=== PATIENT | male | born 1950 | race Caucasian/White ===

== ENCOUNTER 2018-07-21 07:49 | Inpatient (IN) | payer MEDICARE ==
[2018-07-21 08:38] LABS: ABS Basophils 0 10^3/ul (0-0.2); ABS Eosinophils 0 10^3/ul (0-0.6); ABS Lymphocytes 0.5 10^3/ul (1.0-4.8); ABS Monocytes 1.3 10^3/ul (0-0.8); ABS Neutrophils 15.2 10^3/ul (1.5-7.7); ABS Nucleated RBC 0 10^3/ul; Eosinophil % 0.1 %; Hematocrit 34 % (42-52); Hemoglobin 11.7 g/dl (14.0-18.0); Mean Corpuscular HGB Conc 34 g/dl (31-36); Mean Corpuscular Hemoglobin 31 pg (27-31); Mean Corpuscular Volume 91 fL (80-94); Mean Platelet Volume 6.9 fL (7.4-10.4); Nucleated Red Blood Cells % 0; Platelet Count 347 10^3/ul (150-450); Red Blood Count 3.75 10^6/ul (4.00-5.40); Red Cell Distribution Width 13 % (10.5-15); White Blood Count 17.1 10^3/ul (3.5-10.8)
[2018-07-21] MEDS ORDERED: Levofloxacin 750 MG IVPREMIX(* 750 MG/150 ML BAG IVPB ONE (08:42)
[2018-07-21] MEDS ORDERED: Piperacillin/Tazobac ADVAN(*) 3.375 GM in NS 0.9% 100 ML* 100 ML IVPB ONE (08:42)
--- NOTE | 2018-07-21 08:42 | ED ---
HPI Febrile Illness - HPI Summary HPI Summary: Patient is a 67-year-old male from an adult residential program, the [facility] , presenting to the ED with cough, congestion, fatigue and subjective fevers over the course of 10 days. History of CHF, atrial flutter, prostate cancer and pneumonias which have required hospital admissions. Patient is endorsing cough all evening and not feeling well. Staff noted his fever to be 103 and SPO2 was 91%. Patient was then placed on [address] a non-rebreather mask and sent to the ED. Patient states over the course of the last 10 days he feels he has been worsening and has not gone out of bed much. He also endorses decreased PO intake. - History of Current Complaint Chief Complaint: EDGeneral Time Seen by Provider: 07/21/18 08:02 Hx Obtained From: Patient, Family/Elevator Technician Onset/Duration: Started Days Ago - 10 days ago Timing: Constant Initial Severity: Moderate Current Severity: Moderate Pain Intensity: 4 Pain Scale Used: 0-10 Numeric Aggravating Factors: Nothing Alleviating Factors: Nothing Associated Signs and Symptoms: Chills, Cough, Diaphoresis - Risk Factors Pseudomonas Risk Factors: Negative - Additional Pertinent History Referred By: Other - [facility] Current Antibiotics: No Fever Imaging Clerk Taken: None - Allergy/Home Medications Allergies/Adverse Reactions: Allergies Allergy/AdvReac Type Severity Reaction Status Date / Time warfarin Allergy Unknown Verified 07/21/18 08:03 Reaction Details Home Medications: Home Medications Acetaminophen 650 mg PO SEE INSTRUCTIONS PRN 07/21/18 [History Confirmed ] Al Hydrox/Mg Hydrox/Simet LIQ* [Maalox Plus*] 30 ml PO Q4H PRN 07/21/18 [ History Confirmed 07/21/18] Albuterol inh POWDER (NF) [Proair Respiclick] 2 puff INH SEE INSTRUCTIONS PRN [History Confirmed 07/21/18] Aspirin 325 mg PO DAILY 07/21/18 [History Confirmed 07/21/18] Carvedilol 6.25 mg PO BID 07/21/18 [History Confirmed 07/21/18] Furosemide TAB* [Lasix TAB*] 40 mg PO BID 07/21/18 [History Confirmed 07/21/18] Kaopectate 30 ml PO SEE INSTRUCTIONS PRN 07/21/18 [History Confirmed 07/21/18] Losartan TAB* [Cozaar TAB*] 25 mg PO DAILY 07/21/18 [History Confirmed 07/21/18] Magnesium Hydroxide LIQ* [Milk of Magnesia LIQ*] 30 ml PO BID PRN 07/21/18 [ History Confirmed 07/21/18] guaiFENesin LIQ* [Robitussin*] 5 mg PO Q4H PRN 07/21/18 [History Confirmed 07/21] PMH/Surg Hx/FS Hx/Imm Hx Previously Healthy: Yes - Immunization History Hx Pertussis Vaccination: No Immunizations Up to Date: No Infectious Disease History: No Infectious Disease History: Denies: Traveled Outside the [place] in Last 30 Days - Social History Occupation: Unemployed, Disabled Lives: Snf Alcohol Use: None Hx Substance Use: No Substance Use Type: Reports: None Smoking Status (MU): Never Smoked Tobacco Review of Systems Positive: Fever, Chills, Fatigue, Skin Diaphoresis Negative: Photophobia, Blurred Vision Negative: Palpitations, Chest Pain Positive: Shortness Of Breath, Cough Positive: no symptoms reported, see HPI Negative: Arthralgia, Myalgia Negative: Headache, Weakness All Other Systems Reviewed And Are Negative: Yes Physical Exam Triage Information Reviewed: Yes Vital Signs On Initial Exam: Initial Vitals Temp Pulse Resp BP Pulse Ox 101.5 F 79 22 118/48 95 07/21/18 07:56 07/21/18 07:56 07/21/18 07:56 07/21/18 07:56 07/21/18 07:56 Vital Signs Reviewed: Yes Appearance: Positive: Ill-Appearing Skin: Positive: Skin Color Reflects Adequate Perfusion, Diaphoretic Head/Face: Positive: Normal Head/Face Inspection Eyes: Positive: EOMI, CATIE, Conjunctiva Clear Neck: Positive: No Lymphadenopathy Respiratory/Lung Sounds: Positive: Decreased Breath Sounds, Rhonchi - RLL Cardiovascular: Positive: Pulses are Symmetrical in both Upper and Lower Extremities. Negative: Leg Edema Left, Leg Edema Right Musculoskeletal: Positive: Strength/ROM Intact Neurological: Positive: Speech Normal Psychiatric: Positive: Normal, Affect/Mood Appropriate Diagnostics - Vital Signs Vital Signs Temp Pulse Resp BP Pulse Ox 07/21/18 08:00 79 96 07/21/18 07:59 79 94 07/21/18 07:58 80 118/48 96 07/21/18 07:56 101.5 F 79 22 118/48 95 - Laboratory Lab Results: Lab Results 07/21/18 07/21/18 Range/Units 08:23 08:29 WBC 17.1 H (3.5-10.8) 10^3/ul RBC 3.75 L (4.00-5.40) 10^6/ul Hgb 11.7 L (14.0-18.0) g/dl Hct 34 L (42-52) % MCV 91 (80-94) fL MCH 31 (27-31) pg MCHC 34 (31-36) g/dl RDW 13 (10.5-15) % Plt Count 347 (150-450) 10^3/ul MPV 6.9 L (7.4-10.4) fL Neut % (Auto) 89.3 % Lymph % (Auto) 3.0 % [place] % (Auto) 7.4 % Eos % (Auto) 0.1 % Baso % (Auto) 0.2 % Absolute Neuts (auto) 15.2 H (1.5-7.7) 10^3/ul Absolute Lymphs (auto) 0.5 L (1.0-4.8) 10^3/ul Absolute Monos (auto) 1.3 H (0-0.8) 10^3/ul Absolute Eos (auto) 0 (0-0.6) 10^3/ul Absolute Basos (auto) 0 (0-0.2) 10^3/ul Absolute Nucleated RBC 0 10^3/ul Nucleated RBC % 0 Influenza A (Rapid) Negative (Negative) Influenza B (Rapid) Negative (Negative) Result Diagrams: 07/21/18 08:23 07/21/18 08:23 Lab Statement: Any lab studies that have been ordered have been reviewed, and results considered in the medical decision making process. Course/Dx - Course Course Of Treatment: During the course of treatment, the patient is evaluated for fever, cough, sweats, chills and fatigue. He is high risk for PNA/ immunocompromised d/t his community living situation and CHF. His vital signs on arrival are noted to be 101.5, respirations 22 and 95% on 15L on a nonrebreather mask which he does not normally use at baseline. For these reasons, septic protocol was initiated immediately on arrival. However due to his CHF, began with 1 L fluids until labs were obtained to assess severity of CHF. Zosyn and Levaquin given. He continues to be on the nonrebreather mask with some improvement however his sat continues to remain at around 95%. Labs impressive for a 17,000 white count and significant left shift. Physical exam reveals RLL crackles and decreased breath sounds throughout otherwise. O2 sat at 97% and therefore switched from a nonrebreather mask to nasal cannula. 95% on 5L nasal cannula. He does not use oxygen at baseline at home. IMPRESSION: #. Moderately large subpulmonic RIGHT pleural effusion with proportional atelectasis. #. Probable bilateral inflammatory infiltrates/pneumonia. BNP 292 and another 1L NS ordered. Discussed with Dr. Rodriguez at 10:15am who agrees to see patient in the ED. - Febrile Illness Differential Diagnoses: Bacteremia, Fever of Unknown Origin, Pneumonia - Diagnoses Provider Diagnoses: Pneumonia, Pleural effusion - Provider Notifications Discussed Care Of Patient With: Nabil Rodriguez Time Discussed With Above Provider: 10:15 - will see patient in ED Instructed by Provider To: Admit As Inpatient - Critical Care Time Critical Care Time: 30-74 min Discharge - Sign-Out/Discharge Documenting (check all that apply): Patient Departure - Discharge Plan Condition: Fair Disposition: ADMITTED TO [facility] Referrals: Dickson FRAGOSO,Fermín Costello [Primary Care Provider] - - Billing Disposition and Condition Condition: FAIR Disposition: Admitted to [facility]
[2018-07-21] MEDS ORDERED: NS 0.9% 1000 ML* 1,000 ML IV ONE ×2 (08:44→10:18)
[2018-07-21 09:13] LABS: Albumin 3.1 g/dL (3.2-5.2); Albumin/Globulin Ratio 0.9 (1-3); BUN/Creatinine Ratio 17.6 (8-20); C Reactive Protein 271.47 mg/L (<8.01); Calcium 9.5 mg/dL (8.6-10.3); EGFR Non-African American 105.8 (>60); Globulin 3.4 g/dL (2-4); Total Bilirubin 0.6 mg/dL (0.2-1.0); Total Protein 6.5 g/dL (6.4-8.9)
[2018-07-21] MEDS ORDERED: Piperacillin/Tazobac (*) 3.375 GM BAG ONE (10:35)
[2018-07-21] MEDS ORDERED: Albuterol inh POWDER (NF) 1 PUFF MDI INH PRN (11:07)
[2018-07-21] MEDS ORDERED: guaiFENesin LIQ* 100 MG/5 ML UDC PO PRN (11:07)
[2018-07-21] MEDS ORDERED: Zosyn per Pharmacy* NOTE FOLLOW UP SCH (12:00)
[2018-07-21] MEDS ORDERED: Albuterol/Ipratropium NEB.SOL* Albuterol 2.5 MG/Ipratropium 0.5 MG 3 ML INH SCH (12:00)
[2018-07-21] MEDS ORDERED: Albuterol HFA INHALER* 8 gm MDI INH PRN (12:31)
--- NOTE | 2018-07-21 13:19 | HP ---
CC: Dr. Forman * ADMISSION HISTORY AND PHYSICAL: DATE OF ADMISSION: 07/21/18 PRIMARY CARE PROVIDER: Dr. Forman in [place] at [facility]. ATTENDING FOR THIS ADMISSION: Dr. Nabil Rodriguez.* (DICTATED BY CATE PAREKH NP) CHIEF COMPLAINT: Ten days of malaise, fever, fatigue, cough, and now shortness of breath. HISTORY OF PRESENT ILLNESS: This is a 67-year-old male patient, who resides at the [facility], moved to [place] approximately 7 to 8 months ago from [place] because he required some assistance after having a hospitalization down in [place]. The patient states he had a bout with congestive heart failure, paroxysmal AFib, pneumonia and respiratory failure for which he was hospitalized for 2 months. This all happened in 2014. He was convalescing and still had some additional needs for which he was accepted to reside at the [facility]. The patient states that he was at [facility] last Thursday and felt that he could not get through the mass because he was having fever and chills and felt very fatigued. Workers at the [facility] reported that the patient may have minimized some of his symptoms over the last week and a half and he reportedly had an increasing cough, has not been out of bed, has not wanted to eat or ambulate and today it was discovered that he did have a subjective fever of around 102. He was then brought to the emergency department for evaluation. Upon examination in the ED, he was noted to have some respiratory failure, was placed on 15 L nonrebreather for low O2 saturation, was also found to have high white count and continued fever. For these reasons, we were asked to evaluate the patient for admission. PAST MEDICAL HISTORY: Significant for congestive heart failure, unknown whether diastolic or systolic per the patient's report; history of asthma; history of paroxysmal atrial fibrillation; arthritis; and hypertension. PAST SURGICAL HISTORY: None reported. HOME MEDICATIONS: Include: 1. Guaifenesin 5 mL p.o. q.4 hours as needed. 2. Kaopectate 30 mL p.o. q.6 hours p.r.n. 3. Milk of magnesia 30 mL p.o. b.i.d. p.r.n. 4. Carvedilol 6.25 mg p.o. b.i.d. 5. Aspirin 325 mg daily. 6. Maalox 30 mL q.4 hours as needed. 7. Tylenol 650 mg q.6 hours as needed. 8. Albuterol (ProAir) 2 puffs q.4 hours as needed. 9. Losartan 25 mg p.o. daily. 10. Furosemide 40 mg p.o. b.i.d. FAMILY HISTORY: Both parents with cancer, now . SOCIAL HISTORY: The patient does not report any smoking. Does report a remote history of alcohol abuse. He has been sober since 1997. Denies any illicit drug use. He is unmarried and again lives in a residential at [facility]. His healthcare proxy and emergency contact is his brother, Clem Mckinney, phone number is [phone] or his nephew, Kevan, . They are both local to the area. REVIEW OF SYSTEMS: A 10-point review of systems is negative except as noted in the HPI above. PHYSICAL EXAMINATION GENERAL: The patient is alert, frail, ill-appearing. VITAL SIGNS: Currently, blood pressure 98/65, heart rate 75, respiratory rate 24, O2 saturation 97% on 5 L nasal cannula, temperature is 100.5 down from 101.5 upon arrival. HEENT: The patient is atraumatic, normocephalic. PERRLA with nonicteric sclerae. He does have some exudate from the inner canthus of his left eye that does appear purulent; however, his sclerae are clear. There was no redness or other issues noted. His oral mucosa is dry. Dentition is poor. Tongue is midline. NECK: Supple, nontender. No JVD noted. No carotid bruits auscultated. LUNGS: Clear at the apices. Very poor breath sounds on the right more than senior living up the right base. Left base with some diffuse rhonchi and intermittent rales. No appreciable wheeze. CARDIOVASCULAR: S1, S2 present. Rate and rhythm are regular. No murmurs, gallops, or rubs noted. He has regular sinus rhythm on telemetry. ABDOMEN: Soft, nontender, and nondistended. Positive bowel sounds in all 4 quadrants. : Deferred. MUSCULOSKELETAL: There is no clubbing, no cyanosis, no bipedal edema. He has + 2 distal pulses palpable. He does have some general weakness. NEUROLOGIC: He is grossly intact. Alert and oriented x3 with no focal deficits. PSYCHIATRIC: He is cooperative and appropriate. DIAGNOSTIC STUDIES/LAB DATA: WBCs 17.1, RBCs 3.75, hemoglobin 11.7, hematocrit 34, platelets 347. Sodium 130, potassium 4.0, chloride 97, CO2 25, creatinine 0.74, BUN 13, GFR is 105.8, glucose 104, lactic acid 0.8, calcium 9.5. Bilirubin 0.60, AST 31, ALT 38, alk phos 77. Troponin is negative at 0.03. CRP is 271.47. BNP is 292. Total protein 6.5, albumin 3.1, globulin 3.4. Influenza A and B rapid are negative. Blood cultures are pending. Imaging: EKG shows regular sinus rhythm with a right bundle branch block with no further acute ST segment changes noted. Chest x-ray, official read also evaluated by myself and the ER providers, shows moderately large subpulmonic right pleural effusion with proportional atelectasis and bilateral inflammatory infiltrates/pneumonia. IMPRESSION: This is a 67-year-old male that presented with fever, malaise and cough x10 days, being admitted for same. DIAGNOSES: 1. Bilateral pneumonia, community acquired with right-sided large pleural effusion. The patient does have significant amount of leukocytosis. His influenza swab is negative. We will send him for Strep pneumo and Legionella antigens in the urine. He has already received empiric Zosyn and 1 dose of Levaquin in the emergency department. He is also having accompanying respiratory failure, which is likely secondary to this large right pleural effusion. Initially, he was on 15 L nonrebreather; however, he is satting well on 5 L nasal cannula. This will be continued and titrated and weaned as possible. We will start him on DuoNeb q.6 hours with flutter valve, continue his albuterol and continue guaifenesin. We will also add a lactic acid and follow blood cultures and assess for bacteremia. 2. For the patient's history of heart failure, he does have an echocardiogram from earlier this year that shows preserved ejection fraction. The patient is unsure if he has diastolic dysfunction or systolic dysfunction in the past; however, his most recent echo appears to be stable. We will continue him on his Coreg and his ARB. 3. For his history of hypertension, again continue his ARB. 4. For his history of paroxysmal atrial fibrillation, the patient is currently in regular sinus rhythm. He states he was told he had an allergy to warfarin and was started on full dose aspirin only. This will be continued. 5. For his history of asthma, the patient does take albuterol at home; however , given his significant lung issues, we will also add nebulizers and flutter valve for his treatment. 6. Fluids, electrolytes, and nutrition: The patient will be placed on a heart - healthy diet. He has already had 2 L of IV fluids. He is not appearing bacteremic at this time. His blood pressure is slightly lower right now. He does not have any accompanying tachycardia. IV fluids will be continued at maintenance and we should monitor for fluid overload. 7. DVT prophylaxis: He is scoring high on the evaluation scale. We will continue him on heparin 5000 units q.8 hours. 8. Disposition: The patient is admitted inpatient. Also, Dr. Pratt will be consulted for possibility of tapping the right pleural effusion to increase the patient's oxygenation. The rest of the patient's course will be determined by further diagnostics, laboratories, and any other input from other providers as warranted during this admission. TIME SPENT: Approximately 60 minutes evaluating the patient, physical examination, interfacing with ER providers and also discussing with Dr. Rodriguez, the attending on this case. He was in agreement with this plan. CATE PAREKH NP [id number]/[facility] #: [id number] LYNN
[2018-07-21] MEDS: Acetaminophen TAB* 325 MG PO PRN ×2 (13:31→19:37)
[2018-07-21] MEDS: guaiFENesin ER TAB 600 MG PO SCH ×2 (13:32→19:38)
[2018-07-21] MEDS: Heparin VIAL(*) 5000 UNITS/ML VIAL (FIVE THOUSAND) SUBCUT SCH ×2 (13:33→21:18)
[2018-07-21] MEDS: Albuterol/Ipratropium NEB.SOL* Albuterol 2.5 MG/Ipratropium 0.5 MG 3 ML INH SCH ×2 (13:54→19:23)
[2018-07-21] MEDS ORDERED: ZOSYN 3.375 GM Q8H per EXTENDED INFUSION IVPB SCH ×2 (14:30)
[2018-07-21] MEDS: ZOSYN 3.375 GM Q8H per EXTENDED INFUSION IVPB SCH ×2 (17:18)
--- NOTE | 2018-07-21 18:32 | CONS ---
PULMONARY CONSULTATION REPORT: DATE OF CONSULT: 07/21/18 CONSULTATION REQUESTED BY: Jasmina Hudson NP. REASON FOR CONSULT: Evaluation of pneumonia and pleural effusion. HISTORY OF PRESENT ILLNESS: The patient is a 67-year-old male with a history of congestive heart failure, asthma, paroxysmal atrial fibrillation, arthritis, hypertension, who was transferred from [facility] for evaluation of malaise, fever, cough and shortness of breath. He recently moved to [place] from [place] 7 to 8 months ago. He was hospitalized for congestive heart failure and atrial fibrillation, complicated by pneumonia, respiratory failure for 2 months in the past. He was requiring more help and was in [facility]. He was at [facility] last Thursday, felt like he could not complete the mass and had fevers, chills and felt significantly fatigued. The patient also with fever of 102. He was brought in for further evaluation. He was hypoxemic , required 15 L O2 through nonrebreather when he came in, currently he is changed to O2 with nasal cannula at 4 to 5 L. The patient was seen and examined at bedside. The patient is in significant respiratory distress. He reports feeling feverish. The patient denies chest pain. He has been coughing with significant amount of sputum production. The patient was initiated on antibiotics for pneumonia. The patient had chest x- ray in the emergency room. I personally reviewed the chest x-ray. The patient noted to have large right- sided pleural effusion with basal atelectasis. The patient also with infiltrates bilaterally. He was initiated on broad spectrum antibiotics. He received DuoNeb in the emergency room. He was also started on Mucinex. Septic workup were sent. Pulmonary consultation was requested for evaluation of pleural effusion. PAST MEDICAL HISTORY: 1. Congestive heart failure. 2. Asthma. 3. Paroxysmal atrial fibrillation. 4. Arthritis. 5. Hypertension. PAST SURGICAL HISTORY: None. MEDICATIONS: 1. Guaifenesin. 2. Kaopectate. 3. Milk of magnesia. 4. Carvedilol. 5. Aspirin. 6. Maalox. 7. Tylenol. 8. Albuterol. 9. Losartan. 10. Furosemide. FAMILY HISTORY: Parents with cancer, now . SOCIAL HISTORY: Does not report history of smoking, remote history of alcohol abuse. He has been sober since 1997. Denies drug abuse. REVIEW OF SYSTEMS: All systems were reviewed and as per HPI. PHYSICAL EXAM: The patient in bed, in mild distress. Vital Signs: Temperature 101.1, pulse 79 beats per minute, respiratory rate 20 per minute, O2 sats 96% on 5 L, blood pressure 128/56. HEENT: Pupils equal, reactive to light. Mucous membranes moist. Lungs: Diminished air entry on the right side. Good air entry on the left side. Diffuse rhonchi and rales present. Cardiovascular: S1, S2 present, regular. Abdomen: Soft, nontender, nondistended, bowel sounds present. Extremities: Normal range of motion, 2+ pulses. Neurologic: Alert, awake, oriented x3. No focal deficits. DIAGNOSTIC STUDIES/LAB DATA: WBC count 17.1, hemoglobin 11.7, hematocrit 34, platelet count 347. Sodium 130, potassium 4.0, chloride 97, bicarb 25, BUN 13, creatinine 0.74, lactic acid 0.9, CRP 271, BNP 229. Influenza A and B negative. Sputum cultures are pending. Chest x-ray as described above in HPI. IMPRESSION AND RECOMMENDATION: 67-year-old male with prior history of pneumonia , admitted with generalized malaise, fevers, cough and phlegm, recently was found to be in acute hypoxemic respiratory failure secondary to pneumonia. The patient also with pleural effusion. 1. Community-acquired pneumonia. 2. Hypoxemic respiratory failure. 3. Pleural effusion. Given fever and infiltrate on chest x-ray, will need to rule out parapneumonic effusion or emphysema. Will schedule the patient for thoracentesis with ultrasound guidance. Procedure was discussed in detail with the patient. Associated risks and benefits were thoroughly explained. Risk of pneumothorax was discussed. The patient agreeable to undergoing the procedure. Continue with current antibiotic coverage. Continue with nebulizers. Continue with O2 supplementation. The patient would require close monitoring given hypoxemic respiratory failure as there is concern for clinical deterioration. Thank you for allowing me to participate in the care of your patient. Will follow up with you. [id number]/[facility] #: [id number] LYNN
[2018-07-21] MEDS: Furosemide TAB* 40 MG PO SCH (19:38)
[2018-07-21] MEDS: Carvedilol TAB* 6.25 MG PO SCH (19:38)
[2018-07-22] MEDS: ZOSYN 3.375 GM Q8H per EXTENDED INFUSION IVPB SCH ×6 (00:16→16:02)
[2018-07-22] MEDS: Albuterol/Ipratropium NEB.SOL* Albuterol 2.5 MG/Ipratropium 0.5 MG 3 ML INH SCH ×5 (01:19→21:20)
[2018-07-22] MEDS: Acetaminophen TAB* 325 MG PO PRN ×3 (05:04→21:25)
[2018-07-22] MEDS: Heparin VIAL(*) 5000 UNITS/ML VIAL (FIVE THOUSAND) SUBCUT SCH ×3 (05:04→21:25)
[2018-07-22 07:04] LABS: ABS Basophils 0 10^3/ul (0-0.2); ABS Eosinophils 0 10^3/ul (0-0.6); ABS Lymphocytes 0.7 10^3/ul (1.0-4.8); ABS Monocytes 1.2 10^3/ul (0-0.8); ABS Neutrophils 15.6 10^3/ul (1.5-7.7); ABS Nucleated RBC 0 10^3/ul; Eosinophil % 0.1 %; Hematocrit 33 % (42-52); Hemoglobin 11.3 g/dl (14.0-18.0); Lymphocyte % 4.1 %; Mean Corpuscular HGB Conc 34 g/dl (31-36); Mean Corpuscular Hemoglobin 32 pg (27-31); Mean Corpuscular Volume 92 fL (80-94); Mean Platelet Volume 6.8 fL (7.4-10.4); Nucleated Red Blood Cells % 0; Platelet Count 333 10^3/ul (150-450); Red Blood Count 3.59 10^6/ul (4.00-5.40); Red Cell Distribution Width 13 % (10.5-15); White Blood Count 17.5 10^3/ul (3.5-10.8)
[2018-07-22 07:21] LABS: Albumin 2.8 g/dL (3.2-5.2); Albumin/Globulin Ratio 0.9 (1-3); BUN/Creatinine Ratio 15.9 (8-20); EGFR Non-African American 114.7 (>60); Potassium 3.5 mmol/L (3.5-5.0); Total Bilirubin 0.5 mg/dL (0.2-1.0); Total Protein 5.8 g/dL (6.4-8.9)
[2018-07-22] MEDS: Carvedilol TAB* 6.25 MG PO SCH ×2 (08:47→21:50)
[2018-07-22] MEDS: Aspirin TAB* 325 MG PO SCH (08:47)
[2018-07-22] MEDS: guaiFENesin ER TAB 600 MG PO SCH ×2 (08:47→21:25)
[2018-07-22] MEDS: Furosemide TAB* 40 MG PO SCH (08:48)
[2018-07-22] MEDS ORDERED: Losartan TAB* 25 MG PO SCH (09:00)
[2018-07-22 14:30] LABS: Urine Appearance Clear; Urine Bilirubin Negative (Negative); Urine Blood Negative (Negative); Urine Color Yellow; Urine Glucose Negative (Negative); Urine Ketones Negative (Negative); Urine Nitrite Negative (Negative); Urine Protein Negative (Negative); Urine Specific Gravity 1.008 (1.010-1.030); Urine Urobilinogen Negative (Negative)
[2018-07-22] MEDS ORDERED: Diltiazem IV* 5 MG/ML 5 ML VIAL (for loading dose/IV Push) (25 MG) IV SLOW PU ONE (15:02)
[2018-07-22] MEDS ORDERED: NS 0.9% 1000 ML* 1,000 ML IV ONE (15:02)
[2018-07-22] MEDS ORDERED: Diltiazem IV VIAL* 125 MG in NS 0.9% 100 ML* 100 ML IV SCH (15:30)
[2018-07-22] MEDS: Al Hydrox/Mg Hydrox/Simet LIQ* 30 ML UDC PO PRN ×2 (15:55→21:25)
--- NOTE | 2018-07-22 16:13 | ECHO ---
Patient: DEWAYNE FLANAGAN [facility] Rec#: [id number] : 1950 Date: 07/22/2018 Age: 67y Height: 193 cm / 76.0 in Weight: 111.1 kg / 244.9 lbs Sex: M BSA: 2.41 Room#: 453 Admit Date#: 07/21/2018 Type: Inpatient Referring: Jasmina Austin Reading: Eric Schmidt MD Arch Pad Cementer: Aline TeagueDEAN CC: Fermín Forman MD Transthoracic Echocardiogram Indication: Abnormal EKG BP: 105/54 HR: 113 Rhythm: Tachycardia Findings History: Heart failure, HTN, PAF, COPD. Technical Comments: The study quality is fair. Completed at 1545. Left Ventricle: The left ventricular chamber size is normal. Mild concentric left ventricular hypertrophy is observed. Global left ventricular wall motion and contractility are within normal limits. There is normal left ventricular systolic function. The estimated ejection fraction is 55-60%. There is a left ventricular septal wall motion abnormality observed, possibly due to the presence of a right bundle branch block. The assessment of diastolic function is non-diagnostic. Left Atrium: The left atrium is mildly dilated. Right Ventricle: Moderator Band present. The right ventricle is mildly dilated. The right ventricular global systolic function is low normal. Right Atrium: The right atrial cavity size is normal. Aortic Valve: The aortic valve is trileaflet. The aortic valve leaflets are mildly thickened.especially at the commissures near the annulus. There is trace to mild aortic regurgitation. There is no evidence of aortic stenosis. Mitral Valve: The mitral valve leaflets are mildly thickened. There is a trace of mitral regurgitation. There is no evidence of mitral stenosis. Tricuspid Valve: The tricuspid valve leaflets are normal. There is trace tricuspid regurgitation. The right ventricular systolic pressure is estimated at 19 mmHg. There is no tricuspid stenosis. Pulmonic Valve: The pulmonic valve appears normal. There is a trace pulmonic regurgitation. There is no pulmonic stenosis. Pericardium: A trivial pericardial effusion is visualized. There are no signs of significant hemodynamic compromise. There is a circumferential pericardial effusion. A pericardial fat pad is visualized. Aorta: There is mild dilatation of the ascending aorta. There is no dilatation of the aortic arch. The aortic root is normal in size. Pulmonary Artery: The main pulmonary artery appears normal. Venous: The inferior vena cava appears normal in size. There is a greater than 50% respiratory change in the inferior vena cava dimension. Conclusions The patient was in a rapid irregular heart rhythm during the exam which may be atrial fibrillation and may interfere with this assessment. Mild concentric left ventricular hypertrophy is observed. There is normal left ventricular systolic function. The estimated ejection fraction is 55-60%. There is a left ventricular septal wall motion abnormality observed, possibly due to the presence of a right bundle branch block. The left atrium is mildly dilated. The right ventricle is mildly dilated. The right ventricular global systolic function is low normal. The aortic valve leaflets are mildly thickened.especially at the commissures near the annulus. There is trace to mild aortic regurgitation. There is a trace of mitral regurgitation. There is trace tricuspid regurgitation. The right ventricular systolic pressure is estimated at 19 mmHg. There is mild dilatation of the ascending aorta. Similar to the prior study of 02/2018 except for the rhythm and mild RV dilatation/hypokinesis and the minor pericardial effusion. Measurements Name Value Normal Range RVIDd (AP) 2D 3.6 cm (0.9 - 2.6) RVDdMajor (2D) 4.5 cm (2.2 - 4.4) RAd ISD 4CH 4.8 cm (3.4 - 4.9) RA (A4C)W 3.8 cm (2.9 - 4.6) IVSd (2D) 1.2 cm (0.6 - 1) LVPWd (2D) 1.1 cm (0.6 - 1) LVIDd (2D) 4.8 cm (3.6 - 5.4) LVIDs (2D) 2.8 cm - LV FS (2D) 40 % (25 - 45) Aortic Annulus 2.8 cm (1.4 - 2.6) Ao root diameter (2D) 3.5 cm (2.1 - 3.5) Ascending Ao 3.5 cm (2.1 - 3.4) Aortic arch 3.1 cm (1.8 - 3.4) LA dimension (AP) 2D 5 cm (2.3 - 3.8) LAd ISD 4CH 5.9 cm (2.9 - 5.3) LA ISD 4CH W 4.4 cm (2.5 - 4.5) Name Value Normal Range LA ESV BP (A/L) index 28 ml/m2 - Name Value Normal Range MV E-wave Vmax 0.7 m/sec - MV deceleration time 149 msec - MV A-wave Vmax 1 m/sec - MV E:A ratio 0.7 ratio - LV septal e' Vmax 0.06 m/sec - LV lateral e' Vmax 0.09 m/sec - LV E:e' septal ratio 11.7 ratio - LV E:e' lateral ratio 7.8 ratio - Name Value Normal Range AV Vmax 1.9 m/sec - AV VTI 28 cm - AV peak gradient 14 mmHg - AV mean gradient 5 mmHg - LVOT Vmax 1.2 m/sec - LVOT VTI 19 cm - LVOT peak gradient 6 mmHg - LVOT mean gradient 3 mmHg - [place] Vmax 0.7 m/sec - Name Value Normal Range TR Vmax 2 m/sec - TR peak gradient 16 mmHg - RAP 3 mmHg - RVSP 19 mmHg - IVC diameter 1.6 cm - Name Value Normal Range PV Vmax 0.8 m/sec - PV peak gradient 3 mmHg -
--- NOTE | 2018-07-22 16:40 | PN ---
Progress Note - Progress Note Date of Service: 07/22/18 - Pulm f/u note Note: Pt seen and examined at bedside. Pt reports slight improvement in sx. Still congested and coughing Active Medications Generic Name Dose Route Start Last Admin Trade Name Freq PRN Reason Stop Dose Admin Acetaminophen 650 mg 07/21/18 13:03 07/22/18 10:37 Tylenol Tab* PO 650 mg Q6H PRN Administration fever/discomfort Al Hydrox/Mg Hydrox/Simethicone 30 ml 07/21/18 11:07 07/22/18 15:55 Maalox Plus* PO 30 ml Q4H PRN Administration stomach Albuterol 2 puff 07/21/18 12:31 Ventolin Hfa Inhaler* INH Q4H PRN SOB/WHEEZING Albuterol/Ipratropium 1 neb 07/21/18 13:00 07/22/18 13:14 Duoneb (Albuterol 2.5 Mg/Ipratropium 0.5 Mg) INH 07/22/18 19:01 1 neb [id number] AWAKE PING Administration Aspirin 325 mg 07/22/18 09:00 07/22/18 08:47 Aspirin Tab* PO 325 mg DAILY PING Administration Carvedilol 6.25 mg 07/21/18 21:00 07/22/18 08:47 Coreg Tab* PO 6.25 mg BID PING Administration Furosemide 40 mg 07/21/18 21:00 07/22/18 08:48 Lasix Tab* PO 40 mg BID PING Administration Guaifenesin 600 mg 07/21/18 12:00 07/22/18 08:47 Mucinex* PO 600 mg BID PING Administration Heparin Sodium (Porcine) 5,000 units 07/21/18 14:00 07/22/18 13:20 Heparin Vial(*) SUBCUT 5,000 units Q8HR PING Administration Piperacillin Sod/Tazobactam 100 mls @ 25 mls/hr 07/21/18 16:30 07/22/18 16:02 Sod 3.375 gm/ Sodium Chloride IVPB 25 mls/hr 0030,0830,1630 PING Administration Diltiazem HCl 125 mg/ Sodium 125 mls @ 5 mls/hr 07/22/18 15:30 07/22/18 16:02 Chloride IV 5 mls/hr Q24H PING Administration Protocol Losartan Potassium 25 mg 07/22/18 09:00 07/22/18 08:48 Cozaar Tab* PO 25 mg DAILY PING Administration Pharmacy Consult 1 note 07/21/18 12:00 Zosyn Per Pharmacy* FOLLOW UP .ZOSYN PER PHARMACY PING Vital Signs Temp Pulse Resp BP Pulse Ox 98.4 F 84 20 103/64 91 07/22/18 15:04 07/22/18 16:07 07/22/18 15:04 07/22/18 16:31 07/22/18 16:01 Laboratory Results - last 24 hr 07/22/18 07/22/18 07/22/18 06:56 06:56 14:10 WBC 17.5 H RBC 3.59 L Hgb 11.3 L Hct 33 L MCV 92 MCH 32 H MCHC 34 RDW 13 Plt Count 333 MPV 6.8 L Neut % (Auto) 88.9 Lymph % (Auto) 4.1 [place] % (Auto) 6.7 Eos % (Auto) 0.1 Baso % (Auto) 0.2 Absolute Neuts (auto) 15.6 H Absolute Lymphs (auto) 0.7 L Absolute Monos (auto) 1.2 H Absolute Eos (auto) 0 Absolute Basos (auto) 0 Absolute Nucleated RBC 0 Nucleated RBC % 0 Sodium 132 L Potassium 3.5 Chloride 101 Carbon Dioxide 24 Anion Gap 7 BUN 11 Creatinine 0.69 Est GFR ( Amer) 138.8 Est GFR (Non-Af Amer) 114.7 BUN/Creatinine Ratio 15.9 Glucose 102 H Calcium 9.0 Magnesium Total Bilirubin 0.50 AST 44 H ALT 50 Alkaline Phosphatase 70 Total Protein 5.8 L Albumin 2.8 L Globulin 3.0 Albumin/Globulin Ratio 0.9 L Urine Color Yellow Urine Appearance Clear Urine pH 5.0 Ur Specific [place] 1.008 L Urine Protein Negative Urine Ketones Negative Urine Blood Negative Urine Nitrate Negative Urine Bilirubin Negative Urine Urobilinogen Negative Ur Leukocyte Esterase Negative Urine Glucose Negative 07/22/18 15:33 WBC RBC Hgb Hct MCV MCH MCHC RDW Plt Count MPV Neut % (Auto) Lymph % (Auto) [place] % (Auto) Eos % (Auto) Baso % (Auto) Absolute Neuts (auto) Absolute Lymphs (auto) Absolute Monos (auto) Absolute Eos (auto) Absolute Basos (auto) Absolute Nucleated RBC Nucleated RBC % Sodium Potassium Chloride Carbon Dioxide Anion Gap BUN Creatinine Est GFR ( Amer) Est GFR (Non-Af Amer) BUN/Creatinine Ratio Glucose Calcium Magnesium 2.1 Total Bilirubin AST ALT Alkaline Phosphatase Total Protein Albumin Globulin Albumin/Globulin Ratio Urine Color Urine Appearance Urine pH Ur Specific [place] Urine Protein Urine Ketones Urine Blood Urine Nitrate Urine Bilirubin Urine Urobilinogen Ur Leukocyte Esterase Urine Glucose O/E: Pt in NAD HEENT: PERRLA, no JVD Lungs: Diminished air entry b/l CVS: S1, S2+ Abd: Soft, BS+ Ext: Normal ROM Neuro: Alert, oriented I/R; 67 y o m with PNA. Pt on broad spectrum abx CXR suggestive of possible pl effusion Pt had U/S at bedside for thoracentesis if fluid is confirmed U/S didnot reveal any fluid Evidence of elevated Rt hemidiaphragm and atelectasis was noted Procedure was cancelled as a result c/w abx c/w bronchodialtors Will need CT chest if sx not improving
--- NOTE | 2018-07-22 17:27 | PN ---
Subjective Date of Service: 07/22/18 Interval History: Patient seen and examined. Remains ill-appearing with cough and low grade temps. Denies chills, no chest pain, no further complaints. Per RN, was having changes on tele, appeared to have pauses, EKG showed sinsu lizbeth but now in afib with RVR. Objective Active Medications: Acetaminophen (Tylenol Tab*) 650 mg PO Q6H PRN PRN Reason: fever/discomfort Last Admin: 07/22/18 10:37 Dose: 650 mg Al Hydrox/Mg Hydrox/Simethicone (Maalox Plus*) 30 ml PO Q4H PRN PRN Reason: stomach Last Admin: 07/22/18 15:55 Dose: 30 ml Albuterol (Ventolin Hfa Inhaler*) 2 puff INH Q4H PRN PRN Reason: SOB/WHEEZING Albuterol/Ipratropium (Duoneb (Albuterol 2.5 Mg/Ipratropium 0.5 Mg)) 1 neb INH [id number] AWAKE [facility] Stop: 07/22/18 19:01 Last Admin: 07/22/18 13:14 Dose: 1 neb Aspirin (Aspirin Tab*) 325 mg PO DAILY [facility] Last Admin: 07/22/18 08:47 Dose: 325 mg Carvedilol (Coreg Tab*) 6.25 mg PO BID [facility] Last Admin: 07/22/18 08:47 Dose: 6.25 mg Furosemide (Lasix Tab*) 40 mg PO BID [facility] Last Admin: 07/22/18 08:48 Dose: 40 mg Guaifenesin (Mucinex*) 600 mg PO BID [facility] Last Admin: 07/22/18 08:47 Dose: 600 mg Heparin Sodium (Porcine) (Heparin Vial(*)) 5,000 units SUBCUT Q8HR [facility] Last Admin: 07/22/18 13:20 Dose: 5,000 units Piperacillin Sod/Tazobactam (Sod 3.375 gm/ Sodium Chloride) 100 mls @ 25 mls/ hr IVPB 0030,0830,1630 [facility] Last Admin: 07/22/18 16:02 Dose: 25 mls/hr Diltiazem HCl 125 mg/ Sodium (Chloride) 125 mls @ 5 mls/hr IV Q24H [facility]; Protocol Last Admin: 07/22/18 16:02 Dose: 5 mls/hr Losartan Potassium (Cozaar Tab*) 25 mg PO DAILY [facility] Last Admin: 07/22/18 08:48 Dose: 25 mg Pharmacy Consult (Zosyn Per Pharmacy*) 1 note FOLLOW UP .ZOSYN PER PHARMACY [facility] Vital Signs - 8 hr 07/22/18 07/22/18 07/22/18 11:58 13:15 15:04 Temperature 97.8 F 98.4 F Pulse Rate 57 69 82 Respiratory 16 18 20 Rate Blood Pressure 96/50 (mmHg) O2 Sat by Pulse 95 95 93 Oximetry 07/22/18 07/22/18 07/22/18 16:00 16:01 16:07 Temperature Pulse Rate 112 93 84 Respiratory Rate Blood Pressure 94/57 92/53 (mmHg) O2 Sat by Pulse 90 91 Oximetry 07/22/18 07/22/18 07/22/18 16:11 16:16 16:22 Temperature Pulse Rate Respiratory Rate Blood Pressure 98/67 95/59 78/45 (mmHg) O2 Sat by Pulse Oximetry 07/22/18 07/22/18 07/22/18 16:25 16:26 16:31 Temperature Pulse Rate Respiratory Rate Blood Pressure 83/49 95/50 103/64 (mmHg) O2 Sat by Pulse Oximetry Oxygen Devices in Use Now: Nasal Cannula Appearance: Alert, NAD Eyes: No Scleral Icterus, PERRLA Ears/Nose/Mouth/Throat: NL Teeth, Lips, Gums, Mucous Membranes Moist Neck: NL Appearance and Movements; NL JVP, Trachea Midline Respiratory: Symmetrical Chest Expansion and Respiratory Effort, - - absent breath sounds RML/RLL, diminished throughout on left Cardiovascular: - - afib rate 120's Abdominal: NL Sounds; No Tenderness; No Distention Extremities: No Edema, No Clubbing, Cyanosis Skin: No Rash or Ulcers Neurological: Alert and Oriented x 3 Nutrition: Taking PO's Result Diagrams: 07/22/18 06:56 07/22/18 06:56 Additional Lab and Data: Lab Results 07/21/18 07/21/18 Range/Units 08:23 08:29 WBC 17.1 H (3.5-10.8) 10^3/ul RBC 3.75 L (4.00-5.40) 10^6/ul Hgb 11.7 L (14.0-18.0) g/dl Hct 34 L (42-52) % MCV 91 (80-94) fL MCH 31 (27-31) pg MCHC 34 (31-36) g/dl RDW 13 (10.5-15) % Plt Count 347 (150-450) 10^3/ul MPV 6.9 L (7.4-10.4) fL Neut % (Auto) 89.3 % Lymph % (Auto) 3.0 % [place] % (Auto) 7.4 % Eos % (Auto) 0.1 % Baso % (Auto) 0.2 % Absolute Neuts (auto) 15.2 H (1.5-7.7) 10^3/ul Absolute Lymphs (auto) 0.5 L (1.0-4.8) 10^3/ul Absolute Monos (auto) 1.3 H (0-0.8) 10^3/ul Absolute Eos (auto) 0 (0-0.6) 10^3/ul Absolute Basos (auto) 0 (0-0.2) 10^3/ul Absolute Nucleated RBC 0 10^3/ul Nucleated RBC % 0 Influenza A (Rapid) Negative (Negative) Influenza B (Rapid) Negative (Negative) Microbiology and Other Data: Microbiology 07/21/18 08:23 Aerobic Blood Culture - Preliminary Blood Venous No Growth Day 1 Anaerobic Blood Culture - Preliminary No Growth Day 1 07/21/18 08:23 Aerobic Blood Culture - Preliminary Blood Venous No Growth Day 1 Anaerobic Blood Culture - Preliminary No Growth Day 1 07/21/18 11:56 Legionella Urinary Antigen - Final Urine Negative Legionella Antigen Streptococcus pneumoniae Ag Screen - Final Negative S. pneumo Antigen 07/21/18 14:00 Nasal Screen MRSA (PCR) - Final Nasal Mrsa Detected 07/21/18 11:56 Gram Stain - Final Sputum 07/21/18 08:13 Influenza Types A,B Antigen - Final Nasopharyngeal Specimen received for Influenza A/B Molecular testing Assess/Plan/Problems-Billing Assessment: This is a 67 year old male that presented to ED with 10 day complaint of fever, SOB, cough and chills, admitted for CAP/right pleural effusion. - Patient Problems (1) CAP (community acquired pneumonia) Code(s): J18.9 - PNEUMONIA, UNSPECIFIED ORGANISM SNOMED Code(s): 533901581 Comment: - Pulmonology consult appreciated - Continue zosyn per pharmacy - Follow sputum and blood cultures NTD - Nebs, flutter valve (2) Pleural effusion, right Code(s): J90 - PLEURAL EFFUSION, NOT ELSEWHERE CLASSIFIED SNOMED Code(s): 61105360 Comment: - Per pulmonology, no fluid to drain - Continue supportive care (3) PAF (paroxysmal atrial fibrillation) Code(s): I48.0 - PAROXYSMAL ATRIAL FIBRILLATION SNOMED Code(s): 036125778 Comment: - RVR today, likely secondary to acute critical infection and dehydration - Continue IVF bolus and maintenance - Cardizem 10mg IVP with drip at 5mg per hour, had asymptomatic hypotension while on drip, continue to monitor - ECHO with preserved EF and no acute changes - Remains asymptomatic, sitting up in bed and eating - If patient does not convert, will consult cardiology for additional recs, as patient is already on BB, may increase dose if tolerated - Patient on full dose ASA, has allergy to warfarin and was not recommended for NOAC as per 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 Dispo TBD.
[2018-07-22] MEDS: NS 0.9% 1000 ML* 1,000 ML IV SCH (17:34)
[2018-07-23] MEDS: ZOSYN 3.375 GM Q8H per EXTENDED INFUSION IVPB SCH ×6 (00:10→18:08)
[2018-07-23] MEDS: Albuterol/Ipratropium NEB.SOL* Albuterol 2.5 MG/Ipratropium 0.5 MG 3 ML INH SCH (01:24)
[2018-07-23] MEDS: Al Hydrox/Mg Hydrox/Simet LIQ* 30 ML UDC PO PRN ×3 (04:20→10:11)
[2018-07-23] MEDS: Acetaminophen TAB* 325 MG PO PRN ×3 (04:23→21:41)
[2018-07-23] MEDS: Heparin VIAL(*) 5000 UNITS/ML VIAL (FIVE THOUSAND) SUBCUT SCH ×3 (05:13→21:05)
[2018-07-23 06:55] LABS: ABS Basophils 0 10^3/ul (0-0.2); ABS Eosinophils 0 10^3/ul (0-0.6); ABS Lymphocytes 0.7 10^3/ul (1.0-4.8); ABS Monocytes 0.9 10^3/ul (0-0.8); ABS Neutrophils 13.1 10^3/ul (1.5-7.7); ABS Nucleated RBC 0 10^3/ul; Eosinophil % 0.1 %; Hematocrit 35 % (42-52); Hemoglobin 11.9 g/dl (14.0-18.0); Lymphocyte % 4.8 %; Mean Corpuscular HGB Conc 34 g/dl (31-36); Mean Corpuscular Hemoglobin 31 pg (27-31); Mean Corpuscular Volume 91 fL (80-94); Mean Platelet Volume 6.9 fL (7.4-10.4); Nucleated Red Blood Cells % 0; Platelet Count 376 10^3/ul (150-450); Red Cell Distribution Width 13 % (10.5-15); White Blood Count 14.7 10^3/ul (3.5-10.8)
[2018-07-23 07:11] LABS: Albumin 2.7 g/dL (3.2-5.2); Albumin/Globulin Ratio 0.9 (1-3); BUN/Creatinine Ratio 13.8 (8-20); EGFR Non-African American 122.9 (>60); Globulin 3.1 g/dL (2-4); Potassium 3.9 mmol/L (3.5-5.0); Total Bilirubin 0.5 mg/dL (0.2-1.0); Total Protein 5.8 g/dL (6.4-8.9)
[2018-07-23] MEDS: guaiFENesin ER TAB 600 MG PO SCH ×2 (09:26→21:05)
[2018-07-23] MEDS: Aspirin TAB* 325 MG PO SCH (09:26)
[2018-07-23] MEDS: Carvedilol TAB* 6.25 MG PO SCH ×2 (09:26→21:04)
[2018-07-23] MEDS: NS 0.9% 1000 ML* 1,000 ML IV SCH (09:32)
--- NOTE | 2018-07-23 13:14 | PN ---
Subjective Date of Service: 07/23/18 Interval History: Pt has b/l CAP and AF. He states that he is still feeling unwell. He states that, for the last 4 days, he has had intermittent abdominal pain. Pain intermittent and is located in the LLQ; it is worsened with coughing and he thinks it is made better with Tylenol. He rates the pain as 4/10 and describes it as sharp. Pt denies nausea, vomiting, diarrhea. Pt reports regular BMs, the last one being 0230 this morning. Pt remained on Cardizem throughout the night for continued AF with RVR, which broke in the night. He remains irregular, but in sinus rhythm with a regular rate. Telemetry analyzed, and P waves were noted. Objective Active Medications: Acetaminophen (Tylenol Tab*) 650 mg PO Q6H PRN PRN Reason: fever/discomfort Last Admin: 07/23/18 12:07 Dose: 650 mg Al Hydrox/Mg Hydrox/Simethicone (Maalox Plus*) 30 ml PO Q4H PRN PRN Reason: stomach Last Admin: 07/23/18 10:11 Dose: 30 ml Albuterol (Ventolin Hfa Inhaler*) 2 puff INH Q4H PRN PRN Reason: SOB/WHEEZING Aspirin (Aspirin Tab*) 325 mg PO DAILY [facility] Last Admin: 07/23/18 09:26 Dose: 325 mg Carvedilol (Coreg Tab*) 6.25 mg PO BID [facility] Last Admin: 07/23/18 09:26 Dose: 6.25 mg Guaifenesin (Mucinex*) 600 mg PO BID [facility] Last Admin: 07/23/18 09:26 Dose: 600 mg Heparin Sodium (Porcine) (Heparin Vial(*)) 5,000 units SUBCUT Q8HR [facility] Last Admin: 07/23/18 05:13 Dose: 5,000 units Piperacillin Sod/Tazobactam (Sod 3.375 gm/ Sodium Chloride) 100 mls @ 25 mls/ hr IVPB 0030,0830,1630 [facility] Last Admin: 07/23/18 09:26 Dose: 25 mls/hr Diltiazem HCl 125 mg/ Sodium (Chloride) 125 mls @ 5 mls/hr IV Q24H [facility]; Protocol Last Admin: 07/22/18 16:02 Dose: 5 mls/hr Sodium Chloride (Ns 0.9% 1000 Ml*) 1,000 mls @ 100 mls/hr IV PER RATE [facility] Last Admin: 07/23/18 09:32 Dose: 100 mls/hr Pharmacy Consult (Zosyn Per Pharmacy*) 1 note FOLLOW UP .ZOSYN PER PHARMACY [facility] Vital Signs - 8 hr 07/23/18 07/23/18 07/23/18 05:21 05:45 07:21 Temperature Pulse Rate Blood Pressure 107/69 114/61 128/60 (mmHg) O2 Sat by Pulse Oximetry 07/23/18 08:38 Temperature 99.3 F Pulse Rate 59 Blood Pressure (mmHg) O2 Sat by Pulse 93 Oximetry Oxygen Devices in Use Now: None Eyes: No Scleral Icterus, PERRLA Ears/Nose/Mouth/Throat: NL Teeth, Lips, Gums Neck: Trachea Midline Respiratory: - - Breath sounds diffusely decreased in L lung; rales in RLL. Cardiovascular: NL Sounds; No Murmurs; No JVD, No Edema, - - Rate is controlled ; irregular sinus rhythm with P waves noted on telemetry Abdominal: - - BS in all 4 quadrants. Abdomen is soft, except for LLQ mass noted on palpation. Abdomen is TTP at R and LLQ. Extremities: No Edema Neurological: Alert and Oriented x 3 Result Diagrams: 07/23/18 06:38 07/23/18 06:38 Additional Lab and Data: Lab Results 07/21/18 07/21/18 Range/Units 08:23 08:29 WBC 17.1 H (3.5-10.8) 10^3/ul RBC 3.75 L (4.00-5.40) 10^6/ul Hgb 11.7 L (14.0-18.0) g/dl Hct 34 L (42-52) % MCV 91 (80-94) fL MCH 31 (27-31) pg MCHC 34 (31-36) g/dl RDW 13 (10.5-15) % Plt Count 347 (150-450) 10^3/ul MPV 6.9 L (7.4-10.4) fL Neut % (Auto) 89.3 % Lymph % (Auto) 3.0 % [place] % (Auto) 7.4 % Eos % (Auto) 0.1 % Baso % (Auto) 0.2 % Absolute Neuts (auto) 15.2 H (1.5-7.7) 10^3/ul Absolute Lymphs (auto) 0.5 L (1.0-4.8) 10^3/ul Absolute Monos (auto) 1.3 H (0-0.8) 10^3/ul Absolute Eos (auto) 0 (0-0.6) 10^3/ul Absolute Basos (auto) 0 (0-0.2) 10^3/ul Absolute Nucleated RBC 0 10^3/ul Nucleated RBC % 0 Influenza A (Rapid) Negative (Negative) Influenza B (Rapid) Negative (Negative) Microbiology and Other Data: Microbiology 07/21/18 08:23 Aerobic Blood Culture - Preliminary Blood Venous No Growth Day 1 Anaerobic Blood Culture - Preliminary No Growth Day 1 07/21/18 08:23 Aerobic Blood Culture - Preliminary Blood Venous No Growth Day 1 Anaerobic Blood Culture - Preliminary No Growth Day 1 07/21/18 11:56 Legionella Urinary Antigen - Final Urine Negative Legionella Antigen Streptococcus pneumoniae Ag Screen - Final Negative S. pneumo Antigen 07/21/18 14:00 Nasal Screen MRSA (PCR) - Final Nasal Mrsa Detected 07/21/18 11:56 Gram Stain - Final Sputum 07/21/18 08:13 Influenza Types A,B Antigen - Final Nasopharyngeal Specimen received for Influenza A/B Molecular testing Assess/Plan/Problems-Billing Assessment: This is a 67 year old male that presented to ED with 10 day complaint of fever, SOB, cough and chills, admitted for CAP/right pleural effusion. New complaint of LLQ abdominal pain x4days. - Patient Problems (1) Abdominal pain Code(s): R10.9 - UNSPECIFIED ABDOMINAL PAIN SNOMED Code(s): 53089756 Comment: -Abdominal x-ray ordered; will await results for further planning -Continue Tylenol as ordered prn pain (2) CAP (community acquired pneumonia) Code(s): J18.9 - PNEUMONIA, UNSPECIFIED ORGANISM SNOMED Code(s): 303732852 Comment: - Continue zosyn per pharmacy - Follow sputum and blood cultures NTD - Nebs, flutter valve (3) Pleural effusion, right Code(s): J90 - PLEURAL EFFUSION, NOT ELSEWHERE CLASSIFIED SNOMED Code(s): 29025086 Comment: - Continue supportive care (4) PAF (paroxysmal atrial fibrillation) Code(s): I48.0 - PAROXYSMAL ATRIAL FIBRILLATION SNOMED Code(s): 879207678 Comment: - RVR yesterday; converted while on cardizem drip - Continue maintenance IVF - BB continued - Cardizem IV d/c'd; cardizem 30mg PO ordered - Pt with irregular sinus rhythm and regular rate; continue BB, Cardizem - Patient on full dose ASA, has allergy to warfarin and was not recommended for NOAC as 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 Dispo TBD.
[2018-07-23] MEDS: Polyethylene Glycol 3350* 17 GM PACKET PO SCH (18:09)
[2018-07-24] MEDS: ZOSYN 3.375 GM Q8H per EXTENDED INFUSION IVPB SCH ×6 (00:19→16:55)
[2018-07-24] MEDS: Heparin VIAL(*) 5000 UNITS/ML VIAL (FIVE THOUSAND) SUBCUT SCH ×3 (05:00→20:53)
[2018-07-24] MEDS ORDERED: Diltiazem TAB* 30 MG PO SCH (09:00)
[2018-07-24] MEDS: guaiFENesin ER TAB 600 MG PO SCH ×2 (09:26→20:53)
[2018-07-24] MEDS: Aspirin TAB* 325 MG PO SCH (09:26)
[2018-07-24] MEDS: Polyethylene Glycol 3350* 17 GM PACKET PO SCH (09:27)
[2018-07-24] MEDS: Carvedilol TAB* 6.25 MG PO SCH ×2 (09:27→23:20)
[2018-07-24] MEDS: NS 0.9% 1000 ML* 1,000 ML IV SCH (09:34)
[2018-07-24] MEDS: Acetaminophen TAB* 325 MG PO PRN ×3 (09:34→23:22)
[2018-07-24] MEDS ORDERED: Diltiazem IV* 5 MG/ML 5 ML VIAL (for loading dose/IV Push) (25 MG) IV SLOW PU ONE (12:53)
[2018-07-24] MEDS ORDERED: Diltiazem IV VIAL* 125 MG in NS 0.9% 100 ML* 100 ML IV SCH (13:00)
[2018-07-24] MEDS ORDERED: Diltiazem CD CAP* 120 MG PO SCH (13:00)
[2018-07-24] MEDS ORDERED: Albuterol/Ipratropium NEB.SOL* Albuterol 2.5 MG/Ipratropium 0.5 MG 3 ML INH PRN (13:06)
[2018-07-24] MEDS: Al Hydrox/Mg Hydrox/Simet LIQ* 30 ML UDC PO PRN (14:01)
[2018-07-24 15:44] LABS: ABS Basophils 0.1 10^3/ul (0-0.2); ABS Eosinophils 0.1 10^3/ul (0-0.6); ABS Lymphocytes 1.1 10^3/ul (1.0-4.8); ABS Monocytes 0.8 10^3/ul (0-0.8); ABS Neutrophils 8.5 10^3/ul (1.5-7.7); ABS Nucleated RBC 0 10^3/ul; Eosinophil % 0.7 %; Hematocrit 34 % (42-52); Hemoglobin 11.4 g/dl (14.0-18.0); Lymphocyte % 10.5 %; Mean Corpuscular HGB Conc 34 g/dl (31-36); Mean Corpuscular Hemoglobin 31 pg (27-31); Mean Corpuscular Volume 91 fL (80-94); Mean Platelet Volume 6.5 fL (7.4-10.4); Nucleated Red Blood Cells % 0; Platelet Count 461 10^3/ul (150-450); Red Blood Count 3.66 10^6/ul (4.00-5.40); Red Cell Distribution Width 13 % (10.5-15); White Blood Count 10.6 10^3/ul (3.5-10.8)
--- NOTE | 2018-07-24 15:58 | PN ---
Subjective Date of Service: 07/24/18 Interval History: Patient seen and examined. States he feels "indigestion" this morning and palpitations. Periods of tachycardia noted on tele today. Per moniotr tech, alternating with bradycardia in the 30's which is non-sustained. Patient denies chills but feels hot and flushed, no n/v, tolerating PO, remains weak with productive cough. Objective Active Medications: Acetaminophen (Tylenol Tab*) 650 mg PO Q6H PRN PRN Reason: fever/discomfort Last Admin: 07/24/18 09:34 Dose: 650 mg Al Hydrox/Mg Hydrox/Simethicone (Maalox Plus*) 30 ml PO Q4H PRN PRN Reason: stomach Last Admin: 07/24/18 14:01 Dose: 30 ml Albuterol (Ventolin Hfa Inhaler*) 2 puff INH Q4H PRN PRN Reason: SOB/WHEEZING Albuterol/Ipratropium (Duoneb (Albuterol 2.5 Mg/Ipratropium 0.5 Mg)) 1 neb INH Q6H PRN PRN Reason: SOB/WHEEZING Aspirin (Aspirin Tab*) 325 mg PO DAILY [facility] Last Admin: 07/24/18 09:26 Dose: 325 mg Carvedilol (Coreg Tab*) 6.25 mg PO BID [facility] Last Admin: 07/24/18 09:27 Dose: 6.25 mg Guaifenesin (Mucinex*) 600 mg PO BID [facility] Last Admin: 07/24/18 09:26 Dose: 600 mg Heparin Sodium (Porcine) (Heparin Vial(*)) 5,000 units SUBCUT Q8HR [facility] Last Admin: 07/24/18 14:01 Dose: 5,000 units Piperacillin Sod/Tazobactam (Sod 3.375 gm/ Sodium Chloride) 100 mls @ 25 mls/ hr IVPB 0030,0830,1630 [facility] Last Admin: 07/24/18 09:24 Dose: 25 mls/hr Sodium Chloride (Ns 0.9% 1000 Ml*) 1,000 mls @ 100 mls/hr IV PER RATE [facility] Last Admin: 07/24/18 09:34 Dose: 100 mls/hr Diltiazem HCl 125 mg/ Sodium (Chloride) 125 mls @ 5 mls/hr IV Q24H [facility]; Protocol Last Admin: 07/24/18 14:07 Dose: 5 mls/hr Pharmacy Consult (Zosyn Per Pharmacy*) 1 note FOLLOW UP .ZOSYN PER PHARMACY [facility] Polyethylene Glycol/Electrolytes (Miralax*) 17 gm PO DAILY [facility] Last Admin: 07/24/18 09:27 Dose: 17 gm Vital Signs - 8 hr 07/24/18 07/24/18 07/24/18 08:00 08:03 13:10 Temperature 99.5 F 98.0 F Pulse Rate 60 Respiratory 20 20 Rate Blood Pressure 128/63 (mmHg) O2 Sat by Pulse 93 Oximetry 07/24/18 14:31 Temperature Pulse Rate Respiratory Rate Blood Pressure 98/70 (mmHg) O2 Sat by Pulse Oximetry Oxygen Devices in Use Now: None Appearance: alert, NAD Eyes: PERRLA Ears/Nose/Mouth/Throat: Mucous Membranes Moist Neck: NL Appearance and Movements; NL JVP, Trachea Midline Respiratory: Symmetrical Chest Expansion and Respiratory Effort, - - course breath sounds, rhonchi, no wheeze, poor aeration on right Cardiovascular: NL Sounds; No Murmurs; No JVD, No Edema Abdominal: NL Sounds; No Tenderness; No Distention Extremities: No Edema, No Clubbing, Cyanosis Skin: No Rash or Ulcers Neurological: Alert and Oriented x 3, - - general weakness Nutrition: Taking PO's Result Diagrams: 07/24/18 15:37 07/23/18 06:38 Additional Lab and Data: Lab Results 07/21/18 07/21/18 Range/Units 08:23 08:29 WBC 17.1 H (3.5-10.8) 10^3/ul RBC 3.75 L (4.00-5.40) 10^6/ul Hgb 11.7 L (14.0-18.0) g/dl Hct 34 L (42-52) % MCV 91 (80-94) fL MCH 31 (27-31) pg MCHC 34 (31-36) g/dl RDW 13 (10.5-15) % Plt Count 347 (150-450) 10^3/ul MPV 6.9 L (7.4-10.4) fL Neut % (Auto) 89.3 % Lymph % (Auto) 3.0 % Collier % (Auto) 7.4 % Eos % (Auto) 0.1 % Baso % (Auto) 0.2 % Absolute Neuts (auto) 15.2 H (1.5-7.7) 10^3/ul Absolute Lymphs (auto) 0.5 L (1.0-4.8) 10^3/ul Absolute Monos (auto) 1.3 H (0-0.8) 10^3/ul Absolute Eos (auto) 0 (0-0.6) 10^3/ul Absolute Basos (auto) 0 (0-0.2) 10^3/ul Absolute Nucleated RBC 0 10^3/ul Nucleated RBC % 0 Influenza A (Rapid) Negative (Negative) Influenza B (Rapid) Negative (Negative) Microbiology and Other Data: Microbiology 07/21/18 08:23 Aerobic Blood Culture - Preliminary Blood Venous No Growth Day 1 Anaerobic Blood Culture - Preliminary No Growth Day 1 07/21/18 08:23 Aerobic Blood Culture - Preliminary Blood Venous No Growth Day 1 Anaerobic Blood Culture - Preliminary No Growth Day 1 07/21/18 11:56 Legionella Urinary Antigen - Final Urine Negative Legionella Antigen Streptococcus pneumoniae Ag Screen - Final Negative S. pneumo Antigen 07/21/18 14:00 Nasal Screen MRSA (PCR) - Final Nasal Mrsa Detected 07/21/18 11:56 Gram Stain - Final Sputum 07/21/18 08:13 Influenza Types A,B Antigen - Final Nasopharyngeal Specimen received for Influenza A/B Molecular testing Diagnostic Imaging: Patient Name: DEWAYNE FLANAGAN Medical Record#: [id number] Ordering Physician: Aicha GABRIEL Acct.#: [id number] : 1950 Age: 67 Sex: M Location: EMERGENCY DEPARTMENT Exam Date: 07/21/18803 ADM Status: REG ER Order Information: CHEST PA & LAT 2 VWS Accession Number: [id number] CPT: 01698 INDICATION: Cough, fever, chills, generalized weakness. COMPARISON: No relevant prior exams available on the [facility] for comparison. TECHNIQUE: Sitting AP and lateral chest views. REPORT: Moderately large RIGHT subpulmonic pleural effusion with proportional partial atelectasis of the RIGHT lung. Mild patchy airspace consolidation within the residual aerated RIGHT lung and at the LEFT lung base. Negative for pneumothorax. Accounting for rightward rotation the heart, central pulmonary vasculature, and mediastinal contours are unremarkable. IMPRESSION: #. Moderately large subpulmonic RIGHT pleural effusion with proportional atelectasis. #. Probable bilateral inflammatory infiltrates/pneumonia. <Electronically signed by Anjum De Leon MD in [place]> 07/21/18944 Dictated By: Anjum De Leon MD Dictated Date/Time: 07/21/18944 Transcribed Date/Time: 07/21/18 0942 Copy to: Patient Name: DEWAYNE FLANAGAN Medical Record#: [id number] Ordering Physician: Tanna GABRIEL Acct.#: [id number] : 1950 Age: 67 Sex: M Location: [address] [place] [address] MEDICAL/TELEMETRY Exam Date: 07/23/18 1307 ADM Status: ADM IN Order Information: ABDOMEN (COMPLETE) 2 S Accession Number: [id number] CPT: 12298 INDICATION: Left lower quadrant abdominal pain. COMPARISON: There are no relevant prior studies available for comparison. TECHNIQUE: Supine and decubitus views of the abdomen were obtained. FINDINGS: There is mild gaseous distention of the small bowel. Air is also seen within the colon which is nondistended. There are few scattered air-fluid levels. No free intraperitoneal air is seen. There is a moderate amount retained stool present. 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 IMPRESSION: NONSPECIFIC GAS PATTERN CONSIDER FOLLOW-UP. <Electronically signed by Olayinka Naylor MD in [place]> 07/23/18 163 Dictated By: Olayinka Naylor MD Dictated Date/Time: 07/23/18 163 Transcribed Date/Time: 07/23/18 1630 Copy to: Assess/Plan/Problems-Billing Assessment: This is a 67 year old male that presented to ED with 10 day complaint of fever, SOB, cough and chills, admitted for CAP/right pleural effusion. New complaint of LLQ abdominal pain x4days and periods of bradycardia overnight. - Patient Problems (1) CAP (community acquired pneumonia) Code(s): J18.9 - PNEUMONIA, UNSPECIFIED ORGANISM SNOMED Code(s): 168130519 Comment: - Continue zosyn per pharmacy - sputum and blood cultures from 07/21 NTD - Nebs, flutter valve, pulmonary toilet - Reculture today, patient having fevers overnight and irregular HR with hypotension (2) Pleural effusion, right Code(s): J90 - PLEURAL EFFUSION, NOT ELSEWHERE CLASSIFIED SNOMED Code(s): 18127239 Comment: - No indication for tap as per pulmonology - Continue supportive care (3) PAF (paroxysmal atrial fibrillation) Code(s): I48.0 - PAROXYSMAL ATRIAL FIBRILLATION SNOMED Code(s): 953718279 Comment: - RVR that converted while on cardizem drip yesterday, was tolerating oral cardizem but having bouts of RVR again today alternating with bradycardia - May be SSS, however with acute infection, PM insertion would be contraindicated - Cardizem drip restarted today, however patient had 2 episodes of symptomatic bradycardia last 15-30 seconds with slurred speech but no syncope and were self- limited - Pacer pads placed, cardizem drip discontinued 2/2 hypotension and bradycardia - Follow labs, trops and continue tele - Patient on full dose ASA, allergy to warfarin and was never initiated on NOAC (4) History of CHF (congestive heart failure) Code(s): Z86.79 - PERSONAL HISTORY OF OTHER DISEASES OF THE CIRCULATORY SYSTEM SNOMED Code(s): 422513478 Comment: - Continue BB - Pt continues to be euvolemic - I&Os (5) DVT prophylaxis Code(s): ASP0688 - SNOMED Code(s): 110484631 Comment: - heparin SQ (6) Full code status Code(s): Z78.9 - OTHER SPECIFIED HEALTH STATUS SNOMED Code(s): 821004279 Status and Disposition: Inpatient, remains guarded. Dispo TBD.
[2018-07-24 16:01] LABS: Albumin 2.6 g/dL (3.2-5.2); Albumin/Globulin Ratio 0.8 (1-3); BUN/Creatinine Ratio 14.3 (8-20); Calcium 8.8 mg/dL (8.6-10.3); EGFR Non-African American 112.8 (>60); Globulin 3.4 g/dL (2-4); Magnesium 2.2 mg/dL (1.9-2.7); Total Bilirubin 0.3 mg/dL (0.2-1.0)
[2018-07-25] MEDS: NS 0.9% 1000 ML* 1,000 ML IV SCH ×2 (00:02→16:21)
[2018-07-25] MEDS: ZOSYN 3.375 GM Q8H per EXTENDED INFUSION IVPB SCH ×2 (00:03)
--- NOTE | 2018-07-25 03:08 | PN ---
Hospitalist Progress Note Date of Service: 07/25/18 got calls regarding his b/p pt came in with abd pain. his sbp has been around 180s despite hydralazine 5 mg twice ivp. clonipine was given. pt is on arb despite of allergy to warfarin.
[2018-07-25] MEDS: Acetaminophen TAB* 325 MG PO PRN ×3 (04:23→21:22)
[2018-07-25] MEDS: Heparin VIAL(*) 5000 UNITS/ML VIAL (FIVE THOUSAND) SUBCUT SCH ×3 (05:46→21:22)
[2018-07-25] MEDS: Polyethylene Glycol 3350* 17 GM PACKET PO SCH (08:31)
[2018-07-25] MEDS: cefTRIAXone(*) 1 GM in NS 0.9% 50 ML* 50 ML IVPB SCH (08:31)
[2018-07-25] MEDS: Al Hydrox/Mg Hydrox/Simet LIQ* 30 ML UDC PO PRN ×2 (08:31→15:12)
[2018-07-25] MEDS: Aspirin TAB* 325 MG PO SCH (08:31)
[2018-07-25] MEDS: guaiFENesin ER TAB 600 MG PO SCH ×2 (08:32→19:45)
[2018-07-25] MEDS: Carvedilol TAB* 6.25 MG PO SCH ×2 (08:32→19:44)
[2018-07-25] MEDS ORDERED: Digoxin IV* 0.5 MG/2 ML AMP (0.25 MG/ML) IV SLOW PU ONE ×2 (08:55→15:17)
[2018-07-25] MEDS: Azithromycin IV(*) 500 MG in NS 0.9% 250 ML* 250 ML IVPB SCH (09:41)
--- NOTE | 2018-07-25 15:04 | PN ---
Subjective Date of Service: 07/25/18 Interval History: HOSPITALIST PROGRESS NOTE Patient seen and examined at bedside. Care reviewed and d/w Terence Higgins RN. He offers no new complaints today. Dyspnea is unchanged, cough still present, but with less sputum. Family History: Unchanged from Admission Social History: Unchanged from Admission Past Medical History: Unchanged from Admission Objective Active Medications: Acetaminophen (Tylenol Tab*) 650 mg PO Q6H PRN PRN Reason: fever/discomfort Last Admin: 07/25/18 04:23 Dose: 650 mg Al Hydrox/Mg Hydrox/Simethicone (Maalox Plus*) 30 ml PO Q4H PRN PRN Reason: stomach Last Admin: 07/25/18 08:31 Dose: 30 ml Albuterol (Ventolin Hfa Inhaler*) 2 puff INH Q4H PRN PRN Reason: SOB/WHEEZING Albuterol/Ipratropium (Duoneb (Albuterol 2.5 Mg/Ipratropium 0.5 Mg)) 1 neb INH Q6H PRN PRN Reason: SOB/WHEEZING Aspirin (Aspirin Tab*) 325 mg PO DAILY [facility] Last Admin: 07/25/18 08:31 Dose: 325 mg Carvedilol (Coreg Tab*) 6.25 mg PO BID [facility] Last Admin: 07/25/18 08:32 Dose: 6.25 mg Guaifenesin (Mucinex*) 600 mg PO BID [facility] Last Admin: 07/25/18 08:32 Dose: 600 mg Heparin Sodium (Porcine) (Heparin Vial(*)) 5,000 units SUBCUT Q8HR [facility] Last Admin: 07/25/18 05:46 Dose: 5,000 units Sodium Chloride (Ns 0.9% 1000 Ml*) 1,000 mls @ 100 mls/hr IV PER RATE [facility] Last Admin: 07/25/18 00:02 Dose: 100 mls/hr Ceftriaxone Sodium 1 gm/ (Sodium Chloride) 50 mls @ 200 mls/hr IVPB Q24H [facility] Last Admin: 07/25/18 08:31 Dose: 200 mls/hr Azithromycin 500 mg/ Sodium (Chloride) 250 mls @ 250 mls/hr IVPB Q24H [facility] Last Admin: 07/25/18 09:41 Dose: 250 mls/hr Pharmacy Consult (Zosyn Per Pharmacy*) 1 note FOLLOW UP .ZOSYN PER PHARMACY [facility] Polyethylene Glycol/Electrolytes (Miralax*) 17 gm PO DAILY [facility] Last Admin: 07/25/18 08:31 Dose: 17 gm Vital Signs - 8 hr 07/25/18 07/25/18 07/25/18 07:25 07:57 08:00 Temperature 97.5 F Pulse Rate 122 Respiratory 22 22 Rate Blood Pressure 100/86 (mmHg) O2 Sat by Pulse 93 Oximetry 07/25/18 07/25/18 07/25/18 08:26 08:35 09:25 Temperature Pulse Rate Respiratory 32 Rate Blood Pressure 113/71 99/68 (mmHg) O2 Sat by Pulse Oximetry 07/25/18 07/25/18 07/25/18 09:41 10:22 12:23 Temperature 98.4 F Pulse Rate 100 96 Respiratory 24 18 Rate Blood Pressure 100/70 (mmHg) O2 Sat by Pulse 94 92 Oximetry Oxygen Devices in Use Now: None Appearance: Elderly gentleman sitting up in bed in NAD. Eyes: No Scleral Icterus Ears/Nose/Mouth/Throat: Mucous Membranes Moist Neck: Trachea Midline Respiratory: Symmetrical Chest Expansion and Respiratory Effort, - - BS+ bilaterally diminished right base Cardiovascular: - - Normal S1 and S2, irregulary irregular Neurological: Alert and Oriented x 3, NL Muscle Strength and Tone Result Diagrams: 07/24/18 15:37 07/24/18 15:37 Microbiology and Other Data: Microbiology 07/21/18 08:23 Aerobic Blood Culture - Preliminary Blood Venous No Growth Day 1 Anaerobic Blood Culture - Preliminary No Growth Day 1 07/21/18 08:23 Aerobic Blood Culture - Preliminary Blood Venous No Growth Day 1 Anaerobic Blood Culture - Preliminary No Growth Day 1 07/21/18 11:56 Legionella Urinary Antigen - Final Urine Negative Legionella Antigen Streptococcus pneumoniae Ag Screen - Final Negative S. pneumo Antigen 07/21/18 14:00 Nasal Screen MRSA (PCR) - Final Nasal Mrsa Detected 07/21/18 11:56 Gram Stain - Final Sputum 07/21/18 08:13 Influenza Types A,B Antigen - Final Nasopharyngeal Specimen received for Influenza A/B Molecular testing Assess/Plan/Problems-Billing Assessment: This is a 67 year old male that presented to ED with 10 day complaint of fever, SOB, cough and chills, admitted for CAP/right pleural effusion. New complaint of LLQ abdominal pain x4days and periods of bradycardia overnight. - Patient Problems (1) CAP (community acquired pneumonia) Comment: - D/c Zosyn and start Ceftriaxone/Zithromax. - Legionella and pneumococcal Ags are negative and cultures show no growth. (2) PAF (paroxysmal atrial fibrillation) Comment: - Had symptomatic bradycardia with Cardizem. - Will give digoxin and monitor. - On full dose Aspirin as he is allergic to Warfarin and was told by his previous Cardiology in [place] he would not be a good candidate for NOAC. - [id number] is 2 - will obtain records from PCP before starting any NOAC. (3) Diastolic CHF Comment: - Stable. - Continue Coreg. (4) DVT prophylaxis Comment: - SQ heparin. (5) Full code status Status and Disposition: Inpatient.
[2018-07-26] MEDS: NS 0.9% 1000 ML* 1,000 ML IV SCH (02:27)
[2018-07-26] MEDS: Heparin VIAL(*) 5000 UNITS/ML VIAL (FIVE THOUSAND) SUBCUT SCH ×3 (05:43→20:58)
[2018-07-26 08:02] LABS: ABS Basophils 0 10^3/ul (0-0.2); ABS Eosinophils 0.1 10^3/ul (0-0.6); ABS Lymphocytes 0.9 10^3/ul (1.0-4.8); ABS Monocytes 0.5 10^3/ul (0-0.8); ABS Neutrophils 7.1 10^3/ul (1.5-7.7); ABS Nucleated RBC 0 10^3/ul; Eosinophil % 1.1 %; Hematocrit 35 % (42-52); Hemoglobin 11.9 g/dl (14.0-18.0); Lymphocyte % 10.9 %; Mean Corpuscular HGB Conc 34 g/dl (31-36); Mean Corpuscular Hemoglobin 31 pg (27-31); Mean Corpuscular Volume 92 fL (80-94); Mean Platelet Volume 6.7 fL (7.4-10.4); Nucleated Red Blood Cells % 0; Platelet Count 508 10^3/ul (150-450); Red Blood Count 3.82 10^6/ul (4.00-5.40); Red Cell Distribution Width 13 % (10.5-15); White Blood Count 8.6 10^3/ul (3.5-10.8)
[2018-07-26] MEDS: cefTRIAXone(*) 1 GM in NS 0.9% 50 ML* 50 ML IVPB SCH (08:12)
[2018-07-26] MEDS: Polyethylene Glycol 3350* 17 GM PACKET PO SCH (08:18)
[2018-07-26] MEDS: Digoxin TAB* 0.125 MG PO SCH (08:18)
[2018-07-26] MEDS: Aspirin TAB* 325 MG PO SCH (08:18)
[2018-07-26 08:19] LABS: BUN/Creatinine Ratio 13.4 (8-20); C Reactive Protein 91.62 mg/L (<8.01); Calcium 8.8 mg/dL (8.6-10.3); EGFR Non-African American 118.7 (>60); Potassium 4.4 mmol/L (3.5-5.0)
[2018-07-26] MEDS: guaiFENesin ER TAB 600 MG PO SCH ×2 (08:19→20:58)
[2018-07-26] MEDS: Carvedilol TAB* 6.25 MG PO SCH ×2 (08:19→20:58)
[2018-07-26] MEDS: Acetaminophen TAB* 325 MG PO PRN ×3 (08:22→21:03)
[2018-07-26 08:32] LABS: Digoxin 0.3 ng/ml (0.8-2.0)
[2018-07-26] MEDS: Azithromycin IV(*) 500 MG in NS 0.9% 250 ML* 250 ML IVPB SCH (09:30)
--- NOTE | 2018-07-26 13:34 | PN ---
Subjective Date of Service: 07/26/18 Interval History: HOSPITALIST PROGRESS NOTE Patient seen and examined at bedside. Care reviewed and d/w Mary Ruiz RN. He offers no new complaints. Dyspnea is a little improved, still has productive cough with yellowish sputum. Denies chest pain. Has palpitations with exertion. Family History: Unchanged from Admission Social History: Unchanged from Admission Past Medical History: Unchanged from Admission Objective Active Medications: Acetaminophen (Tylenol Tab*) 650 mg PO Q6H PRN PRN Reason: fever/discomfort Last Admin: 07/26/18 08:22 Dose: 650 mg Al Hydrox/Mg Hydrox/Simethicone (Maalox Plus*) 30 ml PO Q4H PRN PRN Reason: stomach Last Admin: 07/25/18 15:12 Dose: 30 ml Albuterol (Ventolin Hfa Inhaler*) 2 puff INH Q4H PRN PRN Reason: SOB/WHEEZING Albuterol/Ipratropium (Duoneb (Albuterol 2.5 Mg/Ipratropium 0.5 Mg)) 1 neb INH Q6H PRN PRN Reason: SOB/WHEEZING Aspirin (Aspirin Tab*) 325 mg PO DAILY [facility] Last Admin: 07/26/18 08:18 Dose: 325 mg Carvedilol (Coreg Tab*) 6.25 mg PO BID [facility] Last Admin: 07/26/18 08:19 Dose: 6.25 mg Digoxin (Lanoxin Tab*) 0.125 mg PO 0900 [facility] Last Admin: 07/26/18 08:18 Dose: 0.125 mg Guaifenesin (Mucinex*) 600 mg PO BID [facility] Last Admin: 07/26/18 08:19 Dose: 600 mg Heparin Sodium (Porcine) (Heparin Vial(*)) 5,000 units SUBCUT Q8HR [facility] Last Admin: 07/26/18 05:43 Dose: 5,000 units Ceftriaxone Sodium 1 gm/ (Sodium Chloride) 50 mls @ 200 mls/hr IVPB Q24H [facility] Last Admin: 07/26/18 08:12 Dose: 200 mls/hr Azithromycin 500 mg/ Sodium (Chloride) 250 mls @ 250 mls/hr IVPB Q24H [facility] Last Admin: 07/26/18 09:30 Dose: 250 mls/hr Pharmacy Consult (Zosyn Per Pharmacy*) 1 note FOLLOW UP .ZOSYN PER PHARMACY [facility] Polyethylene Glycol/Electrolytes (Miralax*) 17 gm PO DAILY [facility] Last Admin: 07/26/18 08:18 Dose: 17 gm Vital Signs - 8 hr 07/26/18 07/26/18 07/26/18 07:31 08:00 08:18 Temperature 98.4 F Pulse Rate 94 94 Respiratory 24 24 Rate Blood Pressure 114/59 (mmHg) O2 Sat by Pulse 96 Oximetry Oxygen Devices in Use Now: None Appearance: Elderly gentleman sitting up in bed in NAD. Eyes: No Scleral Icterus Ears/Nose/Mouth/Throat: Mucous Membranes Moist Neck: Trachea Midline Respiratory: Symmetrical Chest Expansion and Respiratory Effort, - - BS+ bilaterally coarse, diminished in right base Cardiovascular: - - Normal S1 and S2, irregularly irregular Neurological: Alert and Oriented x 3, NL Muscle Strength and Tone Result Diagrams: 07/26/18 07:50 07/26/18 07:50 Assess/Plan/Problems-Billing Assessment: This is a 67 year old male that presented to ED with 10 day complaint of fever, SOB, cough and chills, admitted for CAP/right pleural effusion. New complaint of LLQ abdominal pain x4days and periods of bradycardia overnight. - Patient Problems (1) CAP (community acquired pneumonia) Comment: - Continue Ceftriaxone/Zithromax. - Legionella and pneumococcal Ags are negative and cultures show no growth. (2) PAF (paroxysmal atrial fibrillation) Comment: - Had symptomatic bradycardia with Cardizem. - Will give digoxin and monitor. - On full dose Aspirin as he is allergic to Warfarin and was told by his previous Cardiology in [place] he would not be a good candidate for NOAC. - [id number] is 2 - will obtain records from [place] before starting any NOAC. (3) Diastolic CHF Comment: - Stable. - Continue Coreg. (4) DVT prophylaxis Comment: - SQ heparin. (5) Full code status Status and Disposition: Inpatient.
[2018-07-26] MEDS: Al Hydrox/Mg Hydrox/Simet LIQ* 30 ML UDC PO PRN (20:58)
[2018-07-27] MEDS: Heparin VIAL(*) 5000 UNITS/ML VIAL (FIVE THOUSAND) SUBCUT SCH (05:57)
[2018-07-27] MEDS: Acetaminophen TAB* 325 MG PO PRN ×2 (06:01→20:37)
[2018-07-27] MEDS: cefTRIAXone(*) 1 GM in NS 0.9% 50 ML* 50 ML IVPB SCH (09:38)
[2018-07-27] MEDS: Aspirin TAB* 325 MG PO SCH (09:39)
[2018-07-27] MEDS: Polyethylene Glycol 3350* 17 GM PACKET PO SCH (09:39)
[2018-07-27] MEDS: guaiFENesin ER TAB 600 MG PO SCH ×2 (09:39→20:36)
[2018-07-27] MEDS: Digoxin TAB* 0.125 MG PO SCH (09:39)
[2018-07-27] MEDS: Carvedilol TAB* 6.25 MG PO SCH (09:40)
[2018-07-27] MEDS: Azithromycin IV(*) 500 MG in NS 0.9% 250 ML* 250 ML IVPB SCH (10:07)
[2018-07-27] MEDS ORDERED: Carvedilol TAB* 25 MG PO ONE (10:34)
--- NOTE | 2018-07-27 10:49 | PN ---
Subjective Date of Service: 07/27/18 Interval History: HOSPITALIST PROGRESS NOTE Patient seen and examined at bedside. Care reviewed and d/w Allison Ruiz RN. He feels a little better today, with less dyspnea and cough. Denies chest pain, still has tachycardia with exertion. Family History: Unchanged from Admission Social History: Unchanged from Admission Past Medical History: Unchanged from Admission Objective Active Medications: Acetaminophen (Tylenol Tab*) 650 mg PO Q6H PRN PRN Reason: fever/discomfort Last Admin: 07/27/18 06:01 Dose: 650 mg Al Hydrox/Mg Hydrox/Simethicone (Maalox Plus*) 30 ml PO Q4H PRN PRN Reason: stomach Last Admin: 07/26/18 20:58 Dose: 30 ml Albuterol (Ventolin Hfa Inhaler*) 2 puff INH Q4H PRN PRN Reason: SOB/WHEEZING Albuterol/Ipratropium (Duoneb (Albuterol 2.5 Mg/Ipratropium 0.5 Mg)) 1 neb INH Q6H PRN PRN Reason: SOB/WHEEZING Aspirin (Aspirin Ec Tab*) 81 mg PO DAILY [facility] Carvedilol (Coreg Tab*) 25 mg PO BID [facility] Digoxin (Lanoxin Tab*) 0.125 mg PO 0900 [facility] Last Admin: 07/27/18 09:39 Dose: 0.125 mg Enoxaparin Sodium (Lovenox(*)) 110 mg SUBCUT Q12H [facility] Guaifenesin (Mucinex*) 600 mg PO BID [facility] Last Admin: 07/27/18 09:39 Dose: 600 mg Ceftriaxone Sodium 1 gm/ (Sodium Chloride) 50 mls @ 200 mls/hr IVPB Q24H [facility] Last Admin: 07/27/18 09:38 Dose: 200 mls/hr Doxycycline Hyclate 100 mg/ (Sodium Chloride) 250 mls @ 250 mls/hr IVPB Q12H [facility] Metoprolol Tartrate (Lopressor Iv*) 5 mg IV Q6H PRN PRN Reason: HR>120 Polyethylene Glycol/Electrolytes (Miralax*) 17 gm PO DAILY [facility] Last Admin: 07/27/18 09:39 Dose: 17 gm Vital Signs - 8 hr 07/27/18 07/27/18 03:44 09:39 Temperature 97.7 F Pulse Rate 96 127 Respiratory 16 Rate Blood Pressure 100/64 (mmHg) O2 Sat by Pulse 97 Oximetry Oxygen Devices in Use Now: None Appearance: Elderly gentleman sitting up in bed in NAD. Eyes: No Scleral Icterus Ears/Nose/Mouth/Throat: Mucous Membranes Moist Neck: Trachea Midline Respiratory: Symmetrical Chest Expansion and Respiratory Effort, - - BS+ bilaterally, diminished in right base Cardiovascular: - - Normal S1 and S2, irregularly irregular Abdominal: NL Sounds; No Tenderness; No Distention Neurological: Alert and Oriented x 3, NL Muscle Strength and Tone Result Diagrams: 07/26/18 07:50 07/26/18 07:50 Assess/Plan/Problems-Billing Assessment: This is a 67 year old male that presented to ED with 10 day complaint of fever, SOB, cough and chills, admitted for CAP/right pleural effusion. New complaint of LLQ abdominal pain x4days and periods of bradycardia overnight. - Patient Problems (1) CAP (community acquired pneumonia) Comment: - Continue Ceftriaxone. D/c Zithromax and add doxycycline. - Legionella and pneumococcal Ags are negative and cultures show no growth. (2) PAF (paroxysmal atrial fibrillation) Comment: - Had symptomatic bradycardia with Cardizem. - Continue digoxin, increase Carvedilol with holding parameters and monitor. - Records reviewed so far don't indicate any contraindication for anticoagulation - will start full dose Lovenox and change Aspirin to 81mg. Awaiting records from Cardiology. - [id number] is 2 - may be a candidate for NOAC. (3) Dysphagia Comment: - Patient was admitted to [facility] in 2010 with aspiration pneumonia/pneumothorax and empyema, secondary to dysphagia. 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 Will get records from his Neurologists in [place]. - Swallow evaluation. (4) Diastolic CHF Comment: - Stable. - Continue Coreg. (5) DVT prophylaxis Comment: - SQ heparin. (6) Full code status Status and Disposition: Inpatient.
[2018-07-27] MEDS: DOXYcycline IV* 100 MG in NS 0.9% 250 ML* 250 ML IVPB SCH ×2 (11:35→23:20)
[2018-07-27] MEDS: Enoxaparin(*) 150 MG/ML 1 ML SYRINGE SUBCUT SCH ×2 (11:45→23:23)
[2018-07-27] MEDS: Al Hydrox/Mg Hydrox/Simet LIQ* 30 ML UDC PO PRN (11:57)
[2018-07-27] MEDS: Carvedilol TAB* 25 MG PO SCH (20:37)
[2018-07-28] MEDS: Acetaminophen TAB* 325 MG PO PRN ×2 (06:06→19:31)
[2018-07-28] MEDS: Aspirin EC TAB* 81 MG TAB.EC PO SCH (08:52)
[2018-07-28] MEDS: guaiFENesin ER TAB 600 MG PO SCH ×2 (08:52→21:57)
[2018-07-28] MEDS: cefTRIAXone(*) 1 GM in NS 0.9% 50 ML* 50 ML IVPB SCH (08:52)
[2018-07-28] MEDS: Carvedilol TAB* 25 MG PO SCH ×2 (08:52→21:04)
[2018-07-28] MEDS: Polyethylene Glycol 3350* 17 GM PACKET PO SCH (08:52)
[2018-07-28] MEDS: Digoxin TAB* 0.125 MG PO SCH (08:52)
[2018-07-28] MEDS: DOXYcycline IV* 100 MG in NS 0.9% 250 ML* 250 ML IVPB SCH (11:53)
[2018-07-28] MEDS: Enoxaparin(*) 150 MG/ML 1 ML SYRINGE SUBCUT SCH ×2 (12:04→21:57)
[2018-07-28] MEDS: Al Hydrox/Mg Hydrox/Simet LIQ* 30 ML UDC PO PRN (12:31)
--- NOTE | 2018-07-28 16:36 | PN ---
Subjective Date of Service: 07/28/18 Interval History: HOSPITALIST PROGRESS NOTE Patient seen and examined at bedside. Care reviewed and d/w Terence Higgins RN. He feels better today. Dyspnea and cough are improved, but HR is still fast with exertion. Family History: Unchanged from Admission Social History: Unchanged from Admission Past Medical History: Unchanged from Admission Objective Active Medications: Acetaminophen (Tylenol Tab*) 650 mg PO Q6H PRN PRN Reason: fever/discomfort Last Admin: 07/28/18 06:06 Dose: 650 mg Al Hydrox/Mg Hydrox/Simethicone (Maalox Plus*) 30 ml PO Q4H PRN PRN Reason: stomach Last Admin: 07/28/18 12:31 Dose: 30 ml Albuterol (Ventolin Hfa Inhaler*) 2 puff INH Q4H PRN PRN Reason: SOB/WHEEZING Albuterol/Ipratropium (Duoneb (Albuterol 2.5 Mg/Ipratropium 0.5 Mg)) 1 neb INH Q6H PRN PRN Reason: SOB/WHEEZING Aspirin (Aspirin Ec Tab*) 81 mg PO DAILY [facility] Last Admin: 07/28/18 08:52 Dose: 81 mg Carvedilol (Coreg Tab*) 25 mg PO BID [facility] Last Admin: 07/28/18 08:52 Dose: 25 mg Digoxin (Lanoxin Tab*) 0.125 mg PO 0900 [facility] Last Admin: 07/28/18 08:52 Dose: 0.125 mg Enoxaparin Sodium (Lovenox(*)) 110 mg SUBCUT Q12H [facility] Last Admin: 07/28/18 12:04 Dose: 110 mg Guaifenesin (Mucinex*) 600 mg PO BID [facility] Last Admin: 07/28/18 08:52 Dose: 600 mg Ceftriaxone Sodium 1 gm/ (Sodium Chloride) 50 mls @ 200 mls/hr IVPB Q24H [facility] Last Admin: 07/28/18 08:52 Dose: 200 mls/hr Doxycycline Hyclate 100 mg/ (Sodium Chloride) 250 mls @ 250 mls/hr IVPB Q12H [facility] Last Admin: 07/28/18 11:53 Dose: 250 mls/hr Metoprolol Tartrate (Lopressor Iv*) 5 mg IV Q6H PRN PRN Reason: HR>120 Polyethylene Glycol/Electrolytes (Miralax*) 17 gm PO DAILY [facility] Last Admin: 07/28/18 08:52 Dose: 17 gm Vital Signs - 8 hr 07/28/18 07/28/18 07/28/18 08:52 11:28 15:29 Temperature 97.9 F 98.1 F Pulse Rate 100 92 42 Respiratory 20 16 Rate Blood Pressure 104/44 91/56 (mmHg) O2 Sat by Pulse 94 96 Oximetry Oxygen Devices in Use Now: None Appearance: Elderly gentleman sitting up in a chair in NAD Eyes: No Scleral Icterus Ears/Nose/Mouth/Throat: Mucous Membranes Moist Neck: Trachea Midline Respiratory: Symmetrical Chest Expansion and Respiratory Effort, - - BS+ bilaterally, diminished in right base, no added sounds Cardiovascular: - - Normal S1 and S2, irregularly irregular Neurological: Alert and Oriented x 3, NL Muscle Strength and Tone Result Diagrams: 07/26/18 07:50 07/26/18 07:50 Assess/Plan/Problems-Billing Assessment: This is a 67 year old male that presented to ED with 10 day complaint of fever, SOB, cough and chills, admitted for CAP/right pleural effusion. New complaint of LLQ abdominal pain x4days and periods of bradycardia overnight. - Patient Problems (1) CAP (community acquired pneumonia) Comment: - Continue doxycycline. - Legionella and pneumococcal Ags are negative and cultures show no growth. (2) PAF (paroxysmal atrial fibrillation) Comment: - Had symptomatic bradycardia with Cardizem. - Continue digoxin, Carvedilol increased to 25mg BID with holding parameters and monitor. - Records from [facility] in 2010 showed cardiac cath with EF 60% and normal coronary angiogram with dominant RCA, no MR and no . - Notes from Dr Higgins (as400 consultant) - 11/25 doesn't mention any Warfarin allergy. - Continue Lovenox and Aspirin 81mg. - [id number] is 2 - may be a candidate for NOAC on discharge. (3) Dysphagia Comment: - Patient was admitted to [facility] in 2010 with aspiration pneumonia/pneumothorax and empyema, secondary to dysphagia. 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 Will get records from his Neurologists in [place]. - Swallow evaluation appreciated - no abnormalities at this time. (4) Idiopathic progressive neuropathy Comment: - Records from Neurology reviewed - thought to have a possible mitochondrial disorder due to his ptosis, hearing loss, balding, macrocephaly, and moderately severe axonal neuropathy. There was also concern for myotonic distrophy, but EMG was negative. - Recommended creatine, CoQ10, riboflavin to help suspected mitochondrial condition. (5) Diastolic CHF Comment: - Stable. - Continue Coreg. (6) DVT prophylaxis Comment: - SQ heparin. (7) Full code status Status and Disposition: Inpatient. Will likely need KELLEN.
[2018-07-28] MEDS: Riboflavin (B2) (NF) 100 MG TAB PO SCH (21:40)
[2018-07-28] MEDS: DOXYcycline CAP(*) 100 MG PO SCH (21:57)
[2018-07-29] MEDS: Metoprolol Tartrate IV* 1 MG/ML 5 ML VIAL IV PRN ×2 (02:26→09:12)
--- NOTE | 2018-07-29 03:46 | PN ---
Progress Note - Progress Note Date of Service: 07/29/18 Note: patient feeling the urge to urinate but unable to - scan shows approx 600 mls. Will straight cath x 1
[2018-07-29 07:20] LABS: BUN/Creatinine Ratio 21.7 (8-20); Calcium 9.3 mg/dL (8.6-10.3); EGFR Non-African American 114.7 (>60); Potassium 4.2 mmol/L (3.5-5.0)
[2018-07-29 07:33] LABS: Digoxin 0.4 ng/ml (0.8-2.0)
[2018-07-29] MEDS: DOXYcycline CAP(*) 100 MG PO SCH ×2 (08:34→21:10)
[2018-07-29] MEDS: Carvedilol TAB* 25 MG PO SCH ×2 (08:34→21:10)
[2018-07-29] MEDS: Digoxin TAB* 0.125 MG PO SCH (08:34)
[2018-07-29] MEDS: Aspirin EC TAB* 81 MG TAB.EC PO SCH (08:34)
[2018-07-29] MEDS: guaiFENesin ER TAB 600 MG PO SCH ×2 (08:34→21:10)
[2018-07-29] MEDS: Polyethylene Glycol 3350* 17 GM PACKET PO SCH ×2 (08:34→09:30)
[2018-07-29] MEDS: Riboflavin (B2) (NF) 100 MG TAB PO SCH ×2 (08:35→21:08)
[2018-07-29] MEDS: Coenzyme Q10 (NF) ** ENTER STREGNTH IN LABEL DIRECTIONS PO SCH (08:35)
[2018-07-29] MEDS: Acetaminophen TAB* 325 MG PO PRN ×2 (09:12→17:55)
[2018-07-29] MEDS ORDERED: Carvedilol TAB* 6.25 MG PO ONE (10:00)
[2018-07-29] MEDS: Enoxaparin(*) 150 MG/ML 1 ML SYRINGE SUBCUT SCH ×2 (13:28→22:52)
[2018-07-29] MEDS ORDERED: NS 0.9% 500 ML* 500 ML IV ONE (15:17)
[2018-07-29] MEDS: Digoxin IV* 0.5 MG/2 ML AMP (0.25 MG/ML) IV SLOW PU SCH ×2 (16:24→22:33)
--- NOTE | 2018-07-29 16:32 | PN ---
Subjective Date of Service: 07/29/18 Interval History: Pt seen and examined. Meds and labs reviewed. CC: N/A ROS: Denied FAUST/dizziness, F/C, N/V, CP, SOB, increased cough, sputum production , abd pain, diarrhea, constipation, dysuria, myalgias, arthralgias, throat pain , and new skin lesions. The rest of the 14 point ROS are unremarkable. PHYSICAL EXAM: GEN APPEARANCE: Awake, not in acute distress HEENT: NC/AT, PERRLA, moist oral mucosa, (-) throat erythema NECK: Soft, supple, (-) cervical LAD, (-)JVD HEART: S1S2 WNL, irregularly irregular, No MRG CHEST: CTA, BL, GAE, No W/R/R ABD: Soft, ND/NT, NABS 4x Q EXT: No C/C/E SKIN: Warm to touch PSYCH: No active psychosis, hallucinations, depression, SI/HI Family History: Unchanged from Admission Social History: Unchanged from Admission Past Medical History: Unchanged from Admission Objective Active Medications: Acetaminophen (Tylenol Tab*) 650 mg PO Q6H PRN PRN Reason: fever/discomfort Last Admin: 07/29/18 09:12 Dose: 650 mg Al Hydrox/Mg Hydrox/Simethicone (Maalox Plus*) 30 ml PO Q4H PRN PRN Reason: stomach Last Admin: 07/28/18 12:31 Dose: 30 ml Albuterol (Ventolin Hfa Inhaler*) 2 puff INH Q4H PRN PRN Reason: SOB/WHEEZING Albuterol/Ipratropium (Duoneb (Albuterol 2.5 Mg/Ipratropium 0.5 Mg)) 1 neb INH Q6H PRN PRN Reason: SOB/WHEEZING Aspirin (Aspirin Ec Tab*) 81 mg PO DAILY [facility] Last Admin: 07/29/18 08:34 Dose: 81 mg Carvedilol (Coreg Tab*) 25 mg PO BID [facility] Coenzyme Q10 (Coenzyme Q10 (Nf)) 1 cap PO DAILY [facility] Last Admin: 07/29/18 08:35 Dose: Not Given Digoxin (Lanoxin Tab*) 0.125 mg PO 0900 [facility] Last Admin: 07/29/18 08:34 Dose: 0.125 mg Digoxin (Digoxin Iv*) 0.25 mg IV SLOW PU Q6H [facility] Stop: 07/29/18 22:01 Last Admin: 07/29/18 16:24 Dose: 0.25 mg Doxycycline Hyclate (Vibramycin Cap(*)) 100 mg PO BID [facility] Last Admin: 07/29/18 08:34 Dose: 100 mg Enoxaparin Sodium (Lovenox(*)) 110 mg SUBCUT Q12H [facility] Last Admin: 07/29/18 13:28 Dose: 110 mg Guaifenesin (Mucinex*) 600 mg PO BID [facility] Last Admin: 07/29/18 08:34 Dose: 600 mg Metoprolol Tartrate (Lopressor Iv*) 5 mg IV Q6H PRN PRN Reason: HR>120 Last Admin: 07/29/18 09:12 Dose: 5 mg Polyethylene Glycol/Electrolytes (Miralax*) 17 gm PO DAILY [facility] Last Admin: 07/29/18 09:30 Dose: Not Given Riboflavin (Vitamin B-2 (Nf)) 200 mg PO BID [facility] Last Admin: 07/29/18 08:35 Dose: Not Given Vital Signs - 8 hr 07/29/18 07/29/18 07/29/18 08:34 11:21 13:14 Temperature 97.3 F Pulse Rate 110 69 42 Respiratory 14 16 Rate Blood Pressure 84/52 95/62 (mmHg) O2 Sat by Pulse 95 97 Oximetry 07/29/18 07/29/18 07/29/18 14:18 14:19 15:30 Temperature 97.2 F Pulse Rate 93 Respiratory 16 Rate Blood Pressure 88/62 85/60 86/60 (mmHg) O2 Sat by Pulse 97 Oximetry 07/29/18 16:24 Temperature Pulse Rate 99 Respiratory Rate Blood Pressure (mmHg) O2 Sat by Pulse Oximetry Oxygen Devices in Use Now: None Result Diagrams: 07/26/18 07:50 07/29/18 06:39 Additional Lab and Data: Lab Results 07/21/18 07/21/18 Range/Units 08:23 08:29 WBC 17.1 H (3.5-10.8) 10^3/ul RBC 3.75 L (4.00-5.40) 10^6/ul Hgb 11.7 L (14.0-18.0) g/dl Hct 34 L (42-52) % MCV 91 (80-94) fL MCH 31 (27-31) pg MCHC 34 (31-36) g/dl RDW 13 (10.5-15) % Plt Count 347 (150-450) 10^3/ul MPV 6.9 L (7.4-10.4) fL Neut % (Auto) 89.3 % Lymph % (Auto) 3.0 % Isabela % (Auto) 7.4 % Eos % (Auto) 0.1 % Baso % (Auto) 0.2 % Absolute Neuts (auto) 15.2 H (1.5-7.7) 10^3/ul Absolute Lymphs (auto) 0.5 L (1.0-4.8) 10^3/ul Absolute Monos (auto) 1.3 H (0-0.8) 10^3/ul Absolute Eos (auto) 0 (0-0.6) 10^3/ul Absolute Basos (auto) 0 (0-0.2) 10^3/ul Absolute Nucleated RBC 0 10^3/ul Nucleated RBC % 0 Influenza A (Rapid) Negative (Negative) Influenza B (Rapid) Negative (Negative) Microbiology and Other Data: Microbiology 07/21/18 08:23 Aerobic Blood Culture - Preliminary Blood Venous No Growth Day 1 Anaerobic Blood Culture - Preliminary No Growth Day 1 07/21/18 08:23 Aerobic Blood Culture - Preliminary Blood Venous No Growth Day 1 Anaerobic Blood Culture - Preliminary No Growth Day 1 07/21/18 11:56 Legionella Urinary Antigen - Final Urine Negative Legionella Antigen Streptococcus pneumoniae Ag Screen - Final Negative S. pneumo Antigen 07/21/18 14:00 Nasal Screen MRSA (PCR) - Final Nasal Mrsa Detected 07/21/18 11:56 Gram Stain - Final Sputum 07/21/18 08:13 Influenza Types A,B Antigen - Final Nasopharyngeal Specimen received for Influenza A/B Molecular testing Diagnostic Imaging: Patient Name: DEWAYNE FLANAGAN Medical Record#: [id number] Ordering Physician: Aicha GABRIEL Acct.#: [id number] : 1950 Age: 67 Sex: M Location: EMERGENCY DEPARTMENT Exam Date: 07/21/18 0804 ADM Status: REG ER Order Information: CHEST PA & LAT 2 VWS Accession Number: [id number] CPT: 69991 INDICATION: Cough, fever, chills, generalized weakness. COMPARISON: No relevant prior exams available on the [facility] PACS for comparison. TECHNIQUE: Sitting AP and lateral chest views. REPORT: Moderately large RIGHT subpulmonic pleural effusion with proportional partial atelectasis of the RIGHT lung. Mild patchy airspace consolidation within the residual aerated RIGHT lung and at the LEFT lung base. Negative for pneumothorax. Accounting for rightward rotation the heart, central pulmonary vasculature, and mediastinal contours are unremarkable. IMPRESSION: #. Moderately large subpulmonic RIGHT pleural effusion with proportional atelectasis. #. Probable bilateral inflammatory infiltrates/pneumonia. <Electronically signed by Anjum De Leon MD in [place]> 07/21/18944 Dictated By: Anjum De Leon MD Dictated Date/Time: 07/21/18944 Transcribed Date/Time: 07/21/18941 Copy to: Patient Name: DEWAYNE FLANAGAN Medical Record#: [id number] Ordering Physician: Tanna GABRIEL Acct.#: [id number] : 1950 Age: 67 Sex: M Location: [address] [place] [address] MEDICAL/TELEMETRY Exam Date: 07/23/18 1307 ADM Status: ADM IN Order Information: ABDOMEN (COMPLETE) 2 [facility] Accession Number: [id number] CPT: 00855 INDICATION: Left lower quadrant abdominal pain. COMPARISON: There are no relevant prior studies available for comparison. TECHNIQUE: Supine and decubitus views of the abdomen were obtained. FINDINGS: There is mild gaseous distention of the small bowel. Air is also seen within the colon which is nondistended. There are few scattered air-fluid levels. No free intraperitoneal air is seen. There is a moderate amount retained stool present. 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 IMPRESSION: NONSPECIFIC GAS PATTERN CONSIDER FOLLOW-UP. <Electronically signed by Olayinka Naylor MD in [place]> 07/23/18 1633 Dictated By: Olayinka Naylor MD Dictated Date/Time: 07/23/18 1633 Transcribed Date/Time: 07/23/18 1630 Copy to: Assess/Plan/Problems-Billing Assessment: This is a 67 year old male that presented to ED with 10 day complaint of fever, SOB, cough and chills, admitted for CAP/right pleural effusion. New complaint of LLQ abdominal pain x4days and periods of bradycardia overnight. - Patient Problems (1) Hypotension Current Visit: Yes Status: Acute Comment: #Mild hypotension: -Increased carvedilol early in AM, unfortunately BP slightly decreased and was subsequently bloused -Digoxin at low levels and reviewed loading dose history with pharmacist---per pharmacist, pt received only total of 0.375 g of Digoxin -Will Give 0.25 gIV q6h X2 loading today and recheck levels in AM (2) CAP (community acquired pneumonia) Current Visit: Yes Status: Acute Code(s): J18.9 - PNEUMONIA, UNSPECIFIED ORGANISM SNOMED Code(s): 865858245 Comment: -Continue Doxycycline, abx 03/19 (3) PAF (paroxysmal atrial fibrillation) Current Visit: Yes Status: Acute Code(s): I48.0 - PAROXYSMAL ATRIAL FIBRILLATION SNOMED Code(s): 361316654 Comment: -Please see above discussion for changes in digoxin dose Records from [facility] in 2010 showed cardiac cath with EF 60% and normal coronary angiogram with dominant RCA, no MR and no . - Notes from Dr Higgins (deep well contractor) - 11/25 doesn't mention any Warfarin allergy. - Continue Lovenox and Aspirin 81mg. - [id number] is 2 - may be a candidate for NOAC on discharge. (4) Idiopathic progressive neuropathy Current Visit: Yes Status: Acute Code(s): G60.3 - IDIOPATHIC PROGRESSIVE NEUROPATHY SNOMED Code(s): 342646699 Comment: - Records from Neurology reviewed - thought to have a possible mitochondrial disorder due to his ptosis, hearing loss, balding, macrocephaly, and moderately severe axonal neuropathy. There was also concern for myotonic distrophy, but EMG was negative. - Recommended creatine, CoQ10, riboflavin to help suspected mitochondrial condition. (5) Diastolic CHF Current Visit: Yes Status: Acute Code(s): I50.30 - UNSPECIFIED DIASTOLIC ( CONGESTIVE) HEART FAILURE SNOMED Code(s): 922562295 Comment: - Stable. - Continue Coreg. (6) DVT prophylaxis Current Visit: Yes Status: Acute Code(s): IHV4634 - SNOMED Code(s): 952513487 Comment: - SQ heparin. Status and Disposition: Inpatient. Will likely need KELLEN.
[2018-07-29] MEDS ORDERED: Carvedilol TAB* 25 MG PO SCH (21:00)
[2018-07-30] MEDS: Acetaminophen TAB* 325 MG PO PRN ×4 (00:27→22:15)
[2018-07-30 06:58] LABS: ABS Basophils 0 10^3/ul (0-0.2); ABS Eosinophils 0.1 10^3/ul (0-0.6); ABS Lymphocytes 1.2 10^3/ul (1.0-4.8); ABS Monocytes 0.5 10^3/ul (0-0.8); ABS Neutrophils 5.7 10^3/ul (1.5-7.7); ABS Nucleated RBC 0 10^3/ul; Eosinophil % 1.7 %; Hematocrit 37 % (42-52); Hemoglobin 12.6 g/dl (14.0-18.0); Lymphocyte % 16.3 %; Mean Corpuscular HGB Conc 34 g/dl (31-36); Mean Corpuscular Hemoglobin 31 pg (27-31); Mean Corpuscular Volume 92 fL (80-94); Mean Platelet Volume 6.7 fL (7.4-10.4); Nucleated Red Blood Cells % 0; Platelet Count 487 10^3/ul (150-450); Red Blood Count 4.04 10^6/ul (4.00-5.40); Red Cell Distribution Width 13 % (10.5-15); White Blood Count 7.6 10^3/ul (3.5-10.8)
[2018-07-30 07:08] LABS: Albumin 2.8 g/dL (3.2-5.2); Albumin/Globulin Ratio 0.9 (1-3); BUN/Creatinine Ratio 21.9 (8-20); Calcium 9.3 mg/dL (8.6-10.3); EGFR Non-African American 125.1 (>60); Globulin 3.2 g/dL (2-4); Magnesium 2.2 mg/dL (1.9-2.7); Potassium 4.3 mmol/L (3.5-5.0); Total Bilirubin 0.3 mg/dL (0.2-1.0)
[2018-07-30 07:26] LABS: Digoxin 0.9 ng/ml (0.8-2.0)
[2018-07-30] MEDS: Digoxin TAB* 0.125 MG PO SCH (09:35)
[2018-07-30] MEDS: Aspirin EC TAB* 81 MG TAB.EC PO SCH (09:37)
[2018-07-30] MEDS: Polyethylene Glycol 3350* 17 GM PACKET PO SCH (09:37)
[2018-07-30] MEDS: guaiFENesin ER TAB 600 MG PO SCH ×2 (09:37→20:12)
[2018-07-30] MEDS: Carvedilol TAB* 25 MG PO SCH (09:37)
[2018-07-30] MEDS: Coenzyme Q10 (NF) ** ENTER STREGNTH IN LABEL DIRECTIONS PO SCH (09:37)
[2018-07-30] MEDS: DOXYcycline CAP(*) 100 MG PO SCH ×2 (09:37→20:12)
[2018-07-30] MEDS: Riboflavin (B2) (NF) 100 MG TAB PO SCH ×2 (09:38→20:13)
[2018-07-30] MEDS: Enoxaparin(*) 150 MG/ML 1 ML SYRINGE SUBCUT SCH ×2 (12:06→21:02)
[2018-07-30] MEDS ORDERED: NS 0.9% 500 ML* 500 ML IV ONE (12:42)
[2018-07-30] MEDS: NS 0.9% 1000 ML* 1,000 ML IV SCH (14:33)
--- NOTE | 2018-07-30 15:49 | PN ---
Progress Note - Progress Note Date of Service: 07/30/18 - Pulm f/u note Note: Pt seen and examined at bedside. Pt reports feeling better, pt reports improvement in SOB, still continues to have cough with white and thick phleghm though decreased in amounts from before Has been having lizbeth and tachycardia issue. Was noted to have hypotension and was started on IVF. Active Medications Generic Name Dose Route Start Last Admin Trade Name Freq PRN Reason Stop Dose Admin Acetaminophen 650 mg 07/21/18 13:03 07/30/18 15:29 Tylenol Tab* PO 650 mg Q6H PRN Administration fever/discomfort Al Hydrox/Mg Hydrox/Simethicone 30 ml 07/21/18 11:07 07/28/18 12:31 Maalox Plus* PO 30 ml Q4H PRN Administration stomach Albuterol 2 puff 07/21/18 12:31 Ventolin Hfa Inhaler* INH Q4H PRN SOB/WHEEZING Albuterol/Ipratropium 1 neb 07/24/18 13:06 Duoneb (Albuterol 2.5 Mg/Ipratropium 0.5 Mg) INH Q6H PRN SOB/WHEEZING Aspirin 81 mg 07/28/18 09:00 07/30/18 09:37 Aspirin Ec Tab* PO 81 mg DAILY [facility] Administration Carvedilol 25 mg 07/29/18 21:00 07/30/18 09:37 Coreg Tab* PO 25 mg BID [facility] Administration Coenzyme Q10 1 cap 07/29/18 09:00 07/30/18 09:37 Coenzyme Q10 (Nf) PO Not Given DAILY [facility] Digoxin 0.125 mg 07/26/18 08:00 07/30/18 09:35 Lanoxin Tab* PO 0.125 mg 0900 [facility] Administration Doxycycline Hyclate 100 mg 07/28/18 21:00 07/30/18 09:37 Vibramycin Cap(*) PO 100 mg BID [facility] Administration Enoxaparin Sodium 110 mg 07/27/18 11:00 07/30/18 12:06 Lovenox(*) SUBCUT 110 mg Q12H [facility] Administration Guaifenesin 600 mg 07/21/18 12:00 07/30/18 09:37 Mucinex* PO 600 mg BID [facility] Administration Sodium Chloride 1,000 mls @ 75 mls/hr 07/30/18 12:45 07/30/18 14:33 Ns 0.9% 1000 Ml* IV 75 mls/hr PER RATE [facility] Administration Metoprolol Tartrate 5 mg 07/27/18 10:35 07/29/18 09:12 Lopressor Iv* IV 5 mg Q6H PRN Administration HR>120 Polyethylene Glycol/Electrolytes 17 gm 07/23/18 18:00 07/30/18 09:37 Miralax* PO 17 gm DAILY [facility] Administration Riboflavin 200 mg 07/28/18 21:00 07/30/18 09:38 Vitamin B-2 (Nf) PO Not Given BID [facility] Vital Signs Temp Pulse Resp BP Pulse Ox 97.9 F 62 16 88/56 96 07/30/18 11:19 07/30/18 11:19 07/30/18 11:19 07/30/18 12:12 07/30/18 11:19 O/E: Pt in NAD HEENT: PERRLA, No JVD Lungs: Crackles at bases CVS: S1, S2+, regular Abd: Soft, BS+ Ext: Normal ROM Skin: No rash Laboratory Results - last 24 hr 07/30/18 07/30/18 06:42 06:42 WBC 7.6 RBC 4.04 Hgb 12.6 L Hct 37 L MCV 92 MCH 31 MCHC 34 RDW 13 Plt Count 487 H MPV 6.7 L Neut % (Auto) 75.1 Lymph % (Auto) 16.3 Crisp % (Auto) 6.4 Eos % (Auto) 1.7 Baso % (Auto) 0.5 Absolute Neuts (auto) 5.7 Absolute Lymphs (auto) 1.2 Absolute Monos (auto) 0.5 Absolute Eos (auto) 0.1 Absolute Basos (auto) 0 Absolute Nucleated RBC 0 Nucleated RBC % 0 Sodium 135 Potassium 4.3 Chloride 105 Carbon Dioxide 25 Anion Gap 5 BUN 14 Creatinine 0.64 L Est GFR ( Amer) 151.4 Est GFR (Non-Af Amer) 125.1 BUN/Creatinine Ratio 21.9 H Glucose 89 Calcium 9.3 Phosphorus 3.0 Magnesium 2.2 Total Bilirubin 0.30 AST 41 H ALT 70 H Alkaline Phosphatase 55 Total Protein 6.0 L Albumin 2.8 L Globulin 3.2 Albumin/Globulin Ratio 0.9 L Digoxin 0.9 I/R: 67 y o m with h/o mitochondrial disease/myopathy, CAD a/f management of PNA , CXR also showed concern with possible rt pl effusion, U/S at bedside didnot reveal any effusion Pt continues to have productive cough, improved from before He is not requiring O2 supplementation He is able to expectorate phleghm, would encourage him to use flutter device regularly Was noted to have paroxysmal A.fib Became hypotensive after betablocker dose was increased he is receiving IVF He was started on anticoagulation CT chest was reviewed and was discussed with pt- Basal consolidations and small effusions Stable from pulm perspective Discussed with bedside RN
--- NOTE | 2018-07-30 19:43 | PN ---
Subjective Date of Service: 07/30/18 Interval History: Pt seen and examined. Meds and labs reviewed. CC: N/A ROS: Denied FAUST/dizziness, F/C, N/V, CP, SOB, increased cough, sputum production , abd pain, diarrhea, constipation, dysuria, myalgias, arthralgias, throat pain , and new skin lesions. The rest of the 14 point ROS are unremarkable. PHYSICAL EXAM: GEN APPEARANCE: Awake, not in acute distress HEENT: NC/AT, PERRLA, moist oral mucosa, (-) throat erythema NECK: Soft, supple, (-) cervical LAD, (-)JVD HEART: S1S2 WNL, irregularly irregular, No MRG CHEST: CTA, BL, GAE, No W/R/R ABD: Soft, ND/NT, NABS 4x Q EXT: No C/C/E SKIN: Warm to touch PSYCH: No active psychosis, hallucinations, depression, SI/HI Family History: Unchanged from Admission Social History: Unchanged from Admission Past Medical History: Unchanged from Admission Objective Active Medications: Acetaminophen (Tylenol Tab*) 650 mg PO Q6H PRN PRN Reason: fever/discomfort Last Admin: 07/30/18 15:29 Dose: 650 mg Al Hydrox/Mg Hydrox/Simethicone (Maalox Plus*) 30 ml PO Q4H PRN PRN Reason: stomach Last Admin: 07/28/18 12:31 Dose: 30 ml Albuterol (Ventolin Hfa Inhaler*) 2 puff INH Q4H PRN PRN Reason: SOB/WHEEZING Albuterol/Ipratropium (Duoneb (Albuterol 2.5 Mg/Ipratropium 0.5 Mg)) 1 neb INH Q6H PRN PRN Reason: SOB/WHEEZING Aspirin (Aspirin Ec Tab*) 81 mg PO DAILY [facility] Last Admin: 07/30/18 09:37 Dose: 81 mg Carvedilol (Coreg Tab*) 6.25 mg PO BID [facility] Coenzyme Q10 (Coenzyme Q10 (Nf)) 1 cap PO DAILY [facility] Last Admin: 07/30/18 09:37 Dose: Not Given Digoxin (Lanoxin Tab*) 0.125 mg PO 0900 [facility] Last Admin: 07/30/18 09:35 Dose: 0.125 mg Doxycycline Hyclate (Vibramycin Cap(*)) 100 mg PO BID [facility] Last Admin: 07/30/18 09:37 Dose: 100 mg Enoxaparin Sodium (Lovenox(*)) 110 mg SUBCUT Q12H [facility] Last Admin: 07/30/18 12:06 Dose: 110 mg Guaifenesin (Mucinex*) 600 mg PO BID [facility] Last Admin: 07/30/18 09:37 Dose: 600 mg Sodium Chloride (Ns 0.9% 1000 Ml*) 1,000 mls @ 75 mls/hr IV PER RATE [facility] Last Admin: 07/30/18 14:33 Dose: 75 mls/hr Metoprolol Tartrate (Lopressor Iv*) 5 mg IV Q6H PRN PRN Reason: HR>120 Last Admin: 07/29/18 09:12 Dose: 5 mg Polyethylene Glycol/Electrolytes (Miralax*) 17 gm PO DAILY [facility] Last Admin: 07/30/18 09:37 Dose: 17 gm Riboflavin (Vitamin B-2 (Nf)) 200 mg PO BID [facility] Last Admin: 07/30/18 09:38 Dose: Not Given Vital Signs - 8 hr 07/30/18 07/30/18 12:12 15:48 Temperature 97.2 F Pulse Rate 74 Respiratory 14 Rate Blood Pressure 88/56 92/62 (mmHg) O2 Sat by Pulse 97 Oximetry Oxygen Devices in Use Now: None Result Diagrams: 07/30/18 06:42 07/30/18 06:42 Additional Lab and Data: Lab Results 07/21/18 07/21/18 Range/Units 08:23 08:29 WBC 17.1 H (3.5-10.8) 10^3/ul RBC 3.75 L (4.00-5.40) 10^6/ul Hgb 11.7 L (14.0-18.0) g/dl Hct 34 L (42-52) % MCV 91 (80-94) fL MCH 31 (27-31) pg MCHC 34 (31-36) g/dl RDW 13 (10.5-15) % Plt Count 347 (150-450) 10^3/ul MPV 6.9 L (7.4-10.4) fL Neut % (Auto) 89.3 % Lymph % (Auto) 3.0 % [place] % (Auto) 7.4 % Eos % (Auto) 0.1 % Baso % (Auto) 0.2 % Absolute Neuts (auto) 15.2 H (1.5-7.7) 10^3/ul Absolute Lymphs (auto) 0.5 L (1.0-4.8) 10^3/ul Absolute Monos (auto) 1.3 H (0-0.8) 10^3/ul Absolute Eos (auto) 0 (0-0.6) 10^3/ul Absolute Basos (auto) 0 (0-0.2) 10^3/ul Absolute Nucleated RBC 0 10^3/ul Nucleated RBC % 0 Influenza A (Rapid) Negative (Negative) Influenza B (Rapid) Negative (Negative) Microbiology and Other Data: Microbiology 07/21/18 08:23 Aerobic Blood Culture - Preliminary Blood Venous No Growth Day 1 Anaerobic Blood Culture - Preliminary No Growth Day 1 07/21/18 08:23 Aerobic Blood Culture - Preliminary Blood Venous No Growth Day 1 Anaerobic Blood Culture - Preliminary No Growth Day 1 07/21/18 11:56 Legionella Urinary Antigen - Final Urine Negative Legionella Antigen Streptococcus pneumoniae Ag Screen - Final Negative S. pneumo Antigen 07/21/18 14:00 Nasal Screen MRSA (PCR) - Final Nasal Mrsa Detected 07/21/18 11:56 Gram Stain - Final Sputum 07/21/18 08:13 Influenza Types A,B Antigen - Final Nasopharyngeal Specimen received for Influenza A/B Molecular testing Diagnostic Imaging: Patient Name: DEWAYNE FLANAGAN Medical Record#: [id number] Ordering Physician: Aicha GABRIEL Acct.#: [id number] : 1950 Age: 67 Sex: M Location: EMERGENCY DEPARTMENT Exam Date: 07/21/18803 ADM Status: REG ER Order Information: CHEST PA & LAT 2 VWS Accession Number: [id number] CPT: 13193 INDICATION: Cough, fever, chills, generalized weakness. COMPARISON: No relevant prior exams available on the [facility]. TECHNIQUE: Sitting AP and lateral chest views. REPORT: Moderately large RIGHT subpulmonic pleural effusion with proportional partial atelectasis of the RIGHT lung. Mild patchy airspace consolidation within the residual aerated RIGHT lung and at the LEFT lung base. Negative for pneumothorax. Accounting for rightward rotation the heart, central pulmonary vasculature, and mediastinal contours are unremarkable. IMPRESSION: #. Moderately large subpulmonic RIGHT pleural effusion with proportional atelectasis. #. Probable bilateral inflammatory infiltrates/pneumonia. <Electronically signed by Anjum De Leon MD in [place]> 07/21/18944 Dictated By: Anjum De Leon MD Dictated Date/Time: 07/21/18944 Transcribed Date/Time: 07/21/1842 Copy to: Patient Name: DEWAYNE FLANAGAN Medical Record#: [id number] Ordering Physician: Tanna GABRIEL Acct.#: [id number] : 1950 Age: 67 Sex: M Location: [address] [place] [address] MEDICAL/TELEMETRY Exam Date: 07/23/18 1307 ADM Status: ADM IN Order Information: ABDOMEN (COMPLETE) 2 S Accession Number: [id number] CPT: 20299 INDICATION: Left lower quadrant abdominal pain. COMPARISON: There are no relevant prior studies available for comparison. TECHNIQUE: Supine and decubitus views of the abdomen were obtained. FINDINGS: There is mild gaseous distention of the small bowel. Air is also seen within the colon which is nondistended. There are few scattered air-fluid levels. No free intraperitoneal air is seen. There is a moderate amount retained stool present. 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 IMPRESSION: NONSPECIFIC GAS PATTERN CONSIDER FOLLOW-UP. <Electronically signed by Olayinka Naylor MD in [place]> 07/23/18 163 Dictated By: Olayinka Naylor MD Dictated Date/Time: 07/23/18 163 Transcribed Date/Time: 07/23/18 163 Copy to: Assess/Plan/Problems-Billing Assessment: This is a 67 year old male that presented to ED with 10 day complaint of fever, SOB, cough and chills, admitted for CAP/right pleural effusion. New complaint of LLQ abdominal pain x4days and periods of bradycardia overnight. - Patient Problems (1) Hypotension Current Visit: Yes Status: Acute Comment: #Mild hypotension: -Decreased Carvedilol back to home levels as Digoxin dose optimized -Gave bolus and currently on IVFs (2) CAP (community acquired pneumonia) Current Visit: Yes Status: Acute Code(s): J18.9 - PNEUMONIA, UNSPECIFIED ORGANISM SNOMED Code(s): 766348298 Comment: -Continue Doxycycline, abx 04/19 (3) PAF (paroxysmal atrial fibrillation) Current Visit: Yes Status: Acute Code(s): I48.0 - PAROXYSMAL ATRIAL FIBRILLATION SNOMED Code(s): 534038516 Comment: -Please see above discussion for changes in digoxin dose Records from [facility] in 2010 showed cardiac cath with EF 60% and normal coronary angiogram with dominant RCA, no MR and no . - Notes from Dr Higgins (lathe mechanic) - 11/25 doesn't mention any Warfarin allergy. - Continue Lovenox and Aspirin 81mg. - [id number] is 2 - may be a candidate for NOAC on discharge. (4) Idiopathic progressive neuropathy Current Visit: Yes Status: Acute Code(s): G60.3 - IDIOPATHIC PROGRESSIVE NEUROPATHY SNOMED Code(s): 466198456 Comment: - Records from Neurology reviewed - thought to have a possible mitochondrial disorder due to his ptosis, hearing loss, balding, macrocephaly, and moderately severe axonal neuropathy. There was also concern for myotonic distrophy, but EMG was negative. - Recommended creatine, CoQ10, riboflavin to help suspected mitochondrial condition. (5) Diastolic CHF Current Visit: Yes Status: Acute Code(s): I50.30 - UNSPECIFIED DIASTOLIC ( CONGESTIVE) HEART FAILURE SNOMED Code(s): 163595239 Comment: - Stable. - Continue Coreg. (6) DVT prophylaxis Current Visit: Yes Status: Acute Code(s): QTD4243 - SNOMED Code(s): 826369849 Comment: - SQ heparin. Status and Disposition: -Inpatient. Will likely need KELLEN. -Possible D/C once in AM if w/place
[2018-07-30] MEDS ORDERED: NS 0.9% 250 ML* 250 ML IV ONE (19:57)
[2018-07-30] MEDS: Carvedilol TAB* 6.25 MG PO SCH ×2 (20:12→20:16)
[2018-07-31] MEDS: NS 0.9% 1000 ML* 1,000 ML IV SCH ×2 (05:45→23:02)
[2018-07-31] MEDS: Acetaminophen TAB* 325 MG PO PRN ×3 (05:51→23:02)
[2018-07-31 06:10] LABS: ABS Basophils 0.1 10^3/ul (0-0.2); ABS Eosinophils 0.1 10^3/ul (0-0.6); ABS Monocytes 0.6 10^3/ul (0-0.8); ABS Neutrophils 6.4 10^3/ul (1.5-7.7); ABS Nucleated RBC 0 10^3/ul; Eosinophil % 1.3 %; Hematocrit 38 % (42-52); Hemoglobin 13.1 g/dl (14.0-18.0); Lymphocyte % 12.4 %; Mean Corpuscular HGB Conc 35 g/dl (31-36); Mean Corpuscular Hemoglobin 32 pg (27-31); Mean Corpuscular Volume 92 fL (80-94); Mean Platelet Volume 6.5 fL (7.4-10.4); Nucleated Red Blood Cells % 0; Platelet Count 506 10^3/ul (150-450); Red Blood Count 4.13 10^6/ul (4.00-5.40); Red Cell Distribution Width 13 % (10.5-15); White Blood Count 8.2 10^3/ul (3.5-10.8)
[2018-07-31 06:28] LABS: Albumin 2.9 g/dL (3.2-5.2); Albumin/Globulin Ratio 0.9 (1-3); BUN/Creatinine Ratio 18.9 (8-20); Calcium 9.2 mg/dL (8.6-10.3); EGFR Non-African American 105.8 (>60); Globulin 3.1 g/dL (2-4); Magnesium 2.2 mg/dL (1.9-2.7); Phosphorus 2.9 mg/dL (2.5-5.0); Potassium 4.3 mmol/L (3.5-5.0); Total Bilirubin 0.3 mg/dL (0.2-1.0)
[2018-07-31] MEDS: Coenzyme Q10 (NF) ** ENTER STREGNTH IN LABEL DIRECTIONS PO SCH (08:53)
[2018-07-31] MEDS: Riboflavin (B2) (NF) 100 MG TAB PO SCH ×2 (08:53→20:15)
[2018-07-31] MEDS: Digoxin TAB* 0.125 MG PO SCH (09:19)
[2018-07-31] MEDS: guaiFENesin ER TAB 600 MG PO SCH ×2 (09:19→20:15)
[2018-07-31] MEDS: DOXYcycline CAP(*) 100 MG PO SCH ×2 (09:19→20:15)
[2018-07-31] MEDS: Polyethylene Glycol 3350* 17 GM PACKET PO SCH (09:20)
[2018-07-31] MEDS: Carvedilol TAB* 6.25 MG PO SCH ×2 (09:20→20:16)
[2018-07-31] MEDS: Aspirin EC TAB* 81 MG TAB.EC PO SCH (09:20)
[2018-07-31] MEDS: Enoxaparin(*) 150 MG/ML 1 ML SYRINGE SUBCUT SCH ×2 (11:32→23:01)
--- NOTE | 2018-07-31 16:08 | PN ---
Subjective Date of Service: 07/31/18 Interval History: Pt seen and examined. Meds and labs reviewed. Spoke w/pt's brother on the phone and updated him of pt's status CC: Initially epigastric discomfort that migrated today to RUQ ROS: Denied FAUST/dizziness, F/C, N/V, CP, SOB, increased cough, sputum production , abd pain, diarrhea, constipation, dysuria, myalgias, arthralgias, throat pain , and new skin lesions. The rest of the 14 point ROS are unremarkable. PHYSICAL EXAM: GEN APPEARANCE: Awake, not in acute distress HEENT: NC/AT, PERRLA, moist oral mucosa, (-) throat erythema NECK: Soft, supple, (-) cervical LAD, (-)JVD HEART: S1S2 WNL, RRR, No MRG CHEST: CTA, BL, GAE, No W/R/R ABD: Soft, ND/NT, NABS 4x Q EXT: No C/C/E SKIN: Warm to touch PSYCH: No active psychosis, hallucinations, depression, SI/HI Family History: Unchanged from Admission Social History: Unchanged from Admission Past Medical History: Unchanged from Admission Objective Active Medications: Acetaminophen (Tylenol Tab*) 650 mg PO Q6H PRN PRN Reason: fever/discomfort Last Admin: 07/31/18 14:58 Dose: 650 mg Al Hydrox/Mg Hydrox/Simethicone (Maalox Plus*) 30 ml PO Q4H PRN PRN Reason: stomach Last Admin: 07/28/18 12:31 Dose: 30 ml Albuterol (Ventolin Hfa Inhaler*) 2 puff INH Q4H PRN PRN Reason: SOB/WHEEZING Albuterol/Ipratropium (Duoneb (Albuterol 2.5 Mg/Ipratropium 0.5 Mg)) 1 neb INH Q6H PRN PRN Reason: SOB/WHEEZING Aspirin (Aspirin Ec Tab*) 81 mg PO DAILY [facility] Last Admin: 07/31/18 09:20 Dose: 81 mg Carvedilol (Coreg Tab*) 6.25 mg PO BID [facility] Last Admin: 07/31/18 09:20 Dose: 6.25 mg Coenzyme Q10 (Coenzyme Q10 (Nf)) 1 cap PO DAILY [facility] Last Admin: 07/31/18 08:53 Dose: Not Given Digoxin (Lanoxin Tab*) 0.125 mg PO 0900 [facility] Last Admin: 07/31/18 09:19 Dose: 0.125 mg Doxycycline Hyclate (Vibramycin Cap(*)) 100 mg PO BID [facility] Last Admin: 07/31/18 09:19 Dose: 100 mg Enoxaparin Sodium (Lovenox(*)) 110 mg SUBCUT Q12H [facility] Last Admin: 07/31/18 11:32 Dose: 110 mg Guaifenesin (Mucinex*) 600 mg PO BID [facility] Last Admin: 07/31/18 09:19 Dose: 600 mg Sodium Chloride (Ns 0.9% 1000 Ml*) 1,000 mls @ 75 mls/hr IV PER RATE [facility] Last Admin: 07/31/18 05:45 Dose: 75 mls/hr Lactobacillus Rhamnosus (Lactobacillus Acidophilus*) 2 tab PO DAILY [facility] Metoprolol Tartrate (Lopressor Iv*) 5 mg IV Q6H PRN PRN Reason: HR>120 Last Admin: 07/29/18 09:12 Dose: 5 mg Omeprazole (Prilosec Cap*) 20 mg PO DAILY@0730 [facility] Polyethylene Glycol/Electrolytes (Miralax*) 17 gm PO DAILY [facility] Last Admin: 07/31/18 09:20 Dose: 17 gm Riboflavin (Vitamin B-2 (Nf)) 200 mg PO BID [facility] Last Admin: 07/31/18 08:53 Dose: Not Given Vital Signs - 8 hr 07/31/18 07/31/18 07/31/18 08:46 09:19 11:40 Temperature 97.8 F 97.3 F Pulse Rate 101 113 81 Respiratory 20 18 Rate Blood Pressure 98/54 102/60 (mmHg) O2 Sat by Pulse 97 98 Oximetry 07/31/18 11:49 Temperature Pulse Rate 127 Respiratory Rate Blood Pressure 104/69 (mmHg) O2 Sat by Pulse Oximetry Oxygen Devices in Use Now: None Result Diagrams: 07/31/18 06:00 07/31/18 06:00 Additional Lab and Data: Lab Results 07/21/18 07/21/18 Range/Units 08:23 08:29 WBC 17.1 H (3.5-10.8) 10^3/ul RBC 3.75 L (4.00-5.40) 10^6/ul Hgb 11.7 L (14.0-18.0) g/dl Hct 34 L (42-52) % MCV 91 (80-94) fL MCH 31 (27-31) pg MCHC 34 (31-36) g/dl RDW 13 (10.5-15) % Plt Count 347 (150-450) 10^3/ul MPV 6.9 L (7.4-10.4) fL Neut % (Auto) 89.3 % Lymph % (Auto) 3.0 % [place] % (Auto) 7.4 % Eos % (Auto) 0.1 % Baso % (Auto) 0.2 % Absolute Neuts (auto) 15.2 H (1.5-7.7) 10^3/ul Absolute Lymphs (auto) 0.5 L (1.0-4.8) 10^3/ul Absolute Monos (auto) 1.3 H (0-0.8) 10^3/ul Absolute Eos (auto) 0 (0-0.6) 10^3/ul Absolute Basos (auto) 0 (0-0.2) 10^3/ul Absolute Nucleated RBC 0 10^3/ul Nucleated RBC % 0 Influenza A (Rapid) Negative (Negative) Influenza B (Rapid) Negative (Negative) Microbiology and Other Data: Microbiology 07/21/18 08:23 Aerobic Blood Culture - Preliminary Blood Venous No Growth Day 1 Anaerobic Blood Culture - Preliminary No Growth Day 1 07/21/18 08:23 Aerobic Blood Culture - Preliminary Blood Venous No Growth Day 1 Anaerobic Blood Culture - Preliminary No Growth Day 1 07/21/18 11:56 Legionella Urinary Antigen - Final Urine Negative Legionella Antigen Streptococcus pneumoniae Ag Screen - Final Negative S. pneumo Antigen 07/21/18 14:00 Nasal Screen MRSA (PCR) - Final Nasal Mrsa Detected 07/21/18 11:56 Gram Stain - Final Sputum 07/21/18 08:13 Influenza Types A,B Antigen - Final Nasopharyngeal Specimen received for Influenza A/B Molecular testing Diagnostic Imaging: Patient Name: DEWAYNE FLANAGAN Medical Record#: [id number] Ordering Physician: Aicha GABRIEL Acct.#: [id number] : 1950 Age: 67 Sex: M Location: EMERGENCY DEPARTMENT Exam Date: 07/21/18803 ADM Status: REG ER Order Information: CHEST PA & LAT 2 VWS Accession Number: [id number] CPT: 69235 INDICATION: Cough, fever, chills, generalized weakness. COMPARISON: No relevant prior exams available on the [facility] [place]ACS for comparison. TECHNIQUE: Sitting AP and lateral chest views. REPORT: Moderately large RIGHT subpulmonic pleural effusion with proportional partial atelectasis of the RIGHT lung. Mild patchy airspace consolidation within the residual aerated RIGHT lung and at the LEFT lung base. Negative for pneumothorax. Accounting for rightward rotation the heart, central pulmonary vasculature, and mediastinal contours are unremarkable. IMPRESSION: #. Moderately large subpulmonic RIGHT pleural effusion with proportional atelectasis. #. Probable bilateral inflammatory infiltrates/pneumonia. <Electronically signed by Anjum De Leon MD in [place]> 07/21/18944 Dictated By: Anjum De Leon MD Dictated Date/Time: 07/21/18944 Transcribed Date/Time: 07/21/18941 Copy to: Patient Name: DEWAYNE FLANAGAN Medical Record#: [id number] Ordering Physician: Tanna GABRIEL Acct.#: [id number] : 1950 Age: 67 Sex: M Location: [address] [place] [address]/TELEMETRY Exam Date: 07/23/18 1307 ADM Status: ADM IN Order Information: ABDOMEN (COMPLETE) 2 [facility] Accession Number: [id number] CPT: 50675 INDICATION: Left lower quadrant abdominal pain. COMPARISON: There are no relevant prior studies available for comparison. TECHNIQUE: Supine and decubitus views of the abdomen were obtained. FINDINGS: There is mild gaseous distention of the small bowel. Air is also seen within the colon which is nondistended. There are few scattered air-fluid levels. No free intraperitoneal air is seen. There is a moderate amount retained stool present. 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 IMPRESSION: NONSPECIFIC GAS PATTERN CONSIDER FOLLOW-UP. <Electronically signed by Olayinka Naylor MD in [place]> 07/23/18 1633 Dictated By: Olayinka Naylor MD Dictated Date/Time: 07/23/18 1633 Transcribed Date/Time: 07/23/18 1630 Copy to: Assess/Plan/Problems-Billing Assessment: This is a 67 year old male that presented to ED with 10 day complaint of fever, SOB, cough and chills, admitted for CAP/right pleural effusion. New complaint of LLQ abdominal pain x4days and periods of bradycardia overnight. - Patient Problems (1) Abdominal pain Current Visit: Yes Status: Acute Code(s): R10.9 - UNSPECIFIED ABDOMINAL PAIN SNOMED Code(s): 14639248 Comment: -Unclear cause -Benign abdominal exam -Only mildly elevated LFTs but improved likely due to multiple comorbidities along with known history of ETOH abuse -Check viral screen -Will await result of abd U/S -Possibly due to GERD---started pt on pantoprazole -Encouraged pt to ask for PRN Miralax (2) Hypotension Current Visit: Yes Status: Acute Comment: #Mild hypotension: -Decreased Carvedilol back to home levels as Digoxin dose optimized -Improved -Orthostatic VS shows POTS, without drop in BP -Continue IVFs for now and consider D/C in AM (3) CAP (community acquired pneumonia) Current Visit: Yes Status: Acute Code(s): J18.9 - PNEUMONIA, UNSPECIFIED ORGANISM SNOMED Code(s): 413066020 Comment: -Continue Doxycycline, abx 05/19 -Place pt on Lactobacillus supp (4) PAF (paroxysmal atrial fibrillation) Current Visit: Yes Status: Acute Code(s): I48.0 - PAROXYSMAL ATRIAL FIBRILLATION SNOMED Code(s): 064201414 Comment: -Please see above discussion for changes in digoxin dose Records from [facility] in 2010 showed cardiac cath with EF 60% and normal coronary angiogram with dominant RCA, no MR and no . - Notes from Dr Higgins (pen ruler operator) - 11/25 doesn't mention any Warfarin allergy. - Continue Lovenox and Aspirin 81mg. - [id number] is 2 - may be a candidate for NOAC on discharge. 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 There was also concern for myotonic distrophy, but EMG was negative. - Recommended creatine, CoQ10, riboflavin to help suspected mitochondrial condition. (6) Diastolic CHF Current Visit: Yes Status: Acute Code(s): I50.30 - UNSPECIFIED DIASTOLIC ( CONGESTIVE) HEART FAILURE SNOMED Code(s): 320131643 Comment: - Stable. - Continue Coreg. (7) DVT prophylaxis Current Visit: Yes Status: Acute Code(s): XAG4462 - SNOMED Code(s): 332837925 Comment: - SQ heparin. Status and Disposition: -D/C with KELLEN placement pending
[2018-07-31] MEDS: Lactobacillus Acidophilus* 1 TAB PO SCH (16:26)
[2018-07-31] MEDS: Omeprazole CAP* 20 MG PO SCH (16:26)
[2018-08-01] MEDS: Acetaminophen TAB* 325 MG PO PRN ×3 (05:54→20:53)
[2018-08-01 06:16] LABS: Hematocrit 38 % (42-52); Hemoglobin 12.8 g/dl (14.0-18.0); Mean Corpuscular HGB Conc 34 g/dl (31-36); Mean Corpuscular Hemoglobin 31 pg (27-31); Mean Corpuscular Volume 92 fL (80-94); Mean Platelet Volume 6.7 fL (7.4-10.4); Platelet Count 458 10^3/ul (150-450); Red Blood Count 4.14 10^6/ul (4.00-5.40); Red Cell Distribution Width 13 % (10.5-15); White Blood Count 8.7 10^3/ul (3.5-10.8)
[2018-08-01 06:33] LABS: Calcium 9.2 mg/dL (8.6-10.3); EGFR Non-African American 137.4 (>60); Potassium 4.2 mmol/L (3.5-5.0)
[2018-08-01] MEDS: Carvedilol TAB* 6.25 MG PO SCH ×2 (08:34→20:48)
[2018-08-01] MEDS: Lactobacillus Acidophilus* 1 TAB PO SCH (08:34)
[2018-08-01] MEDS: Polyethylene Glycol 3350* 17 GM PACKET PO SCH (08:34)
[2018-08-01] MEDS: Digoxin TAB* 0.125 MG PO SCH (08:34)
[2018-08-01] MEDS: guaiFENesin ER TAB 600 MG PO SCH ×2 (08:34→20:48)
[2018-08-01] MEDS: Aspirin EC TAB* 81 MG TAB.EC PO SCH (08:34)
[2018-08-01] MEDS: Omeprazole CAP* 20 MG PO SCH (08:34)
[2018-08-01] MEDS: DOXYcycline CAP(*) 100 MG PO SCH (08:35)
[2018-08-01] MEDS: Coenzyme Q10 (NF) ** ENTER STREGNTH IN LABEL DIRECTIONS PO SCH (08:35)
[2018-08-01] MEDS: Riboflavin (B2) (NF) 100 MG TAB PO SCH ×2 (08:35→20:49)
[2018-08-01] MEDS ORDERED: NS 0.9% 1000 ML* 1,000 ML IV SCH (09:30)
[2018-08-01 09:51] LABS: Hepatitis B Surface Antigen Nonreactive (Nonreactive)
[2018-08-01] MEDS: Metoprolol Tartrate IV* 1 MG/ML 5 ML VIAL IV PRN (10:11)
[2018-08-01] MEDS: Enoxaparin(*) 150 MG/ML 1 ML SYRINGE SUBCUT SCH ×2 (10:11→21:57)
[2018-08-01 10:15] LABS: Hepatitis C Antibody Nonreactive (Nonreactive)
--- NOTE | 2018-08-01 16:12 | PN ---
Subjective Date of Service: 08/01/18 Interval History: Pt seen and examined. Meds and labs reviewed. Mentions abd pain has resolved and PPI added helped. However, requests Maalox be changed to Tums since he has intermittent loose stools when he gets them. CC: N/A ROS: Denied FAUST/dizziness, F/C, N/V, CP, SOB, increased cough, sputum production , abd pain, diarrhea, constipation, dysuria, myalgias, arthralgias, throat pain , and new skin lesions. The rest of the 14 point ROS are unremarkable. PHYSICAL EXAM: GEN APPEARANCE: Awake, not in acute distress HEENT: NC/AT, PERRLA, moist oral mucosa, (-) throat erythema NECK: Soft, supple, (-) cervical LAD, (-)JVD HEART: S1S2 WNL, RRR, No MRG CHEST: CTA, BL, GAE, No W/R/R ABD: Soft, ND/NT, NABS 4x Q EXT: No C/C/E SKIN: Warm to touch PSYCH: No active psychosis, hallucinations, depression, SI/HI Family History: Unchanged from Admission Social History: Unchanged from Admission Past Medical History: Unchanged from Admission Objective Active Medications: Acetaminophen (Tylenol Tab*) 650 mg PO Q6H PRN PRN Reason: fever/discomfort Last Admin: 08/01/18 14:14 Dose: 650 mg Albuterol (Ventolin Hfa Inhaler*) 2 puff INH Q4H PRN PRN Reason: SOB/WHEEZING Albuterol/Ipratropium (Duoneb (Albuterol 2.5 Mg/Ipratropium 0.5 Mg)) 1 neb INH Q6H PRN PRN Reason: SOB/WHEEZING Aspirin (Aspirin Ec Tab*) 81 mg PO DAILY [facility] Last Admin: 08/01/18 08:34 Dose: 81 mg Calcium Carbonate (Tums*) 500 mg PO Q4H PRN PRN Reason: Breakthrough dyspepsia/abd dis Carvedilol (Coreg Tab*) 6.25 mg PO BID [facility] Last Admin: 08/01/18 08:34 Dose: 6.25 mg Coenzyme Q10 (Coenzyme Q10 (Nf)) 1 cap PO DAILY [facility] Last Admin: 08/01/18 08:35 Dose: Not Given Digoxin (Lanoxin Tab*) 0.125 mg PO 0900 [facility] Last Admin: 08/01/18 08:34 Dose: 0.125 mg Enoxaparin Sodium (Lovenox(*)) 110 mg SUBCUT Q12H [facility] Last Admin: 08/01/18 10:11 Dose: 110 mg Guaifenesin (Mucinex*) 600 mg PO BID [facility] Last Admin: 08/01/18 08:34 Dose: 600 mg Sodium Chloride (Ns 0.9% 1000 Ml*) 1,000 mls @ 75 mls/hr IV PER RATE PING Stop: 08/01/18 22:49 Last Admin: 08/01/18 09:55 Dose: 75 mls/hr Lactobacillus Rhamnosus (Lactobacillus Acidophilus*) 2 tab PO DAILY [facility] Last Admin: 08/01/18 08:34 Dose: 2 tab Metoprolol Tartrate (Lopressor Iv*) 5 mg IV Q6H PRN PRN Reason: HR>120 Last Admin: 08/01/18 10:11 Dose: 5 mg Omeprazole (Prilosec Cap*) 20 mg PO DAILY@0730 [facility] Last Admin: 08/01/18 08:34 Dose: 20 mg Polyethylene Glycol/Electrolytes (Miralax*) 17 gm PO DAILY [facility] Last Admin: 08/01/18 08:34 Dose: 17 gm Riboflavin (Vitamin B-2 (Nf)) 200 mg PO BID [facility] Last Admin: 08/01/18 08:35 Dose: Not Given Vital Signs - 8 hr 08/01/18 08/01/18 08/01/18 08:17 08:34 10:05 Temperature 98.6 F Pulse Rate 107 110 119 Respiratory 20 Rate Blood Pressure 91/55 151/104 (mmHg) O2 Sat by Pulse 95 Oximetry 08/01/18 12:05 Temperature 98.7 F Pulse Rate 92 Respiratory 18 Rate Blood Pressure 92/44 (mmHg) O2 Sat by Pulse 98 Oximetry Oxygen Devices in Use Now: None Result Diagrams: 08/01/18 06:09 08/01/18 06:09 Additional Lab and Data: Lab Results 07/21/18 07/21/18 Range/Units 08:23 08:29 WBC 17.1 H (3.5-10.8) 10^3/ul RBC 3.75 L (4.00-5.40) 10^6/ul Hgb 11.7 L (14.0-18.0) g/dl Hct 34 L (42-52) % MCV 91 (80-94) fL MCH 31 (27-31) pg MCHC 34 (31-36) g/dl RDW 13 (10.5-15) % Plt Count 347 (150-450) 10^3/ul MPV 6.9 L (7.4-10.4) fL Neut % (Auto) 89.3 % Lymph % (Auto) 3.0 % [place] % (Auto) 7.4 % Eos % (Auto) 0.1 % Baso % (Auto) 0.2 % Absolute Neuts (auto) 15.2 H (1.5-7.7) 10^3/ul Absolute Lymphs (auto) 0.5 L (1.0-4.8) 10^3/ul Absolute Monos (auto) 1.3 H (0-0.8) 10^3/ul Absolute Eos (auto) 0 (0-0.6) 10^3/ul Absolute Basos (auto) 0 (0-0.2) 10^3/ul Absolute Nucleated RBC 0 10^3/ul Nucleated RBC % 0 Influenza A (Rapid) Negative (Negative) Influenza B (Rapid) Negative (Negative) Microbiology and Other Data: Microbiology 07/21/18 08:23 Aerobic Blood Culture - Preliminary Blood Venous No Growth Day 1 Anaerobic Blood Culture - Preliminary No Growth Day 1 07/21/18 08:23 Aerobic Blood Culture - Preliminary Blood Venous No Growth Day 1 Anaerobic Blood Culture - Preliminary No Growth Day 1 07/21/18 11:56 Legionella Urinary Antigen - Final Urine Negative Legionella Antigen Streptococcus pneumoniae Ag Screen - Final Negative S. pneumo Antigen 07/21/18 14:00 Nasal Screen MRSA (PCR) - Final Nasal Mrsa Detected 07/21/18 11:56 Gram Stain - Final Sputum 07/21/18 08:13 Influenza Types A,B Antigen - Final Nasopharyngeal Specimen received for Influenza A/B Molecular testing Diagnostic Imaging: Patient Name: DEWAYNE FLANAGAN Medical Record#: [id number] Ordering Physician: Aicha GABRIEL Acct.#: [id number] : 1950 Age: 67 Sex: M Location: EMERGENCY DEPARTMENT Exam Date: 07/21/18803 ADM Status: REG ER Order Information: CHEST PA & LAT 2 VWS Accession Number: [id number] CPT: 43744 INDICATION: Cough, fever, chills, generalized weakness. COMPARISON: No relevant prior exams available on the [facility] PACS for comparison. TECHNIQUE: Sitting AP and lateral chest views. REPORT: Moderately large RIGHT subpulmonic pleural effusion with proportional partial atelectasis of the RIGHT lung. Mild patchy airspace consolidation within the residual aerated RIGHT lung and at the LEFT lung base. Negative for pneumothorax. Accounting for rightward rotation the heart, central pulmonary vasculature, and mediastinal contours are unremarkable. IMPRESSION: #. Moderately large subpulmonic RIGHT pleural effusion with proportional atelectasis. #. Probable bilateral inflammatory infiltrates/pneumonia. <Electronically signed by Anjum De Leon MD in OV> 07/21/18944 Dictated By: Anjum De Leon MD Dictated Date/Time: 07/21/18944 Transcribed Date/Time: 07/21/18941 Copy to: Patient Name: DEWAYNE FLANAGAN Medical Record#: [id number] Ordering Physician: Tanna GABRIEL Acct.#: [id number] : 1950 Age: 67 Sex: M Location: [address] [place] [address]/TELEMETRY Exam Date: 07/23/18 1307 ADM Status: ADM IN Order Information: ABDOMEN (COMPLETE) 2 [facility] Accession Number: [id number] CPT: 64643 INDICATION: Left lower quadrant abdominal pain. COMPARISON: There are no relevant prior studies available for comparison. TECHNIQUE: Supine and decubitus views of the abdomen were obtained. FINDINGS: There is mild gaseous distention of the small bowel. Air is also seen within the colon which is nondistended. There are few scattered air-fluid levels. No free intraperitoneal air is seen. There is a moderate amount retained stool present. 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 IMPRESSION: NONSPECIFIC GAS PATTERN CONSIDER FOLLOW-UP. <Electronically signed by Olayinka Naylor MD in OV> 07/23/181632 Dictated By: Olayinka Naylor MD Dictated Date/Time: 07/23/18 163 Transcribed Date/Time: 07/23/18 1630 Copy to: Assess/Plan/Problems-Billing Assessment: This is a 67 year old male that presented to ED with 10 day complaint of fever, SOB, cough and chills, admitted for CAP/right pleural effusion. New complaint of LLQ abdominal pain x4days and periods of bradycardia overnight. - Patient Problems (1) Abdominal pain Current Visit: Yes Status: Acute Code(s): R10.9 - UNSPECIFIED ABDOMINAL PAIN SNOMED Code(s): 04923226 Comment: -Likely due to GERD given improvement w/PPI and PRN Maalox (w/c will be replaced w/Tums per pt request) -Benign abdominal exam -Only mildly elevated LFTs but improved likely due to multiple comorbidities along with known history of ETOH abuse -Hepatitis viral screen (-) -Will await result of abd U/S -Possibly due to GERD---started pt on pantoprazole (2) Hypotension Current Visit: Yes Status: Acute Comment: #Mild hypotension: -Decreased Carvedilol back to home levels as Digoxin dose optimized -Improved -Re-check Digoxin level in AM -Orthostatic VS shows POTS, without drop in BP -Continue IVFs for now until order transpires then reassess (3) CAP (community acquired pneumonia) Current Visit: Yes Status: Acute Code(s): J18.9 - PNEUMONIA, UNSPECIFIED ORGANISM SNOMED Code(s): 905656664 Comment: -D/Cd Doxycylcine---completed 10 day therapy -Continue Lactobacillus supp (4) PAF (paroxysmal atrial fibrillation) Current Visit: Yes Status: Acute Code(s): I48.0 - PAROXYSMAL ATRIAL FIBRILLATION SNOMED Code(s): 046980904 Comment: -Will recheck Digoxin levels in AM Records from [facility] in 2010 showed cardiac cath with EF 60% and normal coronary angiogram with dominant RCA, no MR and no . - Notes from Dr Higgins (customs import specialist) - 11/25 doesn't mention any Warfarin allergy. - Continue Lovenox and Aspirin 81mg. - [id number] is 2 - may be a candidate for NOAC on discharge. (5) Idiopathic progressive neuropathy Current Visit: Yes Status: Acute Code(s): G60.3 - IDIOPATHIC PROGRESSIVE NEUROPATHY SNOMED Code(s): 073316158 Comment: - Records from Neurology reviewed - thought to have a possible mitochondrial disorder due to his ptosis, hearing loss, balding, macrocephaly, and moderately severe axonal neuropathy. There was also concern for myotonic distrophy, but EMG was negative. - Recommended creatine, CoQ10, riboflavin to help suspected mitochondrial condition. (6) Diastolic CHF Current Visit: Yes Status: Acute Code(s): I50.30 - UNSPECIFIED DIASTOLIC ( CONGESTIVE) HEART FAILURE SNOMED Code(s): 356837522 Comment: - Stable. - Continue Coreg. (7) DVT prophylaxis Current Visit: Yes Status: Acute Code(s): UDW4628 - SNOMED Code(s): 799682017 Comment: - SQ heparin. Status and Disposition: -D/C with [facility] placement pending
[2018-08-02 06:43] LABS: ABS Basophils 0.1 10^3/ul (0-0.2); ABS Eosinophils 0.1 10^3/ul (0-0.6); ABS Lymphocytes 0.9 10^3/ul (1.0-4.8); ABS Monocytes 0.6 10^3/ul (0-0.8); ABS Neutrophils 7.7 10^3/ul (1.5-7.7); ABS Nucleated RBC 0 10^3/ul; Eosinophil % 1.3 %; Hematocrit 37 % (42-52); Hemoglobin 12.5 g/dl (14.0-18.0); Mean Corpuscular HGB Conc 34 g/dl (31-36); Mean Corpuscular Hemoglobin 31 pg (27-31); Mean Corpuscular Volume 91 fL (80-94); Mean Platelet Volume 6.8 fL (7.4-10.4); Nucleated Red Blood Cells % 0; Platelet Count 477 10^3/ul (150-450); Red Blood Count 4.07 10^6/ul (4.00-5.40); Red Cell Distribution Width 14 % (10.5-15); White Blood Count 9.5 10^3/ul (3.5-10.8)
[2018-08-02] MEDS: Acetaminophen TAB* 325 MG PO PRN ×2 (06:43→20:30)
[2018-08-02 06:58] LABS: Albumin 2.9 g/dL (3.2-5.2); Albumin/Globulin Ratio 0.9 (1-3); BUN/Creatinine Ratio 20.6 (8-20); Calcium 9.3 mg/dL (8.6-10.3); EGFR Non-African American 127.4 (>60); Globulin 3.1 g/dL (2-4); Phosphorus 2.8 mg/dL (2.5-5.0); Potassium 4.2 mmol/L (3.5-5.0); Total Bilirubin 0.4 mg/dL (0.2-1.0)
[2018-08-02 07:08] LABS: Digoxin 0.4 ng/ml (0.8-2.0)
[2018-08-02] MEDS: Omeprazole CAP* 20 MG PO SCH (09:08)
[2018-08-02] MEDS: Carvedilol TAB* 6.25 MG PO SCH ×2 (09:08→20:11)
[2018-08-02] MEDS: Digoxin TAB* 0.125 MG PO SCH (09:08)
[2018-08-02] MEDS: Aspirin EC TAB* 81 MG TAB.EC PO SCH (09:08)
[2018-08-02] MEDS: guaiFENesin ER TAB 600 MG PO SCH ×2 (09:08→20:14)
[2018-08-02] MEDS: Coenzyme Q10 (NF) ** ENTER STREGNTH IN LABEL DIRECTIONS PO SCH (09:10)
[2018-08-02] MEDS: Polyethylene Glycol 3350* 17 GM PACKET PO SCH (09:10)
[2018-08-02] MEDS: Riboflavin (B2) (NF) 100 MG TAB PO SCH ×2 (09:13→21:29)
[2018-08-02] MEDS: Metoprolol Tartrate IV* 1 MG/ML 5 ML VIAL IV PRN (09:59)
--- NOTE | 2018-08-02 10:30 | PN ---
Subjective Date of Service: 08/02/18 Interval History: Almost no cough. No abd pain. Good appetite. No bowel c/o. No new c/o. Family History: Unchanged from Admission Social History: Unchanged from Admission Past Medical History: Unchanged from Admission Objective Active Medications: Acetaminophen (Tylenol Tab*) 650 mg PO Q6H PRN PRN Reason: fever/discomfort Last Admin: 08/02/18 06:43 Dose: 650 mg Albuterol (Ventolin Hfa Inhaler*) 2 puff INH Q4H PRN PRN Reason: SOB/WHEEZING Albuterol/Ipratropium (Duoneb (Albuterol 2.5 Mg/Ipratropium 0.5 Mg)) 1 neb INH Q6H PRN PRN Reason: SOB/WHEEZING Aspirin (Aspirin Ec Tab*) 81 mg PO DAILY [facility] Last Admin: 08/02/18 09:08 Dose: 81 mg Calcium Carbonate (Tums*) 500 mg PO Q4H PRN PRN Reason: Breakthrough dyspepsia/abd dis Carvedilol (Coreg Tab*) 9.375 mg PO BID [facility] Coenzyme Q10 (Coenzyme Q10 (Nf)) 1 cap PO DAILY [facility] Last Admin: 08/02/18 09:10 Dose: Not Given Enoxaparin Sodium (Lovenox(*)) 110 mg SUBCUT Q12H [facility] Last Admin: 08/01/18 21:57 Dose: 110 mg Guaifenesin (Mucinex*) 600 mg PO BID [facility] Last Admin: 08/02/18 09:08 Dose: 600 mg Lactobacillus Rhamnosus (Lactobacillus Acidophilus*) 2 tab PO DAILY [facility] Last Admin: 08/01/18 08:34 Dose: 2 tab Metoprolol Tartrate (Lopressor Iv*) 5 mg IV Q6H PRN PRN Reason: HR>120 Last Admin: 08/02/18 09:59 Dose: 5 mg Omeprazole (Prilosec Cap*) 20 mg PO DAILY@0730 [facility] Last Admin: 08/02/18 09:08 Dose: 20 mg Polyethylene Glycol/Electrolytes (Miralax*) 17 gm PO DAILY [facility] Last Admin: 08/02/18 09:10 Dose: 17 gm Riboflavin (Vitamin B-2 (Nf)) 200 mg PO BID [facility] Last Admin: 08/02/18 09:13 Dose: Not Given Vital Signs - 8 hr 08/02/18 08/02/18 04:06 09:08 Temperature 97.5 F Pulse Rate 88 100 Respiratory 16 Rate Blood Pressure 101/59 (mmHg) O2 Sat by Pulse 95 Oximetry Oxygen Devices in Use Now: None Appearance: Alert, partly up in bed. In good spirits. Looks comfortable. Eyes: No Scleral Icterus Ears/Nose/Mouth/Throat: Clear Oropharnyx, Mucous Membranes Moist, - - many missing teeth Cardiovascular: No Edema, - - irreg irreg Extremities: No Edema, No Clubbing, Cyanosis, - Skin: No Rash or Ulcers, No Nodules or Sclerosis, - Neurological: Alert and Oriented x 3, NL Sensation Result Diagrams: 08/02/18 06:35 08/02/18 06:35 Additional Lab and Data: Lab Results 07/21/18 07/21/18 Range/Units 08:23 08:29 WBC 17.1 H (3.5-10.8) 10^3/ul RBC 3.75 L (4.00-5.40) 10^6/ul Hgb 11.7 L (14.0-18.0) g/dl Hct 34 L (42-52) % MCV 91 (80-94) fL MCH 31 (27-31) pg MCHC 34 (31-36) g/dl RDW 13 (10.5-15) % Plt Count 347 (150-450) 10^3/ul MPV 6.9 L (7.4-10.4) fL Neut % (Auto) 89.3 % Lymph % (Auto) 3.0 % [place] % (Auto) 7.4 % Eos % (Auto) 0.1 % Baso % (Auto) 0.2 % Absolute Neuts (auto) 15.2 H (1.5-7.7) 10^3/ul Absolute Lymphs (auto) 0.5 L (1.0-4.8) 10^3/ul Absolute Monos (auto) 1.3 H (0-0.8) 10^3/ul Absolute Eos (auto) 0 (0-0.6) 10^3/ul Absolute Basos (auto) 0 (0-0.2) 10^3/ul Absolute Nucleated RBC 0 10^3/ul Nucleated RBC % 0 Influenza A (Rapid) Negative (Negative) Influenza B (Rapid) Negative (Negative) Microbiology and Other Data: Microbiology 07/21/18 08:23 Aerobic Blood Culture - Preliminary Blood Venous No Growth Day 1 Anaerobic Blood Culture - Preliminary No Growth Day 1 07/21/18 08:23 Aerobic Blood Culture - Preliminary Blood Venous No Growth Day 1 Anaerobic Blood Culture - Preliminary No Growth Day 1 07/21/18 11:56 Legionella Urinary Antigen - Final Urine Negative Legionella Antigen Streptococcus pneumoniae Ag Screen - Final Negative S. pneumo Antigen 07/21/18 14:00 Nasal Screen MRSA (PCR) - Final Nasal Mrsa Detected 07/21/18 11:56 Gram Stain - Final Sputum 07/21/18 08:13 Influenza Types A,B Antigen - Final Nasopharyngeal Specimen received for Influenza A/B Molecular testing Diagnostic Imaging: Patient Name: DEWAYNE FLANAGAN Medical Record#: [id number] Ordering Physician: Aicha GABRIEL Acct.#: [id number] : 1950 Age: 67 Sex: M Location: EMERGENCY DEPARTMENT Exam Date: 07/21/18803 ADM Status: REG ER Order Information: CHEST PA & LAT 2 VWS Accession Number: [id number] CPT: 22142 INDICATION: Cough, fever, chills, generalized weakness. COMPARISON: No relevant prior exams available on the [facility] PACS for comparison. TECHNIQUE: Sitting AP and lateral chest views. REPORT: Moderately large RIGHT subpulmonic pleural effusion with proportional partial atelectasis of the RIGHT lung. Mild patchy airspace consolidation within the residual aerated RIGHT lung and at the LEFT lung base. Negative for pneumothorax. Accounting for rightward rotation the heart, central pulmonary vasculature, and mediastinal contours are unremarkable. IMPRESSION: #. Moderately large subpulmonic RIGHT pleural effusion with proportional atelectasis. #. Probable bilateral inflammatory infiltrates/pneumonia. <Electronically signed by Anjum De Leon MD in OV> 07/21/18944 Dictated By: Anjum De Leon MD Dictated Date/Time: 07/21/18944 Transcribed Date/Time: 07/21/18941 Copy to: Patient Name: DEWAYNE FLANAGAN Medical Record#: [id number] Ordering Physician: Tanna GABRIEL Acct.#: [id number] : 1950 Age: 67 Sex: M Location: [address] [place] [address] - MEDICAL/TELEMETRY Exam Date: 07/23/18 1307 ADM Status: ADM IN Order Information: ABDOMEN (COMPLETE) 2 VWS Accession Number: [id number] CPT: 36573 INDICATION: Left lower quadrant abdominal pain. COMPARISON: There are no relevant prior studies available for comparison. TECHNIQUE: Supine and decubitus views of the abdomen were obtained. FINDINGS: There is mild gaseous distention of the small bowel. Air is also seen within the colon which is nondistended. There are few scattered air-fluid levels. No free intraperitoneal air is seen. There is a moderate amount retained stool present. 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 IMPRESSION: NONSPECIFIC GAS PATTERN CONSIDER FOLLOW-UP. <Electronically signed by Olayinka Naylor MD in OV> 07/23/18 1633 Dictated By: Olayinka Naylor MD Dictated Date/Time: 07/23/18 1633 Transcribed Date/Time: 07/23/18 1630 Copy to: Assess/Plan/Problems-Billing Assessment: This is a 67 year old male that presented to ED with 10 day complaint of fever, SOB, cough and chills, admitted for CAP/right pleural effusion. New complaint of LLQ abdominal pain x4days and periods of bradycardia overnight. - Patient Problems (1) Abdominal pain Current Visit: Yes Status: Acute Code(s): R10.9 - UNSPECIFIED ABDOMINAL PAIN SNOMED Code(s): 16023383 Comment: Likely due to GERD given improvement w/PPI and PRN Maalox (w/c will be replaced w/Tums per pt request) GB U/S neg 08/01/18. Possibly due to GERD, change to famotidine. (2) CAP (community acquired pneumonia) Current Visit: Yes Status: Acute Code(s): J18.9 - PNEUMONIA, UNSPECIFIED ORGANISM SNOMED Code(s): 544667124 Comment: -D/Cd Doxycylcine---completed 10 day therapy (3) PAF (paroxysmal atrial fibrillation) Current Visit: Yes Status: Acute Code(s): I48.0 - PAROXYSMAL ATRIAL FIBRILLATION SNOMED Code(s): 164308600 Comment: D/C Digoxin 08/02, increase carvedilol to 9.375 mg bid start 08/02 PM. Records from [facility] in 2010 showed cardiac cath with EF 60% and normal coronary angiogram with dominant RCA, no MR and no . - Notes from Dr Higgins (legal adviser) - 11/25 doesn't mention any Warfarin allergy. - Continue Lovenox and Aspirin 81mg. - [id number] is 2 - may be a candidate for NOAC on discharge, will defer decision to PCP. 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 There was also concern for myotonic distrophy, but EMG was negative. - Recommended creatine, CoQ10, riboflavin to help suspected mitochondrial condition. Note thenar mucscle atrophy BL. Accepted to [facility] for rehab on 08/04. Status and Disposition: -D/C with [facility] placement pending
[2018-08-02] MEDS ORDERED: Carvedilol TAB* 3.125 MG PO ONE ×2 (10:56→13:17)
[2018-08-02] MEDS: Lactobacillus Acidophilus* 1 TAB PO SCH (11:00)
[2018-08-02] MEDS: Enoxaparin(*) 150 MG/ML 1 ML SYRINGE SUBCUT SCH ×2 (11:27→23:57)
[2018-08-02] MEDS: Calcium Carbonate CHEW TAB* 500 MG (TUMS) PO PRN ×2 (15:45→20:14)
[2018-08-02] MEDS ORDERED: Carvedilol TAB* 6.25 MG PO SCH (21:00)
[2018-08-03] MEDS: Calcium Carbonate CHEW TAB* 500 MG (TUMS) PO PRN ×4 (00:03→20:34)
[2018-08-03] MEDS: Acetaminophen TAB* 325 MG PO PRN ×3 (06:32→20:21)
[2018-08-03] MEDS: Aspirin EC TAB* 81 MG TAB.EC PO SCH (10:53)
[2018-08-03] MEDS: guaiFENesin ER TAB 600 MG PO SCH ×2 (10:53→20:21)
[2018-08-03] MEDS: Famotidine TAB* 20 MG PO SCH (10:53)
[2018-08-03] MEDS: Carvedilol TAB* 6.25 MG PO SCH ×3 (10:53→20:21)
[2018-08-03] MEDS: Polyethylene Glycol 3350* 17 GM PACKET PO SCH (11:06)
[2018-08-03] MEDS: Riboflavin (B2) (NF) 100 MG TAB PO SCH ×2 (11:07→20:34)
[2018-08-03] MEDS: Coenzyme Q10 (NF) ** ENTER STREGNTH IN LABEL DIRECTIONS PO SCH (11:07)
--- NOTE | 2018-08-03 11:42 | PN ---
Subjective Date of Service: 08/03/18 Interval History: Appetite OK, ate all of his breakfast today. No bowel c/o. Mild cough. Family History: Unchanged from Admission Social History: Unchanged from Admission Past Medical History: Unchanged from Admission Objective Active Medications: Acetaminophen (Tylenol Tab*) 650 mg PO Q6H PRN PRN Reason: fever/discomfort Last Admin: 08/03/18 06:32 Dose: 650 mg Albuterol (Ventolin Hfa Inhaler*) 2 puff INH Q4H PRN PRN Reason: SOB/WHEEZING Albuterol/Ipratropium (Duoneb (Albuterol 2.5 Mg/Ipratropium 0.5 Mg)) 1 neb INH Q6H PRN PRN Reason: SOB/WHEEZING Aspirin (Aspirin Ec Tab*) 81 mg PO DAILY [facility] Last Admin: 08/03/18 10:53 Dose: 81 mg Calcium Carbonate (Tums*) 500 mg PO Q4H PRN PRN Reason: Breakthrough dyspepsia/abd dis Last Admin: 08/03/18 06:32 Dose: 500 mg Carvedilol (Coreg Tab*) 12.5 mg PO BID [facility] Last Admin: 08/03/18 11:07 Dose: 12.5 mg Coenzyme Q10 (Coenzyme Q10 (Nf)) 1 cap PO DAILY [facility] Last Admin: 08/03/18 11:07 Dose: Not Given Famotidine (Pepcid Tab*) 20 mg PO DAILY [facility] Last Admin: 08/03/18 10:53 Dose: 20 mg Guaifenesin (Mucinex*) 600 mg PO BID [facility] Last Admin: 08/03/18 10:53 Dose: 600 mg Metoprolol Tartrate (Lopressor Iv*) 5 mg IV Q6H PRN PRN Reason: HR>120 Last Admin: 08/02/18 09:59 Dose: 5 mg Polyethylene Glycol/Electrolytes (Miralax*) 17 gm PO DAILY [facility] Last Admin: 08/03/18 11:06 Dose: 17 gm Riboflavin (Vitamin B-2 (Nf)) 200 mg PO BID [facility] Last Admin: 08/03/18 11:07 Dose: Not Given Vital Signs - 8 hr 08/03/18 08/03/18 03:41 06:53 Temperature 98.5 F 98.2 F Pulse Rate 90 104 Respiratory 19 24 Rate Blood Pressure 106/58 89/66 (mmHg) O2 Sat by Pulse 97 95 Oximetry Oxygen Devices in Use Now: None Appearance: Alert, partly up in bed. In good spirits. Looks comfortable. Eyes: No Scleral Icterus Respiratory: Symmetrical Chest Expansion and Respiratory Effort, Clear to Auscultation, Clear to Percussion Cardiovascular: No Edema, - - irreg Extremities: No Edema, No Clubbing, Cyanosis, - Skin: No Rash or Ulcers, No Nodules or Sclerosis, - Neurological: Alert and Oriented x 3, NL Sensation Result Diagrams: 08/02/18 06:35 08/02/18 06:35 Additional Lab and Data: Lab Results 07/21/18 07/21/18 Range/Units 08:23 08:29 WBC 17.1 H (3.5-10.8) 10^3/ul RBC 3.75 L (4.00-5.40) 10^6/ul Hgb 11.7 L (14.0-18.0) g/dl Hct 34 L (42-52) % MCV 91 (80-94) fL MCH 31 (27-31) pg MCHC 34 (31-36) g/dl RDW 13 (10.5-15) % Plt Count 347 (150-450) 10^3/ul MPV 6.9 L (7.4-10.4) fL Neut % (Auto) 89.3 % Lymph % (Auto) 3.0 % [place] % (Auto) 7.4 % Eos % (Auto) 0.1 % Baso % (Auto) 0.2 % Absolute Neuts (auto) 15.2 H (1.5-7.7) 10^3/ul Absolute Lymphs (auto) 0.5 L (1.0-4.8) 10^3/ul Absolute Monos (auto) 1.3 H (0-0.8) 10^3/ul Absolute Eos (auto) 0 (0-0.6) 10^3/ul Absolute Basos (auto) 0 (0-0.2) 10^3/ul Absolute Nucleated RBC 0 10^3/ul Nucleated RBC % 0 Influenza A (Rapid) Negative (Negative) Influenza B (Rapid) Negative (Negative) Microbiology and Other Data: Microbiology 07/21/18 08:23 Aerobic Blood Culture - Preliminary Blood Venous No Growth Day 1 Anaerobic Blood Culture - Preliminary No Growth Day 1 07/21/18 08:23 Aerobic Blood Culture - Preliminary Blood Venous No Growth Day 1 Anaerobic Blood Culture - Preliminary No Growth Day 1 07/21/18 11:56 Legionella Urinary Antigen - Final Urine Negative Legionella Antigen Streptococcus pneumoniae Ag Screen - Final Negative S. pneumo Antigen 07/21/18 14:00 Nasal Screen MRSA (PCR) - Final Nasal Mrsa Detected 07/21/18 11:56 Gram Stain - Final Sputum 07/21/18 08:13 Influenza Types A,B Antigen - Final Nasopharyngeal Specimen received for Influenza A/B Molecular testing Diagnostic Imaging: Patient Name: DEWAYNE FLANAGAN Medical Record#: [id number] Ordering Physician: Aicha GABRIEL Acct.#: [id number] : 1950 Age: 67 Sex: M Location: EMERGENCY DEPARTMENT Exam Date: 07/21/18803 ADM Status: REG ER Order Information: CHEST PA & LAT 2 VWS Accession Number: [id number] CPT: 07440 INDICATION: Cough, fever, chills, generalized weakness. COMPARISON: No relevant prior exams available on the [facility] [place]. TECHNIQUE: Sitting AP and lateral chest views. REPORT: Moderately large RIGHT subpulmonic pleural effusion with proportional partial atelectasis of the RIGHT lung. Mild patchy airspace consolidation within the residual aerated RIGHT lung and at the LEFT lung base. Negative for pneumothorax. Accounting for rightward rotation the heart, central pulmonary vasculature, and mediastinal contours are unremarkable. IMPRESSION: #. Moderately large subpulmonic RIGHT pleural effusion with proportional atelectasis. #. Probable bilateral inflammatory infiltrates/pneumonia. <Electronically signed by Anjum De Leon MD in OV> 07/21/18944 Dictated By: Anjum De Leon MD Dictated Date/Time: 07/21/18944 Transcribed Date/Time: 07/21/18941 Copy to: Patient Name: DEWAYNE FLANAGAN Medical Record#: [id number] Ordering Physician: Tanna GABRIEL Acct.#: [id number] : 1950 Age: 67 Sex: M Location: [address] [place] [address] MEDICAL/TELEMETRY Exam Date: 07/23/18 1307 ADM Status: ADM IN Order Information: ABDOMEN (COMPLETE) 2 VWS Accession Number: [id number] CPT: 15880 INDICATION: Left lower quadrant abdominal pain. COMPARISON: There are no relevant prior studies available for comparison. TECHNIQUE: Supine and decubitus views of the abdomen were obtained. FINDINGS: There is mild gaseous distention of the small bowel. Air is also seen within the colon which is nondistended. There are few scattered air-fluid levels. No free intraperitoneal air is seen. There is a moderate amount retained stool present. 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 IMPRESSION: NONSPECIFIC GAS PATTERN CONSIDER FOLLOW-UP. <Electronically signed by Olayinka Naylor MD in [place]> 07/23/18 1633 Dictated By: Olayinka Naylor MD Dictated Date/Time: 07/23/18 1633 Transcribed Date/Time: 07/23/18 1630 Copy to: Assess/Plan/Problems-Billing Assessment: This is a 67 year old male that presented to ED with 10 day complaint of fever, SOB, cough and chills, admitted for CAP/right pleural effusion. New complaint of LLQ abdominal pain x4days and periods of bradycardia overnight. - Patient Problems (1) Abdominal pain Current Visit: Yes Status: Acute Code(s): R10.9 - UNSPECIFIED ABDOMINAL PAIN SNOMED Code(s): 20982956 Comment: GB U/S neg 08/01/18. Continue famotidine. (2) CAP (community acquired pneumonia) Current Visit: Yes Status: Acute Code(s): J18.9 - PNEUMONIA, UNSPECIFIED ORGANISM SNOMED Code(s): 399742807 Comment: -D/Cd Doxycylcine---completed 10 day therapy (3) PAF (paroxysmal atrial fibrillation) Current Visit: Yes Status: Acute Code(s): I48.0 - PAROXYSMAL ATRIAL FIBRILLATION SNOMED Code(s): 044893514 Comment: Continue carvedilol to 12.5 mg bid started 08/02 PM. HR 90-110 range. Asymptomatic. Records from [facility] in 2010 showed cardiac cath with EF 60% and normal coronary angiogram with dominant RCA, no MR and no . 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 - Continue Lovenox and Aspirin 81mg. - DUNOf4Oydp is 2 - may be a candidate for NOAC on discharge, will defer decision to PCP. 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 There was also concern for myotonic distrophy, but EMG was negative. - Recommended creatine, CoQ10, riboflavin to help suspected mitochondrial condition. Note thenar mucscle atrophy BL. Accepted to [facility] for rehab on 08/04. Status and Disposition: -D/C with [facility] placement pending
--- NOTE | 2018-08-03 18:29 | PN ---
Progress Note - Progress Note Date of Service: 08/03/18 Note: Time spent on discharge including exam of pt, discussion with patient, nurse, CM , review of EMR and preparation of discharge documents is 35 minutes.
--- NOTE | 2018-08-03 21:48 | TRS ---
CC: Dr. Fermín Forman * TRANSFER SUMMARY: DATE OF ADMISSION: 07/21/18 DATE OF TRANSFER: 08/04/18 HISTORY OF PRESENT ILLNESS: This 67-year-old man was admitted with a chief complaint of 10 days of fever, cough, fatigue, and shortness of breath. He was a resident of the [facility]. The history is detailed in the admission note. Chest x-ray showed moderately large subpulmonic right pleural effusion with atelectasis and bilateral inflammatory infiltrates, felt clinically to be pneumonia. He was treated with piperacillin-tazobactam. He got 1 dose of levofloxacin in the emergency room. He did well in the hospital. We completed therapy with doxycycline and had 10 days of antibiotics. His respiratory status was quite stable at the end of his hospital stay. He was on room air, saturating 95% to 97%. Records were received from other facilities showing that he may have a mitochondrial disorder. He is known to have some type of idiopathic progressive neuropathy, which could be based on mitochondrial disease. Apparently, he has an axonal neuropathy. The outside neurologist recommended coenzyme Q right before even treating. The patient is transferred to [facility] for rehabilitation. DISCHARGE DIAGNOSES: 1. Pneumonia. 2. Paroxysmal atrial fibrillation. 3. Idiopathic progressive neuropathy. TRANSFER MEDICATIONS: 1. Aspirin 81 mg daily. 2. Calcium carbonate 500 mg every 4 hours p.r.n. 3. Carvedilol 12.5 mg b.i.d. 4. Coenzyme Q 1 capsule daily. 5. Famotidine 20 mg daily. 6. Guaifenesin ER 600 mg b.i.d. 7. Polyethylene glycol 17 g daily. 8. Riboflavin 200 mg b.i.d. 9. Acetaminophen 650 mg as needed every 4 hours. 10. Albuterol powder 2 puffs inhaled every 4 hours p.r.n. CONDITION ON DISCHARGE: Stable. DISPOSITION ON DISCHARGE: Transfer to [facility]. [id number]/[facility] #: [id number] LYNN
[2018-08-04] MEDS: Acetaminophen TAB* 325 MG PO PRN (06:57)
[2018-08-04] MEDS: Calcium Carbonate CHEW TAB* 500 MG (TUMS) PO PRN (06:57)
[2018-08-04] MEDS: Polyethylene Glycol 3350* 17 GM PACKET PO SCH (07:50)
[2018-08-04] MEDS: Carvedilol TAB* 6.25 MG PO SCH (07:51)
[2018-08-04] MEDS: Famotidine TAB* 20 MG PO SCH (07:51)
[2018-08-04] MEDS: guaiFENesin ER TAB 600 MG PO SCH (07:51)
[2018-08-04] MEDS: Aspirin EC TAB* 81 MG TAB.EC PO SCH (07:51)
[2018-08-04] MEDS: Coenzyme Q10 (NF) ** ENTER STREGNTH IN LABEL DIRECTIONS PO SCH (07:53)
[2018-08-04] MEDS: Riboflavin (B2) (NF) 100 MG TAB PO SCH (07:53)
[2018-08-04 09:48] VITALS: BP 91/55
== END 2018-08-04 10:00 | DRG 193 ==
LOC: ED 07:49 → MEDTELE 10:58
PROVIDERS: ADMIT Internal Medicine; ATTEND Internal Medicine
DX: J18.9 Pneumonia, unspecified organism (principal); J96.91 Respiratory failure, unspecified with hypoxia; J90 Pleural effusion, not elsewhere classified; I50.30 Unspecified diastolic (congestive) heart failure; J98.11 Atelectasis; G60.3 Idiopathic progressive neuropathy; I11.0 Hypertensive heart disease with heart failure; I48.0 Paroxysmal atrial fibrillation; I95.9 Hypotension, unspecified; R13.10 Dysphagia, unspecified; J45.909 Unspecified asthma, uncomplicated; B95.62 Methicillin resistant Staphylococcus aureus infection as the cause of diseases classified elsewhere; G31.9 Degenerative disease of nervous system, unspecified; M19.90 Unspecified osteoarthritis, unspecified site; R10.9 Unspecified abdominal pain; K21.9 Gastro-esophageal reflux disease without esophagitis; I45.10 Unspecified right bundle-branch block; Z79.1 Long term (current) use of non-steroidal anti-inflammatories (NSAID); Z79.82 Long term (current) use of aspirin; Z79.51 Long term (current) use of inhaled steroids; Z79.899 Other long term (current) drug therapy; Z80.9 Family history of malignant neoplasm, unspecified
CPT/HCPCS: 36415; 71045; 71046; 71250; 74019; 76604; 76705; 80048; 80053; 80074; 80162; 81003; 83605; 83735; 83880; 84100; 84484; 85025; 85027; 86140; 86705; 86709; 86803; 87040; 87070; 87077; 87205; 87641; 87899; 93005; 93306; 94640; 99284; A9270-GY; G8978-GP-CK; G8979-GP-CI; G8987-GO-CK; G8988-GO-CI; J0456; J0696; J1160; J1644; J1650; J2543; J3490

== ENCOUNTER 2020-08-24 11:05 | Inpatient (IN) ==
[2020-08-24] MEDS ORDERED: HYDROcodone/ACETAMIN 5/325 mg TAB PO ONE (12:37)
[2020-08-24] MEDS ORDERED: Azithromycin 500 mg/250 ml NS 500 MG/250 ML BAG IVPB ONE (12:41)
[2020-08-24] MEDS ORDERED: cefTRIAXone 1 gm/50 mL NS BAG 1 GM/50 ML BAG IV ONE (12:41)
[2020-08-24] MEDS ORDERED: NS 0.9% 1000 ml BAG 1,000 ML IV.FLUID IV ONE (12:41)
[2020-08-24 13:49] LABS: ABS Lymphocytes 0.5 10^3/ul (1.0-4.8); ABS Monocytes 0.9 10^3/ul (0-0.8); Hematocrit 43 % (42-52); Hemoglobin 14.3 g/dL (14.0-18.0); Lymphocyte % 3.7 %; Mean Corpuscular HGB Conc 33 g/dL (31-36); Mean Corpuscular Hemoglobin 30 pg (27-31); Mean Corpuscular Volume 91 fL (80-94); Mean Platelet Volume 8.5 fL (7.4-10.4); Platelet Count 130 10^3/uL (150-450); Red Blood Count 4.74 10^6 /uL (4.18-5.48); Red Cell Distribution Width 14 % (10-15); White Blood Count 12.4 10^3/uL (3.5-10.8)
[2020-08-24 14:08] LABS: ALT 27 U/L (7-52); AST 49 U/L (13-39); Albumin 3.7 g/dL (3.2-5.2); Albumin/Globulin Ratio 1.1 (1-3); Alkaline Phosphatase 52 U/L (34-104); Anion Gap 6 mmol/L (2-11); BUN/Creatinine Ratio 19.6 (8-20); Blood Urea Nitrogen 18 mg/dL (6-24); C Reactive Protein 288.29 mg/L (<8.01); CO2 Carbon Dioxide 26 mmol/L (22-32); Calcium 9.5 mg/dL (8.6-10.3); Chloride 99 mmol/L (101-111); EGFR Non-African American 81.8 (>60); Globulin 3.3 g/dL (2-4); Glucose 112 mg/dL (70-100); Potassium 3.7 mmol/L (3.5-5.0); Sodium 131 mmol/L (135-145)
[2020-08-24 14:13] LABS: Troponin I 0.04 ng/mL (<0.03)
[2020-08-24 14:19] LABS: Activated Partial Thrombo Time 38.2 seconds (26.0-38.0); INR 1.68 (0.82-1.09)
[2020-08-24] MEDS ORDERED: NS 0.9% 1000 ml BAG 1,000 ML IV ONE (16:12)
[2020-08-24 17:38] LABS: Troponin I 0.04 ng/mL (<0.03)
[2020-08-24 19:22] LABS: Magnesium 1.8 mg/dL (1.9-2.7)
[2020-08-24 19:59] LABS: Troponin I 0.04 ng/mL (<0.03)
[2020-08-24] MEDS ORDERED: Albuterol HFA INHALER 8 gm MDI INH PRN (20:29)
[2020-08-24] MEDS: Riboflavin (B2) 100 mg TAB(NF) PO SCH (21:42)
[2020-08-24 22:36] LABS: Troponin I 0.04 ng/mL (<0.03)
[2020-08-25 06:11] LABS: ABS Lymphocytes 0.4 10^3/ul (1.0-4.8); ABS Monocytes 0.8 10^3/ul (0-0.8); Hematocrit 37 % (42-52); Hemoglobin 12.8 g/dL (14.0-18.0); Lymphocyte % 3.5 %; Mean Corpuscular HGB Conc 35 g/dL (31-36); Mean Corpuscular Hemoglobin 31 pg (27-31); Mean Corpuscular Volume 89 fL (80-94); Mean Platelet Volume 8.7 fL (7.4-10.4); Platelet Count 119 10^3/uL (150-450); Red Blood Count 4.18 10^6 /uL (4.18-5.48); Red Cell Distribution Width 14 % (10-15); White Blood Count 12.2 10^3/uL (3.5-10.8)
[2020-08-25 06:31] LABS: BUN/Creatinine Ratio 21.1 (8-20); Calcium 8.6 mg/dL (8.6-10.3); EGFR African American 133.5 (>60); EGFR Non-African American 110.3 (>60); Indirect Bilirubin 0.4 mg/dL (0.3-1.0); Potassium 3.6 mmol/L (3.5-5.0); Total Bilirubin 0.6 mg/dL (0.2-1.0)
[2020-08-25] MEDS: Riboflavin (B2) 100 mg TAB(NF) PO SCH ×2 (09:25→21:02)
[2020-08-25] MEDS: Nystatin TOP POWDER 15 GM BTL TOPICAL SCH ×2 (15:12→21:02)
[2020-08-25] MEDS: Calcium Carb (TUMS) 500 mg CHEW TAB PO PRN (21:24)
[2020-08-26 05:58] LABS: ABS Lymphocytes 0.3 10^3/ul (1.0-4.8); ABS Monocytes 0.8 10^3/ul (0-0.8); ABS Neutrophils 12.2 10^3/ul (1.5-7.7); Hematocrit 38 % (42-52); Lymphocyte % 2.5 %; Mean Corpuscular HGB Conc 34 g/dL (31-36); Mean Corpuscular Hemoglobin 31 pg (27-31); Mean Corpuscular Volume 90 fL (80-94); Mean Platelet Volume 8.8 fL (7.4-10.4); Platelet Count 143 10^3/uL (150-450); Red Blood Count 4.25 10^6 /uL (4.18-5.48); Red Cell Distribution Width 14 % (10-15); White Blood Count 13.4 10^3/uL (3.5-10.8)
[2020-08-26 07:31] LABS: Calcium 9.3 mg/dL (8.6-10.3)
[2020-08-26 07:37] LABS: BUN/Creatinine Ratio 24.2 (8-20); EGFR African American 156.1 (>60)
[2020-08-26] MEDS: Senna TAB 8.6 mg TAB PO PRN (10:04)
[2020-08-26] MEDS: Nystatin TOP POWDER 15 GM BTL TOPICAL SCH ×3 (10:04→21:26)
[2020-08-26] MEDS: Riboflavin (B2) 100 mg TAB(NF) PO SCH ×2 (10:06→22:14)
[2020-08-26] MEDS: Calcium Carb (TUMS) 500 mg CHEW TAB PO PRN ×2 (10:57→22:12)
[2020-08-26] MEDS: Magnesium Hydroxide LIQ 30 ML UDC PO PRN ×2 (16:45→22:39)
[2020-08-27 06:51] LABS: ABS Lymphocytes 0.3 10^3/ul (1.0-4.8); ABS Monocytes 0.7 10^3/ul (0-0.8); ABS Neutrophils 12.5 10^3/ul (1.5-7.7); Hematocrit 38 % (42-52); Hemoglobin 12.9 g/dL (14.0-18.0); Mean Corpuscular HGB Conc 34 g/dL (31-36); Mean Corpuscular Hemoglobin 31 pg (27-31); Mean Corpuscular Volume 90 fL (80-94); Mean Platelet Volume 8.5 fL (7.4-10.4); Platelet Count 188 10^3/uL (150-450); Red Blood Count 4.16 10^6 /uL (4.18-5.48); Red Cell Distribution Width 14 % (10-15); White Blood Count 13.5 10^3/uL (3.5-10.8)
[2020-08-27 07:05] LABS: BUN/Creatinine Ratio 33.9 (8-20); Calcium 8.8 mg/dL (8.6-10.3); EGFR African American 165.3 (>60); EGFR Non-African American 136.6 (>60)
[2020-08-27] MEDS ORDERED: NS 0.9% 1000 ml BAG 1,000 ML IV SCH (09:30)
[2020-08-27] MEDS: Magnesium Hydroxide LIQ 30 ML UDC PO PRN (09:37)
[2020-08-27] MEDS: Riboflavin (B2) 100 mg TAB(NF) PO SCH (10:54)
[2020-08-27] MEDS: COENZYME Q10 200 MG PO SCH (10:54)
[2020-08-27] MEDS: Nystatin TOP POWDER 15 GM BTL TOPICAL SCH ×3 (10:56→20:56)
[2020-08-27] MEDS: Multivitamins/Minerals TAB PO SCH (12:36)
[2020-08-27] MEDS: RIBOFLAVIN 100 MG PO SCH (20:57)
[2020-08-28 08:32] LABS: ABS Lymphocytes 0.3 10^3/ul (1.0-4.8); ABS Monocytes 0.9 10^3/ul (0-0.8); Eosinophil % 0.1 %; Hematocrit 42 % (42-52); Hemoglobin 14.1 g/dL (14.0-18.0); Lymphocyte % 2.1 %; Mean Corpuscular HGB Conc 34 g/dL (31-36); Mean Corpuscular Hemoglobin 32 pg (27-31); Mean Corpuscular Volume 94 fL (80-94); Mean Platelet Volume 8.9 fL (7.4-10.4); Nucleated Red Blood Cells % 0.2; Platelet Count 293 10^3/uL (150-450); Red Blood Count 4.47 10^6 /uL (4.18-5.48); Red Cell Distribution Width 14 % (10-15); White Blood Count 14.2 10^3/uL (3.5-10.8)
[2020-08-28 09:04] LABS: Calcium 8.8 mg/dL (8.6-10.3); EGFR African American 162.1 (>60); Magnesium 2.3 mg/dL (1.9-2.7); Potassium 4.5 mmol/L (3.5-5.0)
[2020-08-28] MEDS: Multivitamins/Minerals TAB PO SCH (10:04)
[2020-08-28] MEDS: RIBOFLAVIN 100 MG PO SCH ×2 (10:04→21:11)
[2020-08-28] MEDS: COENZYME Q10 200 MG PO SCH (10:04)
[2020-08-28] MEDS: Nystatin TOP POWDER 15 GM BTL TOPICAL SCH ×3 (10:09→21:10)
[2020-08-28] MEDS: Calcium Carb (TUMS) 500 mg CHEW TAB PO PRN ×3 (10:16→23:59)
[2020-08-29 07:22] LABS: Calcium 8.9 mg/dL (8.6-10.3); EGFR African American 165.3 (>60); EGFR Non-African American 136.6 (>60); Potassium 4.5 mmol/L (3.5-5.0)
[2020-08-29 07:48] LABS: ABS Lymphocytes 0.3 10^3/ul (1.0-4.8); ABS Monocytes 0.9 10^3/ul (0-0.8); ABS Neutrophils 12.1 10^3/ul (1.5-7.7); Hematocrit 40 % (42-52); Hemoglobin 13.3 g/dL (14.0-18.0); Lymphocyte % 2.5 %; Mean Corpuscular HGB Conc 33 g/dL (31-36); Mean Corpuscular Hemoglobin 30 pg (27-31); Mean Corpuscular Volume 91 fL (80-94); Mean Platelet Volume 7.8 fL (7.4-10.4); Nucleated Red Blood Cells % 0.1; Platelet Count 311 10^3/uL (150-450); Red Blood Count 4.37 10^6 /uL (4.18-5.48); Red Cell Distribution Width 14 % (10-15); White Blood Count 13.4 10^3/uL (3.5-10.8)
[2020-08-29] MEDS: Nystatin TOP POWDER 15 GM BTL TOPICAL SCH ×3 (09:15→20:50)
[2020-08-29] MEDS: Multivitamins/Minerals TAB PO SCH (09:15)
[2020-08-29] MEDS: RIBOFLAVIN 100 MG PO SCH ×2 (09:16→20:51)
[2020-08-29] MEDS: COENZYME Q10 200 MG PO SCH (18:24)
[2020-08-29] MEDS ORDERED: NS 0.9% 500 ml BAG 500 ML IV ONE (18:40)
[2020-08-29] MEDS: Calcium Carb (TUMS) 500 mg CHEW TAB PO PRN (20:50)
[2020-08-30] MEDS: Calcium Carb (TUMS) 500 mg CHEW TAB PO PRN ×2 (07:45→20:51)
[2020-08-30] MEDS: Multivitamins/Minerals TAB PO SCH (07:45)
[2020-08-30] MEDS: Nystatin TOP POWDER 15 GM BTL TOPICAL SCH ×3 (07:47→20:51)
[2020-08-30] MEDS: RIBOFLAVIN 100 MG PO SCH ×2 (07:47→20:51)
[2020-08-30] MEDS: COENZYME Q10 200 MG PO SCH (07:47)
[2020-08-30 07:58] LABS: ABS Lymphocytes 0.4 10^3/ul (1.0-4.8); ABS Monocytes 0.7 10^3/ul (0-0.8); Eosinophil % 0.1 %; Hematocrit 40 % (42-52); Hemoglobin 13.5 g/dL (14.0-18.0); Lymphocyte % 3.1 %; Mean Corpuscular HGB Conc 34 g/dL (31-36); Mean Corpuscular Hemoglobin 30 pg (27-31); Mean Corpuscular Volume 90 fL (80-94); Nucleated Red Blood Cells % 0.1; Platelet Count 358 10^3/uL (150-450); Red Blood Count 4.43 10^6 /uL (4.18-5.48); Red Cell Distribution Width 14 % (10-15); White Blood Count 14.2 10^3/uL (3.5-10.8)
[2020-08-30 08:08] LABS: BUN/Creatinine Ratio 37.7 (8-20); Calcium 8.6 mg/dL (8.6-10.3); EGFR African American 159.1 (>60); EGFR Non-African American 131.5 (>60); Potassium 4.4 mmol/L (3.5-5.0)
[2020-08-30] MEDS ORDERED: Azithromycin 500 mg/250 ml NS 500 MG/250 ML BAG IVPB ONE (11:00)
[2020-08-30] MEDS: cefTRIAXone 1 gm/50 mL NS BAG 1 GM/50 ML BAG IVPB SCH (12:05)
[2020-08-30] MEDS ORDERED: Furosemide 20 mg/2 ml IV VIAL IV SLOW PU ONE (13:20)
[2020-08-30 14:50] LABS: Urine Appearance Clear; Urine Bilirubin Negative (Negative); Urine Blood Negative (Negative); Urine Color Yellow; Urine Glucose Negative (Negative); Urine Ketones Negative (Negative); Urine Nitrite Negative (Negative); Urine Protein Negative (Negative); Urine Specific Gravity 1.008 (1.010-1.030); Urine Urobilinogen Negative (Negative)
[2020-08-30] MEDS ORDERED: Remdesivir 100 mg Vial 200 MG in NS 0.9% 250 ml 210 ML IV ONE (15:30)
[2020-08-31 06:15] LABS: Hematocrit 38 % (42-52); Hemoglobin 13.2 g/dL (14.0-18.0); Mean Corpuscular HGB Conc 35 g/dL (31-36); Mean Corpuscular Hemoglobin 31 pg (27-31); Mean Corpuscular Volume 89 fL (80-94); Mean Platelet Volume 7.2 fL (7.4-10.4); Platelet Count 363 10^3/uL (150-450); Red Blood Count 4.31 10^6 /uL (4.18-5.48); Red Cell Distribution Width 14 % (10-15); White Blood Count 17.4 10^3/uL (3.5-10.8)
[2020-08-31 06:32] LABS: Albumin 2.6 g/dL (3.2-5.2); Albumin/Globulin Ratio 0.8 (1-3); BUN/Creatinine Ratio 40.7 (8-20); Calcium 8.3 mg/dL (8.6-10.3); EGFR African American 165.3 (>60); EGFR Non-African American 136.6 (>60); Globulin 3.3 g/dL (2-4); Potassium 4.3 mmol/L (3.5-5.0); Total Bilirubin 0.5 mg/dL (0.2-1.0); Total Protein 5.9 g/dL (6.4-8.9)
[2020-08-31 08:25] LABS: ABS Lymphocytes 0.4 10^3/ul (1.0-4.8); ABS Monocytes 0.9 10^3/ul (0-0.8); ABS Neutrophils 16.1 10^3/ul (1.5-7.7); Eosinophil % 0.1 %; Lymphocyte % 2.3 %
[2020-08-31] MEDS: COENZYME Q10 200 MG PO SCH (09:00)
[2020-08-31] MEDS: Multivitamins/Minerals TAB PO SCH (09:01)
[2020-08-31] MEDS: RIBOFLAVIN 100 MG PO SCH ×2 (09:03→21:43)
[2020-08-31] MEDS: Nystatin TOP POWDER 15 GM BTL TOPICAL SCH ×3 (09:05→21:46)
[2020-08-31] MEDS: cefTRIAXone 1 gm/50 mL NS BAG 1 GM/50 ML BAG IVPB SCH ×2 (10:45→10:56)
[2020-08-31] MEDS: Calcium Carb (TUMS) 500 mg CHEW TAB PO PRN ×3 (11:26→23:45)
[2020-08-31] MEDS ORDERED: Furosemide 20 mg/2 ml IV VIAL IV SLOW PU ONE (16:00)
[2020-08-31] MEDS: Remdesivir 100 mg Vial 100 MG in NS 0.9% 250 ml 230 ML IV SCH (21:50)
[2020-09-01] MEDS: Calcium Carb (TUMS) 500 mg CHEW TAB PO PRN ×3 (05:53→22:15)
[2020-09-01 07:13] LABS: Hematocrit 41 % (42-52); Hemoglobin 13.6 g/dL (14.0-18.0); Mean Corpuscular HGB Conc 33 g/dL (31-36); Mean Corpuscular Hemoglobin 30 pg (27-31); Mean Corpuscular Volume 90 fL (80-94); Mean Platelet Volume 7.5 fL (7.4-10.4); Platelet Count 379 10^3/uL (150-450); Red Blood Count 4.55 10^6 /uL (4.18-5.48); Red Cell Distribution Width 14 % (10-15); White Blood Count 13.3 10^3/uL (3.5-10.8)
[2020-09-01 07:39] LABS: BUN/Creatinine Ratio 38.6 (8-20); EGFR Non-African American 142.2 (>60); Potassium 4.3 mmol/L (3.5-5.0)
[2020-09-01 08:44] LABS: Calcium 8.3 mg/dL (8.6-10.3)
[2020-09-01] MEDS: COENZYME Q10 200 MG PO SCH (08:50)
[2020-09-01] MEDS: Multivitamins/Minerals TAB PO SCH (08:50)
[2020-09-01] MEDS: RIBOFLAVIN 100 MG PO SCH ×2 (08:50→22:16)
[2020-09-01] MEDS: Nystatin TOP POWDER 15 GM BTL TOPICAL SCH ×3 (08:50→22:16)
[2020-09-01 10:06] LABS: ABS Basophils 0.1 10^3/ul (0-0.2); ABS Eosinophils 0.2 10^3/ul (0-0.6); ABS Lymphocytes 0.9 10^3/ul (1.0-4.8); ABS Monocytes 0.9 10^3/ul (0-0.8); ABS Neutrophils 11.2 10^3/ul (1.5-7.7); Eosinophil % 1.5 %; Lymphocyte % 6.8 %
[2020-09-01] MEDS: cefTRIAXone 1 gm/50 mL NS BAG 1 GM/50 ML BAG IVPB SCH (11:35)
[2020-09-01] MEDS ORDERED: Furosemide 40 mg/4 ml IV VIAL IV SLOW PU ONE (15:02)
[2020-09-01 18:14] LABS: Magnesium 2.1 mg/dL (1.9-2.7)
[2020-09-01] MEDS: Remdesivir 100 mg Vial 100 MG in NS 0.9% 250 ml 230 ML IV SCH (22:16)
[2020-09-02] MEDS: Calcium Carb (TUMS) 500 mg CHEW TAB PO PRN ×4 (05:23→20:43)
[2020-09-02 06:55] LABS: BUN/Creatinine Ratio 34.3 (8-20); Calcium 8.7 mg/dL (8.6-10.3); EGFR African American 142.7 (>60); Potassium 4.2 mmol/L (3.5-5.0)
[2020-09-02] MEDS: Multivitamins/Minerals TAB PO SCH (08:34)
[2020-09-02] MEDS: RIBOFLAVIN 100 MG PO SCH ×2 (08:35→20:40)
[2020-09-02] MEDS: COENZYME Q10 200 MG PO SCH (10:54)
[2020-09-02] MEDS: cefTRIAXone 1 gm/50 mL NS BAG 1 GM/50 ML BAG IVPB SCH (10:54)
[2020-09-02] MEDS: Nystatin TOP POWDER 15 GM BTL TOPICAL SCH ×3 (10:58→22:05)
[2020-09-02] MEDS ORDERED: Furosemide 40 mg/4 ml IV VIAL IV SLOW PU ONE (14:43)
[2020-09-02] MEDS ORDERED: Furosemide 20 mg/2 ml IV VIAL IV SLOW PU ONE (14:45)
[2020-09-02] MEDS: Polyethylene Glycol 3350 17 GM PACKET PO SCH (15:55)
[2020-09-02] MEDS: Magnesium Hydroxide LIQ 30 ML UDC PO PRN (20:40)
[2020-09-02] MEDS: Senna TAB 8.6 mg TAB PO PRN (20:41)
[2020-09-02] MEDS: Remdesivir 100 mg Vial 100 MG in NS 0.9% 250 ml 230 ML IV SCH (22:01)
[2020-09-03] MEDS: Calcium Carb (TUMS) 500 mg CHEW TAB PO PRN ×2 (06:38→16:31)
[2020-09-03] MEDS: Multivitamins/Minerals TAB PO SCH (08:45)
[2020-09-03] MEDS: Magnesium Hydroxide LIQ 30 ML UDC PO PRN (08:48)
[2020-09-03] MEDS: Polyethylene Glycol 3350 17 GM PACKET PO SCH (08:49)
[2020-09-03] MEDS: COENZYME Q10 200 MG PO SCH (08:50)
[2020-09-03] MEDS: RIBOFLAVIN 100 MG PO SCH ×2 (08:50→20:33)
[2020-09-03 08:53] LABS: ABS Eosinophils 0.1 10^3/ul (0-0.6); ABS Monocytes 0.8 10^3/ul (0-0.8); ABS Neutrophils 10.2 10^3/ul (1.5-7.7); Eosinophil % 0.7 %; Hematocrit 41 % (42-52); Hemoglobin 14.1 g/dL (14.0-18.0); Lymphocyte % 8.4 %; Mean Corpuscular HGB Conc 34 g/dL (31-36); Mean Corpuscular Hemoglobin 31 pg (27-31); Mean Corpuscular Volume 90 fL (80-94); Mean Platelet Volume 7.2 fL (7.4-10.4); Platelet Count 462 10^3/uL (150-450); Red Blood Count 4.61 10^6 /uL (4.18-5.48); Red Cell Distribution Width 14 % (10-15); White Blood Count 12.1 10^3/uL (3.5-10.8)
[2020-09-03 09:10] LABS: BUN/Creatinine Ratio 35.4 (8-20); Calcium 9.1 mg/dL (8.6-10.3); EGFR African American 147.8 (>60); EGFR Non-African American 122.2 (>60); Potassium 4.4 mmol/L (3.5-5.0)
[2020-09-03] MEDS: Nystatin TOP POWDER 15 GM BTL TOPICAL SCH ×3 (11:25→22:32)
[2020-09-03] MEDS: cefTRIAXone 1 gm/50 mL NS BAG 1 GM/50 ML BAG IVPB SCH (12:47)
[2020-09-03 13:28] LABS: Magnesium 2.2 mg/dL (1.9-2.7)
[2020-09-03] MEDS ORDERED: Iodixanol (CONTRAST) 320 MG/ML 100 ML SDV IV ONE (19:48)
[2020-09-03] MEDS: Remdesivir 100 mg Vial 100 MG in NS 0.9% 250 ml 230 ML IV SCH (22:27)
[2020-09-04 06:30] LABS: ABS Eosinophils 0.1 10^3/ul (0-0.6); ABS Lymphocytes 0.7 10^3/ul (1.0-4.8); ABS Monocytes 0.7 10^3/ul (0-0.8); ABS Neutrophils 9.5 10^3/ul (1.5-7.7); Eosinophil % 0.5 %; Hematocrit 36 % (42-52); Hemoglobin 12.3 g/dL (14.0-18.0); Lymphocyte % 6.5 %; Mean Corpuscular HGB Conc 34 g/dL (31-36); Mean Corpuscular Hemoglobin 30 pg (27-31); Mean Corpuscular Volume 89 fL (80-94); Mean Platelet Volume 7.2 fL (7.4-10.4); Platelet Count 444 10^3/uL (150-450); Red Blood Count 4.06 10^6 /uL (4.18-5.48); Red Cell Distribution Width 14 % (10-15)
[2020-09-04 06:51] LABS: BUN/Creatinine Ratio 34.5 (8-20); Calcium 8.3 mg/dL (8.6-10.3); EGFR African American 168.6 (>60); EGFR Non-African American 139.3 (>60); Potassium 4.2 mmol/L (3.5-5.0)
[2020-09-04] MEDS: Multivitamins/Minerals TAB PO SCH (09:48)
[2020-09-04] MEDS: COENZYME Q10 200 MG PO SCH (09:49)
[2020-09-04] MEDS: RIBOFLAVIN 100 MG PO SCH ×2 (09:50→20:25)
[2020-09-04] MEDS: Polyethylene Glycol 3350 17 GM PACKET PO SCH (09:50)
[2020-09-04] MEDS: Nystatin TOP POWDER 15 GM BTL TOPICAL SCH ×3 (09:52→20:25)
[2020-09-04] MEDS: cefTRIAXone 1 gm/50 mL NS BAG 1 GM/50 ML BAG IVPB SCH (09:53)
[2020-09-04] MEDS: Calcium Carb (TUMS) 500 mg CHEW TAB PO PRN ×3 (11:53→20:23)
[2020-09-04] MEDS ORDERED: Furosemide 20 mg/2 ml IV VIAL IV SLOW PU ONE (19:59)
[2020-09-04] MEDS: Collagenase 250 units/gm OINT 1 tube TOPICAL SCH (23:07)
[2020-09-05 06:30] LABS: Calcium 8.9 mg/dL (8.6-10.3)
[2020-09-05 06:35] LABS: BUN/Creatinine Ratio 31.6 (8-20); EGFR Non-African American 142.2 (>60)
[2020-09-05 06:53] LABS: Potassium 4.7 mmol/L (3.5-5.0)
[2020-09-05] MEDS: Nystatin TOP POWDER 15 GM BTL TOPICAL SCH ×2 (08:06→13:15)
[2020-09-05] MEDS: RIBOFLAVIN 100 MG PO SCH (08:06)
[2020-09-05] MEDS: Polyethylene Glycol 3350 17 GM PACKET PO SCH (08:06)
[2020-09-05] MEDS: COENZYME Q10 200 MG PO SCH (08:06)
[2020-09-05] MEDS: Calcium Carb (TUMS) 500 mg CHEW TAB PO PRN ×3 (08:07→17:11)
[2020-09-05] MEDS: Multivitamins/Minerals TAB PO SCH (08:07)
[2020-09-05] MEDS: Collagenase 250 units/gm OINT 1 tube TOPICAL SCH (13:15)
[2020-09-05] MEDS ORDERED: Perflutren Lipid Microsphere 3 ML VIAL ONE (16:06)
[2020-09-05] MEDS ORDERED: Furosemide 20 mg/2 ml IV VIAL IV SLOW PU ONE (18:24)
[2020-09-06] MEDS: Collagenase 250 units/gm OINT 1 tube TOPICAL SCH ×3 (05:11→21:00)
[2020-09-06] MEDS: Nystatin TOP POWDER 15 GM BTL TOPICAL SCH ×3 (05:11→14:32)
[2020-09-06] MEDS: RIBOFLAVIN 100 MG PO SCH ×3 (05:11→20:28)
[2020-09-06] MEDS: Polyethylene Glycol 3350 17 GM PACKET PO SCH (08:51)
[2020-09-06] MEDS: Multivitamins/Minerals TAB PO SCH (08:51)
[2020-09-06] MEDS: COENZYME Q10 200 MG PO SCH (08:52)
[2020-09-06] MEDS: Calcium Carb (TUMS) 500 mg CHEW TAB PO PRN ×3 (09:00→20:26)
[2020-09-06 09:28] LABS: ABS Eosinophils 0.1 10^3/ul (0-0.6); ABS Lymphocytes 0.8 10^3/ul (1.0-4.8); ABS Monocytes 0.7 10^3/ul (0-0.8); ABS Neutrophils 7.6 10^3/ul (1.5-7.7); Eosinophil % 0.7 %; Hematocrit 39 % (42-52); Lymphocyte % 9.1 %; Mean Corpuscular HGB Conc 33 g/dL (31-36); Mean Corpuscular Hemoglobin 30 pg (27-31); Mean Corpuscular Volume 92 fL (80-94); Mean Platelet Volume 6.7 fL (7.4-10.4); Platelet Count 451 10^3/uL (150-450); Red Blood Count 4.28 10^6 /uL (4.18-5.48); Red Cell Distribution Width 15 % (10-15); White Blood Count 9.3 10^3/uL (3.5-10.8)
[2020-09-06 09:50] LABS: BUN/Creatinine Ratio 30.5 (8-20); Calcium 8.8 mg/dL (8.6-10.3); EGFR African American 165.3 (>60); EGFR Non-African American 136.6 (>60); Potassium 4.3 mmol/L (3.5-5.0)
[2020-09-07] MEDS: Nystatin TOP POWDER 15 GM BTL TOPICAL SCH ×2 (03:24→07:49)
[2020-09-07] MEDS: Calcium Carb (TUMS) 500 mg CHEW TAB PO PRN (05:55)
[2020-09-07 07:36] VITALS: BP 108/65
[2020-09-07] MEDS: Multivitamins/Minerals TAB PO SCH (07:45)
[2020-09-07] MEDS: COENZYME Q10 200 MG PO SCH (07:45)
[2020-09-07] MEDS: RIBOFLAVIN 100 MG PO SCH (07:46)
[2020-09-07] MEDS: Polyethylene Glycol 3350 17 GM PACKET PO SCH (07:49)
[2020-09-07] MEDS: Collagenase 250 units/gm OINT 1 tube TOPICAL SCH (07:51)
== END 2020-09-07 15:00 | DRG 871 ==
LOC: MED 11:05 → ED 11:05 → MED 20:51
PROVIDERS: ADMIT Student in an Organized Health Care Education/Training Program; ATTEND Internal Medicine

== ENCOUNTER 2024-05-05 04:52 | Inpatient (IN) ==
[2024-05-05] MEDS ORDERED: Norepinephrine 4 MG/250mL D5W 4,000 MCG/250 ML BAG IV ONE (05:08)
[2024-05-05] MEDS: KCL 20 MEQ/100 ML IVPREMIX 20 MEQ/100 ML BAG IV ONE (05:14)
[2024-05-05] MEDS: Furosemide 40 mg/4 ml IV VIAL IV SLOW PU ONE ×2 (05:14→23:12)
[2024-05-05 05:30] LABS: Activated Partial Thrombo Time 30.6 seconds (26.0-38.0); INR 1.23 (0.85-1.14)
[2024-05-05 05:31] LABS: PCO2 Arterial 30 mmHg (35-45); PO2 Arterial 77 mmHg (80-100)
[2024-05-05 05:46] LABS: Venous Bicarbonate HCO3 13.2 mmol/L (24-28)
[2024-05-05 05:53] LABS: ABS Lymphocytes 0.7 10^3/uL (1.0-4.8); ABS Monocytes 0.3 10^3/uL (0.0-1.1); ABS Neutrophils 6.4 10^3/uL (1.5-7.6); ABS Nucleated RBC 0.01 10^3/ul; Eosinophil % 0.1 %; Hematocrit 44.3 % (38-53); Hemoglobin 14.3 g/dL (13.2-16.3); Lymphocyte % 9.3 %; Mean Corpuscular Hemoglobin 29.5 pg (27-33); Mean Corpuscular Hgb Conc 32.3 g/dL (31-36); Mean Corpuscular Volume 91.3 fL (80-97); Mean Platelet Volume 8.9 fL (7.5-11.2); Nucleated Red Blood Cells % 0.1 %/100WBC (0.0-0.8); Platelet Count 278 10^3/uL (150-450); Red Blood Count 4.85 10^6/uL (4.06-5.63); Red Cell Distribution Width 14.7 % (12-17); White Blood Count 7.4 10^3/uL (3.6-10.2)
[2024-05-05 05:57] LABS: Albumin 4.2 g/dL (3.2-5.2); Albumin/Globulin Ratio 1.4 (1-3); C Reactive Protein 5.45 mg/L (<8.01); Calcium 10.3 mg/dL (8.6-10.3); Creatinine, Serum 1.4 mg/dL (0.67-1.17); Globulin 2.9 g/dL (2-4); Potassium 5.2 mmol/L (3.5-5.0); Total Bilirubin 0.7 mg/dL (0.2-1.0); Total Protein 7.1 g/dL (6.4-8.9); eGFR CKD-EPI 53.4 (>60)
[2024-05-05 07:08] LABS: High Sensitivity Troponin 1 Hr 317 pg/mL (<20)
[2024-05-05 11:32] LABS: High Sensitivity Troponin 3 Hr 712 pg/mL (<20)
[2024-05-05] MEDS: Sulfur Hexaflouride MICROSPHR 25 MG VIAL IV PRN (12:40)
[2024-05-05] MEDS: Furosemide 40 mg/4 ml IV VIAL IV ONE (13:20)
[2024-05-05] MEDS: Iodixanol (CONTRAST) 320 MG/ML 100 ML SDV IV ONE (14:47)
[2024-05-05] MEDS ORDERED: Albuterol HFA INHALER 8 gm MDI INH PRN (18:33)
[2024-05-05] MEDS: Acetaminophen IV 1 GM/100ML 1,000 MG/100 ML BAG IV ONE (20:33)
[2024-05-05] MEDS: Furosemide 40 mg/4 ml IV VIAL ONE (23:12)
[2024-05-06 04:48] LABS: PCO2 Arterial 33 mmHg (35-45); PO2 Arterial 157 mmHg (80-100)
[2024-05-06 04:53] LABS: ABS Lymphocytes 0.8 10^3/uL (1.0-4.8); ABS Monocytes 0.5 10^3/uL (0.0-1.1); ABS Neutrophils 9.2 10^3/uL (1.5-7.6); Hematocrit 37.5 % (38-53); Hemoglobin 12.7 g/dL (13.2-16.3); Lymphocyte % 7.8 %; Mean Corpuscular Hemoglobin 30.2 pg (27-33); Mean Platelet Volume 8.5 fL (7.5-11.2); Platelet Count 196 10^3/uL (150-450); Red Blood Count 4.22 10^6/uL (4.06-5.63); Red Cell Distribution Width 14.4 % (12-17); White Blood Count 10.6 10^3/uL (3.6-10.2)
[2024-05-06 05:13] LABS: Calcium 9.4 mg/dL (8.6-10.3); Creatinine, Serum 1.13 mg/dL (0.67-1.17); Magnesium 2.3 mg/dL (1.9-2.7); eGFR CKD-EPI 69.1 (>60)
[2024-05-06] MEDS: Furosemide 40 mg/4 ml IV VIAL IV ONE (09:34)
[2024-05-06] MEDS: Morphine 4 MG/ML VIAL (1 ml) IV ONE (15:27)
[2024-05-06] MEDS ORDERED: Lidocaine 1% w EPI 1:100,000 MDV 20 ML VIAL ONE (16:30)
[2024-05-06] MEDS ORDERED: Morphine 4 MG/ML VIAL (1 ml) IV PRN (17:53)
[2024-05-07 05:22] LABS: ABS Lymphocytes 0.6 10^3/uL (1.0-4.8); ABS Monocytes 0.3 10^3/uL (0.0-1.1); ABS Neutrophils 8.3 10^3/uL (1.5-7.6); Eosinophil % 0.3 %; Hematocrit 36.5 % (38-53); Hemoglobin 12.7 g/dL (13.2-16.3); Lymphocyte % 6.2 %; Mean Corpuscular Hemoglobin 31.3 pg (27-33); Mean Corpuscular Hgb Conc 34.9 g/dL (31-36); Mean Corpuscular Volume 89.6 fL (80-97); Mean Platelet Volume 8.7 fL (7.5-11.2); Platelet Count 193 10^3/uL (150-450); Red Blood Count 4.07 10^6/uL (4.06-5.63); Red Cell Distribution Width 14.6 % (12-17); White Blood Count 9.2 10^3/uL (3.6-10.2)
[2024-05-07 05:49] LABS: Calcium 9.7 mg/dL (8.6-10.3); Creatinine, Serum 0.8 mg/dL (0.67-1.17); Magnesium 2.4 mg/dL (1.9-2.7); Phosphorus 1.9 mg/dL (2.5-5.0); Potassium 4.2 mmol/L (3.5-5.0)
[2024-05-07] MEDS ORDERED: Lidocaine 1% w EPI 1:100,000 MDV 20 ML VIAL INJ ONE (06:37)
[2024-05-07] MEDS: Midazolam 5 mg/5 ml VIAL 1 mg/ml 5 ml VIAL (5 mg) ONE (07:40)
[2024-05-07] MEDS: fentaNYL 100 mcg/2 ml 50 MCG/ML VIAL IV SLOW PU ONE ×3 (07:40→17:22)
[2024-05-07] MEDS: Midazolam 2 mg/2 ml VIAL 1 mg/ml 2 ml VIAL (2 mg) IV SLOW PU ONE ×2 (07:41→08:10)
[2024-05-07] MEDS: fentaNYL 100 mcg/2 ml 50 MCG/ML VIAL ONE (07:50)
[2024-05-07] MEDS: Lidocaine 2% PF 5 ML VIAL ONE (07:51)
[2024-05-07] MEDS ORDERED: ceFAZolin 1 GM in Dextrose 1 GM/50 ML BAG IV ONE (08:00)
[2024-05-07] MEDS: Lidocaine 1% w EPI 1:100,000 MDV 50 ML VIAL INJ ONE (08:00)
[2024-05-07] MEDS: ceFAZolin *3* GM in NS PREMIX 3 GM/100 ML BAG IV ONE (08:02)
[2024-05-07] MEDS ORDERED: Sodium Phosphate IV 0 MMOL in NS 0.9% 250 ml 250 ML IV ONE (09:42)
[2024-05-07] MEDS: Furosemide 20 mg/2 ml IV VIAL IV ONE (10:17)
[2024-05-07] MEDS: Potassium & Sodium Phos 250 mg = 1 PACKET PO ONE (12:41)
[2024-05-07] MEDS ORDERED: fentaNYL 100 mcg/2 ml 50 MCG/ML VIAL IV SLOW PU PRN (18:42)
[2024-05-08 05:31] LABS: ABS Eosinophils 0.1 10^3/uL (0.0-0.5); ABS Lymphocytes 0.5 10^3/uL (1.0-4.8); ABS Monocytes 0.4 10^3/uL (0.0-1.1); ABS Neutrophils 7.4 10^3/uL (1.5-7.6); Eosinophil % 1.4 %; Hematocrit 35.5 % (38-53); Hemoglobin 12.2 g/dL (13.2-16.3); Lymphocyte % 5.9 %; Mean Corpuscular Hemoglobin 30.6 pg (27-33); Mean Corpuscular Hgb Conc 34.3 g/dL (31-36); Mean Corpuscular Volume 89.1 fL (80-97); Mean Platelet Volume 8.4 fL (7.5-11.2); Platelet Count 195 10^3/uL (150-450); Red Blood Count 3.99 10^6/uL (4.06-5.63); Red Cell Distribution Width 14.3 % (12-17); White Blood Count 8.5 10^3/uL (3.6-10.2)
[2024-05-08 05:55] LABS: Calcium 9.2 mg/dL (8.6-10.3); Creatinine, Serum 0.72 mg/dL (0.67-1.17); Magnesium 2.2 mg/dL (1.9-2.7); Phosphorus 2.5 mg/dL (2.5-5.0); Potassium 3.9 mmol/L (3.5-5.0); eGFR CKD-EPI 97.1 (>60)
[2024-05-08 06:21] LABS: Urine Appearance Turbid; Urine Bilirubin Negative (Negative); Urine Blood 3+ (Negative); Urine Color Yellow; Urine Glucose Negative (Negative); Urine Ketones Negative (Negative); Urine Nitrite Negative (Negative); Urine Protein 1+ (>=30 mg/dL) (Negative); Urine Specific Gravity 1.038 (1.002-1.030); Urine Urobilinogen Negative (Negative)
[2024-05-08 06:24] LABS: Urine Bacteria Absent /HPF (Absent); Urine Red Blood Cell 3+(>10/hpf) /HPF (0-Trace); Urine White Blood Cell 1+(6-10/hpf) /HPF (0-Trace)
[2024-05-08] MEDS: Azithromycin 500 mg/250 ml NS 500 MG/250 ML BAG IVPB SCH (09:32)
[2024-05-08] MEDS: cefTRIAXone 1 gm/50 mL D5W 1 GM/50 ML BAG IV SCH (09:33)
[2024-05-09 06:40] LABS: ABS Basophils 0.1 10^3/uL (0.0-0.1); ABS Eosinophils 0.2 10^3/uL (0.0-0.5); ABS Lymphocytes 0.6 10^3/uL (1.0-4.8); ABS Monocytes 0.6 10^3/uL (0.0-1.1); ABS Neutrophils 7.3 10^3/uL (1.5-7.6); Eosinophil % 2.1 %; Lymphocyte % 6.4 %; Mean Corpuscular Hemoglobin 29.7 pg (27-33); Mean Corpuscular Hgb Conc 33.2 g/dL (31-36); Mean Corpuscular Volume 89.5 fL (80-97); Mean Platelet Volume 8.2 fL (7.5-11.2); Platelet Count 242 10^3/uL (150-450); Red Blood Count 4.03 10^6/uL (4.06-5.63); Red Cell Distribution Width 14.1 % (12-17); White Blood Count 8.7 10^3/uL (3.6-10.2)
[2024-05-09 06:57] LABS: Calcium 9.1 mg/dL (8.6-10.3); Creatinine, Serum 0.61 mg/dL (0.67-1.17); Magnesium 2.2 mg/dL (1.9-2.7); Phosphorus 3.1 mg/dL (2.5-5.0); Potassium 4.2 mmol/L (3.5-5.0); eGFR CKD-EPI 102.1 (>60)
[2024-05-09] MEDS ORDERED: Al Hydrox/Mg Hydrox/Simet LIQ 30 ML UDC PO PRN (12:04)
[2024-05-09] MEDS ORDERED: Calcium Carb (TUMS) 500 mg CHEW TAB PO PRN (12:04)
[2024-05-09] MEDS: COENZYME Q10 PO SCH (19:34)
[2024-05-10 05:59] LABS: Hematocrit 34.9 % (38-53); Hemoglobin 11.7 g/dL (13.2-16.3); Mean Corpuscular Hemoglobin 29.7 pg (27-33); Mean Corpuscular Hgb Conc 33.5 g/dL (31-36); Mean Corpuscular Volume 88.6 fL (80-97); Mean Platelet Volume 7.9 fL (7.5-11.2); Platelet Count 250 10^3/uL (150-450); Red Blood Count 3.94 10^6/uL (4.06-5.63); Red Cell Distribution Width 14.3 % (12-17); White Blood Count 12.6 10^3/uL (3.6-10.2)
[2024-05-10 06:19] LABS: Calcium 8.8 mg/dL (8.6-10.3); Creatinine, Serum 0.62 mg/dL (0.67-1.17); Potassium 4.3 mmol/L (3.5-5.0); eGFR CKD-EPI 101.6 (>60)
[2024-05-10] MEDS: Nystatin TOP POWDER 15 GM BTL TOPICAL PRN (09:20)
[2024-05-10] MEDS: Ondansetron 4 mg VIAL 2 MG/ML 2 ml VIAL IV PRN (18:35)
[2024-05-11] MEDS: Sulfur Hexaflouride MICROSPHR 25 MG VIAL IV PRN (09:28)
[2024-05-11 09:32] LABS: Anion Gap 8 mmol/L (2-16); Blood Urea Nitrogen 21 mg/dL (6-24); CO2 Carbon Dioxide 24 mmol/L (22-32); Calcium 9.2 mg/dL (8.6-10.3); Chloride 102 mmol/L (101-111); Creatinine, Serum 0.66 mg/dL (0.67-1.17); Glucose 91 mg/dL (70-100); Sodium 134 mmol/L (135-145); eGFR CKD-EPI 99.7 (>60)
[2024-05-11 10:43] LABS: Hematocrit 36.7 % (38-53); Hemoglobin 12.3 g/dL (13.2-16.3); Mean Corpuscular Hemoglobin 29.8 pg (27-33); Mean Corpuscular Hgb Conc 33.5 g/dL (31-36); Mean Platelet Volume 7.6 fL (7.5-11.2); Platelet Count 275 10^3/uL (150-450); Red Blood Count 4.13 10^6/uL (4.06-5.63); Red Cell Distribution Width 14.1 % (12-17); White Blood Count 11.4 10^3/uL (3.6-10.2)
[2024-05-11] MEDS: Furosemide 40 mg/4 ml IV VIAL IV SLOW PU ONE (10:43)
[2024-05-11 11:28] LABS: Potassium Redraw 4.3 mmol/L (3.5-5.0)
[2024-05-11] MEDS: Polyethylene Glycol 3350 17 GM PACKET PO PRN (14:49)
[2024-05-11] MEDS: Magnesium Hydroxide LIQ 30 ML UDC PO PRN (14:50)
[2024-05-11 19:23] LABS: Free T4 1.05 ng/dL (0.61-1.12)
[2024-05-11] MEDS: Senna TAB 8.6 mg TAB PO PRN (20:42)
[2024-05-11] MEDS: Magnesium Hydroxide LIQ 30 ML UDC PO SCH (20:42)
[2024-05-11] MEDS: guaiFENesin 100 mg/5 ml LIQ unit dose cup PO PRN (23:09)
[2024-05-12 05:41] LABS: Hematocrit 34.2 % (38-53); Hemoglobin 11.3 g/dL (13.2-16.3); Mean Corpuscular Hemoglobin 29.4 pg (27-33); Mean Corpuscular Volume 89.1 fL (80-97); Mean Platelet Volume 7.8 fL (7.5-11.2); Platelet Count 266 10^3/uL (150-450); Red Blood Count 3.83 10^6/uL (4.06-5.63); Red Cell Distribution Width 14.4 % (12-17); White Blood Count 11.1 10^3/uL (3.6-10.2)
[2024-05-12 06:08] LABS: Creatinine, Serum 0.69 mg/dL (0.67-1.17); Magnesium 2.2 mg/dL (1.9-2.7); Potassium 4.4 mmol/L (3.5-5.0); eGFR CKD-EPI 98.3 (>60)
[2024-05-12] MEDS: Furosemide 40 mg/4 ml IV VIAL IV SLOW PU ONE (11:25)
[2024-05-13 03:21] LABS: Rapid COVID-19 Molecular Undetected (Undetected)
[2024-05-13 06:48] LABS: Hematocrit 34.8 % (38-53); Hemoglobin 11.6 g/dL (13.2-16.3); Mean Corpuscular Hemoglobin 29.9 pg (27-33); Mean Corpuscular Hgb Conc 33.4 g/dL (31-36); Mean Corpuscular Volume 89.6 fL (80-97); Mean Platelet Volume 7.6 fL (7.5-11.2); Platelet Count 308 10^3/uL (150-450); Red Blood Count 3.89 10^6/uL (4.06-5.63); Red Cell Distribution Width 14.1 % (12-17); White Blood Count 11.2 10^3/uL (3.6-10.2)
[2024-05-13 07:09] LABS: Creatinine, Serum 0.75 mg/dL (0.67-1.17); Potassium 4.3 mmol/L (3.5-5.0); eGFR CKD-EPI 95.9 (>60)
[2024-05-13 10:05] VITALS: BP 110/82
[2024-05-13] MEDS: Influenza Vaccine *TRI* 2024-25* 0.5 ML SYRINGE IM ONE (10:09)
[2024-05-13] MEDS ORDERED: Albuterol/Ipratropium NEB.SOL (2.5/0.5 MG) 3 ML NEB.SOLN INH PRN (11:13)
== END 2024-05-13 12:38 | disposition home or self-care (01) | DRG 199 ==
LOC: ED 04:52 → EDHOLD 05:28 → ICU 11:29 → MED 05-08 16:12
PROVIDERS: ADMIT Internal Medicine Critical Care Medicine; ATTEND Internal Medicine Critical Care Medicine